=== PATIENT | female | born 1955 | race Caucasian/White ===

== ENCOUNTER 2018-11-24 10:44 | Day surgery (SDC) | payer OTHER, MEDICARE ==
[~2018-11-24 10:44] MED LIST: Betamethasone Acetate/Betamethasone Sod Phosphate 30 MG/5 ML MDV EPIDUR ONE; Iopamidol 200-M 10 ML vial ITHECAL ONE; Lidocaine 2% 5 ML SDV INJECT ONE; Ropivacaine 0.5% 5 MG/ML 30 ML SDV INJECT ONE
[2018-11-24] MEDS ORDERED: Lidocaine 2% 5 ML SDV ONE (11:45)
--- NOTE | 2018-11-24 19:16 | OR ---
SURGEON: Florence Munoz D.O. DATE OF PROCEDURE: 11/24/2018 PRIMARY SURGEON: Florence Munoz D.O. ASSISTANTS: OR staff present: 1. Dave Muniz. 2. Anna Johnson. 3. Smith Briggs RN. 4. Dave Lopez RT. PREOPERATIVE DIAGNOSES: 1. Lumbar spinal stenosis. 2. Lumbar degenerative disk disease. 3. Lumbar radiculopathy. POSTOPERATIVE DIAGNOSES: 1. Lumbar spinal stenosis. 2. Lumbar degenerative disk disease. 3. Lumbar radiculopathy. PROCEDURE PERFORMED: 1. Caudal epidural steroid injection. 2. Fluoroscopic guidance for needle placement. 3. Local with oral Valium for sedation. SCREENING QUESTIONS: The patient answered "no" to all of the following questions: 1. Are you allergic to latex? 2. Do you have a bleeding disorder? 3. Do you have any current local or systemic infections? 4. Are you taking any anti-inflammatories or blood thinners? 5. Do you have any joint replacements, heart valve replacements, or a pacemaker? DESCRIPTION OF PROCEDURE: The patient had the procedure thoroughly explained including all possible risks, benefits and alternatives. Consent was signed in my clinic indicating understanding and willingness to proceed. The patient presented to [facility] and was escorted to the dressing room to disrobe and change into a hospital gown. Preoperative vital signs were taken and stable. The patient reported that Valium was taken prior to the procedure. The patient was brought back to the procedure room and placed in the prone position on the procedure room table. A pillow was placed under the hips in order to flatten the lumbar lordosis. The back was prepped with ChloraPrep and sterilely draped. All personnel in the operating room were dressed in appropriate attire including surgical scrubs, head and shoe covers. This was to ensure sterility while in the treatment room. During the time fluoroscopy was in use, all personnel in the operating room wore lead mauro with thyroid collars. Sterile technique was used throughout the procedure. The patient was awake and conversant throughout the procedure. There was no evidence of infection at the site of needle insertion. Skeletal landmarks were identified under fluoroscopy for the caudal epidural. Skin was anesthetized with 2% lidocaine with a sterile 27-gauge 1.5 inch needle. Then a 20-gauge Tuohy epidural needle was placed in the epidural space with loss of resistance technique under fluoroscopic guidance. No heme, cerebrospinal fluid, or paresthesias were noted. Isovue-200 contrast dye was injected in 0.2 cubic centimeter increments and seen to outline the epidural space in both AP and lateral views. There was no intravascular flow pattern observed under live fluoroscopy. Then 12 milligrams of Celestone was slowly injected after negative aspiration. The patient tolerated the procedure well. Vital signs were stable during and after the procedure. The staff escorted the patient to the recovery area and the patient was released in stable condition after a brief stay in the recovery room monitored by the nurse. The patient was given both oral and written discharge and follow up instructions with recommendation to follow up given for 2-3 weeks. The patient voiced understanding including understanding of those signs and symptoms that would require emergency care. The patient knows how to contact the office if there are any additional problems or questions in the meantime. PREOPERATIVE PAIN: 5+/10. POSTOPERATIVE PAIN: 2+/10. FOLLOWUP: In the Pain Clinic in 3 weeks. VINCE / TESHA /[id number] MARY
== END 2018-11-24 13:00 | disposition home or self-care (01) ==
LOC: MW.SDS 10:44
PROVIDERS: ATTEND Anesthesiology
DX: M48.061 Spinal stenosis, lumbar region without neurogenic claudication (principal); M51.16 Intervertebral disc disorders with radiculopathy, lumbar region; M51.37 Other intervertebral disc degeneration, lumbosacral region; M43.10 Spondylolisthesis, site unspecified; M79.18 Myalgia, other site; M47.26 Other spondylosis with radiculopathy, lumbar region; J44.9 Chronic obstructive pulmonary disease, unspecified; F41.8 Other specified anxiety disorders; E11.40 Type 2 diabetes mellitus with diabetic neuropathy, unspecified; I10 Essential (primary) hypertension; F17.210 Nicotine dependence, cigarettes, uncomplicated; E78.00 Pure hypercholesterolemia, unspecified; Z79.82 Long term (current) use of aspirin; Z79.899 Other long term (current) drug therapy; Z79.84 Long term (current) use of oral hypoglycemic drugs
CPT/HCPCS: 62323; J2001

== ENCOUNTER 2019-07-28 16:18 | Observation (INO) | payer MEDICARE, OTHER ==
[2019-07-28] MEDS ORDERED: Ondansetron 4 MG/2 ML SDV IVPUSH ONE (16:30)
[2019-07-28] MEDS ORDERED: Sodium Chloride 0.9% 1,000 ML IV ONE (16:33)
--- NOTE | 2019-07-28 16:35 | EDM.PDOC ---
ED HPI GENERAL MEDICAL PROBLEM - General Chief Complaint: Abdominal Pain Stated Complaint: ABDOMINAL PAIN Time Seen by Provider: 07/28/19 16:29 Source of Information: Reports: Patient History Limitations: Reports: No Limitations - History of Present Illness INITIAL COMMENTS - FREE TEXT/NARRATIVE: This 63 year old female is admitted to the ED with a chief complaint of severe epigastric abdominal the is sharp through to the back since this morning. She denies drinking. She grades the pain a 10/10. She has nausea and vomiting several times today. She denies any chest pain, SOB or difficulty breathing. She denies any urinary symptoms. She denies any other complaints at this time. Onset: Today Quality: Reports: Sharp, Stabbing (through to the back) Severity: Moderate (to severe) Improves with: Reports: None Worsens with: Reports: None Abdominal Pain Score (Numeric/FACES): 10 - Related Data Allergies Allergy/AdvReac Type Severity Reaction Status Date / Time nickel Allergy Rash Verified 07/28/19 16:30 super glue Allergy Rash Uncoded 07/28/19 16:30 Home Meds: Home Meds Aspirin [Halfprin] 81 mg PO DAILY 07/28/19 [History] Carbidopa/Levodopa [Carbidopa-Levo ER 50-200] 1.5 tab PO BEDTIME 07/28/19 [ History] Gabapentin [Neurontin] 300 mg PO ASDIRECTED 07/28/19 [History] Lisinopril [Zestril] 5 mg PO DAILY 07/28/19 [History] Lovastatin 40 mg PO BEDTIME 07/28/19 [History] Sertraline HCl [Zoloft] 100 mg PO DAILY 07/28/19 [History] buPROPion HCl [Wellbutrin Xl] 150 mg PO DAILY 07/28/19 [History] metFORMIN HCl [Metformin HCl] 1,000 mg PO BIDMEALS 07/28/19 [History] ED ROS GENERAL - Review of Systems Review Of Systems: See Below Constitutional: Reports: Weight Loss (30 pounds over the past several months.) HEENT: Reports: No Symptoms Respiratory: Reports: No Symptoms Cardiovascular: Reports: No Symptoms Endocrine: Reports: No Symptoms GI/Abdominal: Reports: Abdominal Pain, Nausea, Vomiting. Denies: Black Stool, Bloody Stool, Diarrhea : Reports: No Symptoms Musculoskeletal: Reports: No Symptoms Skin: Reports: No Symptoms Neurological: Reports: No Symptoms ED EXAM, GI/ABD - Physical Exam Exam: See Below Exam Limited By: No Limitations General Appearance: Alert, Moderate Distress (complaining of abdominal pain that is sharp through to the back.) Throat/Mouth: Normal Inspection, Normal Lips, Normal Oropharynx Head: Atraumatic, Normocephalic Neck: Normal Inspection, Supple, Non-Tender, Full Range of Motion Respiratory/Chest: No Respiratory Distress, Lungs Clear, Normal Breath Sounds, Chest Non-Tender Cardiovascular: Normal Peripheral Pulses, Regular Rate, Rhythm, No Edema, No JVD , No Murmur GI/Abdominal Exam: Normal Bowel Sounds, Soft, No Distention, No Abnormal Bruit, No Mass, Guarding, Tender (tenderness in the upper abdomen extending to the epigastric area.). No: Rigid, Rebound (Female) Exam: Deferred Rectal (Female) Exam: Deferred Back Exam: Normal Inspection Extremities: Normal Inspection, Non-Tender, Normal Capillary Refill, Other ( muscle wasting noted). No: Leia's Sign Neurological: Alert, Oriented (times 3), CN II-XII Intact, Normal Reflexes Psychiatric: Normal Affect Skin Exam: Warm, Dry, Intact, Normal Color, No Rash Lymphatic: No Adenopathy Course - Vital Signs Text/Narrative:: I discussed this case with Dr. Saavedra at 8:00PM. The patient will be admitted to OBS/TELE with a diagnosis of intractable vomiting/dehydration/unexplained weigh loss. The patient agrees with the admission plan. Last Recorded V/S: Last Vital Signs Temp 95.0 F L 07/28/19 16:27 Pulse 74 07/28/19 18:29 Resp 18 07/28/19 18:29 BP 132/85 07/28/19 18:29 Pulse Ox 96 07/28/19 18:29 - Orders/Labs/Meds Orders: Active Orders 24 hr Category Date Time Status EKG Documentation Completion [RC] STAT Care 07/28/19 16:33 Active Sodium Chloride 0.9% [Normal Saline] 500 ml Med 07/28/19 19:00 Active IV .BOLUS Medication Orders Sodium Chloride (Normal Saline) 500 mls @ 500 mls/hr IV .BOLUS JAYMIE Last Admin: 07/28/19 19:09 Dose: 500 mls/hr Labs: Laboratory Tests 07/28/19 07/28/1907/27/20 Range/Units 16:51 16:51 16:51 WBC 16.90 H (4.0-11.0) K/uL RBC 5.05 (4.30-5.90) M/uL Hgb 14.8 (12.0-16.0) g/dL Hct 43.3 (36.0-46.0) % MCV 85.7 (80.0-98.0) fL MCH 29.3 (27.0-32.0) pg MCHC 34.2 (31.0-37.0) g/dL RDW Std Deviation 47.2 (28.0-62.0) fl RDW Coeff of Aj 15 (11.0-15.0) % Plt Count 300 (150-400) K/uL MPV 9.40 (7.40-12.00) fL Neut % (Auto) 87.2 H (48.0-80.0) % Lymph % (Auto) 7.5 L (16.0-40.0) % Starke % (Auto) 5.1 (0.0-15.0) % Eos % (Auto) 0.1 (0.0-7.0) % Baso % (Auto) 0.1 (0.0-1.5) % Neut # (Auto) 14.8 H (1.4-5.7) K/uL Lymph # (Auto) 1.3 (0.6-2.4) K/uL Starke # (Auto) 0.9 H (0.0-0.8) K/uL Eos # (Auto) 0.0 (0.0-0.7) K/uL Baso # (Auto) 0.0 (0.0-0.1) K/uL Nucleated RBC % 0.0 /100WBC Nucleated RBCs # 0 K/uL Lactate (0.20-2.00) mmol/L Sodium 139 (136-145) mmol/L Potassium 3.5 (3.5-5.1) mmol/L Chloride 100 (98-107) mmol/L Carbon Dioxide 24.7 (21.0-32.0) mmol/L BUN 17 (7.0-18.0) mg/dL Creatinine 0.9 (0.6-1.0) mg/dL Est Cr Clr Drug Dosing 47.03 mL/min Estimated GFR (MDRD) > 60.0 ml/min Glucose 249 H (74-106) mg/dL Calcium 9.9 (8.5-10.1) mg/dL Magnesium 1.2 L (1.8-2.4) mg/dL Total Bilirubin 0.8 (0.2-1.0) mg/dL AST 14 L (15-37) IU/L ALT 8 L (14-63) IU/L Alkaline Phosphatase 87 (46-116) U/L Total Protein 8.2 (6.4-8.2) g/dL Albumin 4.7 (3.4-5.0) g/dL Globulin 3.5 (2.6-4.0) g/dL Albumin/Globulin Ratio 1.3 (0.9-1.6) Lipase 128 (73-393) U/L Urine Color Urine Appearance Urine pH (5.0-8.0) Ur Specific [place] (1.001-1.035) Urine Protein (NEGATIVE) mg/dL Urine Glucose (UA) (NEGATIVE) mg/dL Urine Ketones (NEGATIVE) mg/dL Urine Occult Blood (NEGATIVE) Urine Nitrite (NEGATIVE) Urine Bilirubin (NEGATIVE) Urine Urobilinogen (<2.0) EU/dL Ur Leukocyte Esterase (NEGATIVE) Urine RBC (0-2/HPF) Urine WBC (0-5/HPF) Ur Epithelial Cells (NONE-FEW) Urine Bacteria (NEGATIVE) 07/28/19 07/28/19 Range/Units 18:25 19:03 WBC (4.0-11.0) K/uL RBC (4.30-5.90) M/uL Hgb (12.0-16.0) g/dL Hct (36.0-46.0) % MCV (80.0-98.0) fL MCH (27.0-32.0) pg MCHC (31.0-37.0) g/dL RDW Std Deviation (28.0-62.0) fl RDW Coeff of Aj (11.0-15.0) % Plt Count (150-400) K/uL MPV (7.40-12.00) fL Neut % (Auto) (48.0-80.0) % Lymph % (Auto) (16.0-40.0) % Starke % (Auto) (0.0-15.0) % Eos % (Auto) (0.0-7.0) % Baso % (Auto) (0.0-1.5) % Neut # (Auto) (1.4-5.7) K/uL Lymph # (Auto) (0.6-2.4) K/uL Starke # (Auto) (0.0-0.8) K/uL Eos # (Auto) (0.0-0.7) K/uL Baso # (Auto) (0.0-0.1) K/uL Nucleated RBC % /100WBC Nucleated RBCs # K/uL Lactate 1.1 (0.20-2.00) mmol/L Sodium (136-145) mmol/L Potassium (3.5-5.1) mmol/L Chloride (98-107) mmol/L Carbon Dioxide (21.0-32.0) mmol/L BUN (7.0-18.0) mg/dL Creatinine (0.6-1.0) mg/dL Est Cr Clr Drug Dosing mL/min Estimated GFR (MDRD) ml/min Glucose (74-106) mg/dL Calcium (8.5-10.1) mg/dL Magnesium (1.8-2.4) mg/dL Total Bilirubin (0.2-1.0) mg/dL AST (15-37) IU/L ALT (14-63) IU/L Alkaline Phosphatase (46-116) U/L Total Protein (6.4-8.2) g/dL Albumin (3.4-5.0) g/dL Globulin (2.6-4.0) g/dL Albumin/Globulin Ratio (0.9-1.6) Lipase (73-393) U/L Urine Color YELLOW Urine Appearance HAZY Urine pH 7.0 (5.0-8.0) Ur Specific [place] 1.025 (1.001-1.035) Urine Protein 30 H (NEGATIVE) mg/dL Urine Glucose (UA) 100 H (NEGATIVE) mg/dL Urine Ketones 40 H (NEGATIVE) mg/dL Urine Occult Blood TRACE-INTACT H (NEGATIVE) Urine Nitrite NEGATIVE (NEGATIVE) Urine Bilirubin NEGATIVE (NEGATIVE) Urine Urobilinogen 0.2 (<2.0) EU/dL Ur Leukocyte Esterase NEGATIVE (NEGATIVE) Urine RBC 0-4 (0-2/HPF) Urine WBC 0-3 (0-5/HPF) Ur Epithelial Cells OCCASIONAL (NONE-FEW) Urine Bacteria FEW (NEGATIVE) Meds: Medications Generic Name Dose Route Start Last Admin Trade Name Quentin PRN Reason Stop Dose Admin Sodium Chloride 500 mls @ 500 mls/hr 07/28/19 19:00 07/28/19 19:09 Normal Saline IV 500 mls/hr .BOLUS JAYMIE Administration Discontinued Medications Generic Name Dose Route Start Last Admin Trade Name Quentin PRN Reason Stop Dose Admin Sodium Chloride 1,000 mls @ 999 mls/hr 07/28/19 16:33 07/28/19 16:46 Normal Saline IV 07/28/19 17:33 999 mls/hr .Bolus ONE Administration Pantoprazole Sodium 40 mg/ 10 mls @ 300 mls/hr 07/28/19 18:50 07/28/19 19:11 Sodium Chloride IV 07/28/19 18:51 300 mls/hr NOW ONE Administration Iopamidol 62 ml 07/28/19 18:27 07/28/19 18:27 Isovue Multipack-370 (76%) IVPUSH 07/28/19 18:28 62 ml ONETIME ONE Administration Morphine Sulfate 4 mg 07/28/19 16:41 07/28/19 16:46 Morphine IVPUSH 07/28/19 16:42 4 mg ONETIME ONE Administration Ondansetron HCl 4 mg 07/28/19 16:30 07/28/19 16:46 Zofran IVPUSH 07/28/19 16:31 4 mg ONETIME ONE Administration Departure - Departure Time of Disposition: 20:16 Disposition: Refer to Observation Condition: Fair Clinical Impression: Intractable nausea and vomiting, Dehydration, moderate - Discharge Information *PRESCRIPTION DRUG MONITORING PROGRAM REVIEWED*: Yes *COPY OF PRESCRIPTION DRUG MONITORING REPORT IN PATIENT ELIO: Yes Referrals: Marguerite Cruz NP [Primary Care Provider] - Forms: ED Department Discharge Sepsis Event Note - Focused Exam Vital Signs: Vital Signs Temp Pulse Resp BP Pulse Ox 07/28/19 18:29 74 18 132/85 96 07/28/19 17:33 74 17 135/75 97 07/28/19 16:27 95.0 F L 95 22 H 169/125 H 98 Date Exam was Performed: 07/28/19 Time Exam was Performed: 20:10 - My Orders Last 24 Hours: My Active Orders 07/28/19 16:33 EKG Documentation Completion [RC] STAT 07/28/19 19:00 Sodium Chloride 0.9% [Normal Saline] 500 ml IV .BOLUS - Assessment/Plan Last 24 Hours: My Active Orders 07/28/19 16:33 EKG Documentation Completion [RC] STAT 07/28/19 19:00 Sodium Chloride 0.9% [Normal Saline] 500 ml IV .BOLUS
[2019-07-28] MEDS ORDERED: Morphine 4 MG/ML Syringe IVPUSH ONE (16:41)
[2019-07-28 17:23] LABS: BLOOD UREA NITROGEN,BUN 17 mg/dL (7.0-18.0); CARBON DIOXIDE,CO2 24.7 mmol/L (21.0-32.0); CHLORIDE,CL 100 mmol/L (98-107); GLUCOSE RANDOM 249 mg/dL (74-106); POTASSIUM,K 3.5 mmol/L (3.5-5.1); SODIUM,NA 139 mmol/L (136-145)
[2019-07-28] MEDS ORDERED: Iopamidol 755 MG/ML 200 ML Multipack Bottle IVPUSH ONE (18:27)
[2019-07-28] MEDS ORDERED: Pantoprazole 40 MG in Sodium Chloride 0.9% 10 ML IV ONE (18:50)
--- NOTE | 2019-07-28 18:54 | CT ---
CT abdomen and pelvis Technique: Multiple axial sections were obtained from above the dome of the diaphragm inferiorly through the pubic symphysis. Intravenous contrast was utilized. No oral contrast has been given. Comparison: No prior abdominal imaging is available. Findings: Visualized lung bases show nothing acute. Liver contains no focal parenchymal abnormality. Spleen appears within normal limits. Adrenal glands show no nodule. Pancreas shows no discrete abnormality. Gallbladder contains no calcified gallstones. Kidneys show symmetric contrast enhancement. Several minimal cortical lesions are noted within the left kidney believed to represent very minimal cysts. Several nonobstructing calculi are seen within the right kidney. Aorta shows atherosclerotic calcification without aneurysm. No retroperitoneal adenopathy or mesenteric abnormalities are seen. No pelvic mass or adenopathy is seen. No free fluid or inflammatory change is seen. Appendix not definitely visualized. Bone window settings were reviewed which shows degenerative change within the spine primarily at L5-S1 with disc space narrowing and mild spondylolisthesis due to degenerative apophyseal change. No acute osseous finding is seen. Impression: 1. Several small nonobstructing calculi within the right kidney. 2. Other findings as noted above. 3. Nothing acute is appreciated on CT study of the abdomen and pelvis. Diagnostic code #2 Study was dictated in MDT
[2019-07-28] MEDS ORDERED: Sodium Chloride 0.9% 500 ML IV SCH (19:00)
[2019-07-28] MEDS ORDERED: Albuterol/Ipratropium 3.0-0.5 MG/3 ML Neb Soln NEB PRN (20:57)
[2019-07-28] MEDS ORDERED: Ondansetron 4 MG/2 ML SDV IVPUSH PRN (20:57)
[2019-07-28] MEDS ORDERED: Morphine 10 MG/ML Syringe IVPUSH PRN (20:57)
[2019-07-28] MEDS ORDERED: Magnesium Sulfate/Water 4 GM in Premix Bag 1 BAG IV ONE (21:01)
[2019-07-28] MEDS ORDERED: Gabapentin 300 MG Cap PO SCH (21:15)
[2019-07-28 21:33] LABS: HEMOGLOBIN A1C 6.3 % (4.5-6.2)
[2019-07-28] MEDS ORDERED: Carbidopa/Levodopa 50-200 MG Tab.ER PO SCH (22:33)
[2019-07-28] MEDS ORDERED: Gabapentin 300 MG Cap PO ONE (22:34)
[2019-07-28] MEDS: Lactated Ringers 1,000 ML IV SCH (23:10)
--- NOTE | 2019-07-28 23:52 | PCM.HP.2 ---
H&P History of Present Illness - General Date of Service: 07/28/19 Admit Problem/Dx: Admission Diagnosis/Problem Admission Diagnosis/Problem Dehydration - History of Present Illness Initial Comments - Free Text/Narative: Patient is a 63 y/o F with PMH Of COPD, CABG,Depression, anxiety, hiatal hernia , HTN, HLD, lumbar radiculopathy who comes in for evaluation of severe epigastric pain since this morning. She grades the pain a 10/10. Pain is associated with nausea and vomiting several times today. She denies any chest pain, SOB or difficulty breathing. She denies any urinary symptoms. She denies any other complaints at this time. In the ER CT abdomen was obtained which showed seceral non obstructing stones in her right kidney. Patient is being admitted for further management. Onset of Symptoms: Reports: Gradual Duration of Symptoms: Reports: Day(s): Location: Reports: Abdomen Quality: Reports: Burning Improves with: Reports: None Worsens with: Reports: None Abdominal Pain Score (Numeric/FACES): 10 - Related Data Allergies/Adverse Reactions: Allergies Allergy/AdvReac Type Severity Reaction Status Date / Time nickel Allergy Rash Verified 07/28/19 16:30 super glue Allergy Rash Uncoded 07/28/19 16:30 Home Medications: Home Meds Aspirin [Halfprin] 81 mg PO DAILY 07/28/19 [History] Carbidopa/Levodopa [Carbidopa-Levo ER 50-200] 1.5 tab PO BEDTIME 07/28/19 [ History] Gabapentin [Neurontin] 300 mg PO ASDIRECTED 07/28/19 [History] Lisinopril [Zestril] 5 mg PO DAILY 07/28/19 [History] Lovastatin 40 mg PO BEDTIME 07/28/19 [History] Sertraline HCl [Zoloft] 100 mg PO DAILY 07/28/19 [History] buPROPion HCl [Wellbutrin Xl] 150 mg PO DAILY 07/28/19 [History] metFORMIN HCl [Metformin HCl] 1,000 mg PO BIDMEALS 07/28/19 [History] Past Medical History Cardiovascular History: Reports: Bypass Musculoskeletal History: Reports: Arthritis Psychiatric History: Reports: Anxiety, Depression Endocrine/Metabolic History: Reports: Diabetes, Type II - Past Surgical History GI Surgical History: Reports: Other (See Below) Other GI Surgeries/Procedures: Hernia Repair Musculoskeletal Surgical History: Reports: Knee Replacement Other Musculoskeletal Surgeries/Procedures:: Left Knee Replacement Social & Family History - Tobacco Use Smoking Status *Q: Current Every Day Smoker Years of Tobacco use: 20 Packs/Tins Daily: 1 - Caffeine Use Caffeine Use: Reports: Coffee - Recreational Drug Use Recreational Drug Use: Yes Recreational Drug Type: Reports: Marijuana/Hashish H&P Review of Systems - Review of Systems: Review Of Systems: See Below General: Denies: Fever, Chills, Malaise Pulmonary: Denies: Shortness of Breath, Wheezing, Pleuritic Chest Pain Cardiovascular: Denies: Chest Pain, Palpitations, Dyspnea on Exertion Gastrointestinal: Reports: Abdominal Pain, Decreased Appetite, Nausea, Vomiting. Denies: Anorexia, Black Stool, Bloody Stool, Constipation Genitourinary: Denies: Dysuria, Frequency, Burning Musculoskeletal: Reports: Back Pain, Leg Pain, Foot Pain. Denies: Neck Pain, Shoulder Pain, Arm Pain, Joint Pain Skin: Denies: Cyanosis, Jaundice, Mottled Psychiatric: Denies: Confusion, Depression, Mood Lability Exam - Exam Exam: See Below - Vital Signs Vital Signs: Last Vital Signs Temp 35.0 C L 07/28/19 16:27 Pulse 89 07/28/19 20:52 Resp 18 07/28/19 20:52 BP 123/78 07/28/19 20:52 Pulse Ox 96 07/28/19 20:52 Weight: 52.163 kg - Exam General: Alert, Oriented HEENT: Conjunctiva Clear Neck: Trachea Midline. No: Supple Lungs: Clear to Auscultation, Normal Respiratory Effort, Decreased Breath Sounds Cardiovascular: Regular Rate, Regular Rhythm, Normal S1, Normal S2 GI/Abdominal Exam: Normal Bowel Sounds, Soft, Non-Tender Back Exam: Decreased Range of Motion. No: CVA Tenderness (L), CVA Tenderness (R ) Skin: Warm, Dry - Patient Data Lab Results Last 24 hrs: Laboratory Results - last 24 hr 07/28/19 07/28/19 07/28/19 Range/Units 16:51 16:51 16:51 WBC 16.90 H (4.0-11.0) K/uL RBC 5.05 (4.30-5.90) M/uL Hgb 14.8 (12.0-16.0) g/dL Hct 43.3 (36.0-46.0) % MCV 85.7 (80.0-98.0) fL MCH 29.3 (27.0-32.0) pg MCHC 34.2 (31.0-37.0) g/dL RDW Std Deviation 47.2 (28.0-62.0) fl RDW Coeff of Aj 15 (11.0-15.0) % Plt Count 300 (150-400) K/uL MPV 9.40 (7.40-12.00) fL Neut % (Auto) 87.2 H (48.0-80.0) % Lymph % (Auto) 7.5 L (16.0-40.0) % [place] % (Auto) 5.1 (0.0-15.0) % Eos % (Auto) 0.1 (0.0-7.0) % Baso % (Auto) 0.1 (0.0-1.5) % Neut # (Auto) 14.8 H (1.4-5.7) K/uL Lymph # (Auto) 1.3 (0.6-2.4) K/uL [place] # (Auto) 0.9 H (0.0-0.8) K/uL Eos # (Auto) 0.0 (0.0-0.7) K/uL Baso # (Auto) 0.0 (0.0-0.1) K/uL Nucleated RBC % 0.0 /100WBC Nucleated RBCs # 0 K/uL Lactate (0.20-2.00) mmol/L Sodium 139 (136-145) mmol/L Potassium 3.5 (3.5-5.1) mmol/L Chloride 100 (98-107) mmol/L Carbon Dioxide 24.7 (21.0-32.0) mmol/L BUN 17 (7.0-18.0) mg/dL Creatinine 0.9 (0.6-1.0) mg/dL Est Cr Clr Drug Dosing 47.03 mL/min Estimated GFR (MDRD) > 60.0 ml/min Glucose 249 H (74-106) mg/dL Hemoglobin A1c (4.5-6.2) % Calcium 9.9 (8.5-10.1) mg/dL Magnesium 1.2 L (1.8-2.4) mg/dL Total Bilirubin 0.8 (0.2-1.0) mg/dL AST 14 L (15-37) IU/L ALT 8 L (14-63) IU/L Alkaline Phosphatase 87 (46-116) U/L Total Protein 8.2 (6.4-8.2) g/dL Albumin 4.7 (3.4-5.0) g/dL Globulin 3.5 (2.6-4.0) g/dL Albumin/Globulin Ratio 1.3 (0.9-1.6) Lipase 128 (73-393) U/L Urine Color Urine Appearance Urine pH (5.0-8.0) Ur Specific [place] (1.001-1.035) Urine Protein (NEGATIVE) mg/dL Urine Glucose (UA) (NEGATIVE) mg/dL Urine Ketones (NEGATIVE) mg/dL Urine Occult Blood (NEGATIVE) Urine Nitrite (NEGATIVE) Urine Bilirubin (NEGATIVE) Urine Urobilinogen (<2.0) EU/dL Ur Leukocyte Esterase (NEGATIVE) Urine RBC (0-2/HPF) Urine WBC (0-5/HPF) Ur Epithelial Cells (NONE-FEW) Urine Bacteria (NEGATIVE) 07/28/19 07/28/19 07/28/19 Range/Units 18:25 19:03 19:03 WBC (4.0-11.0) K/uL RBC (4.30-5.90) M/uL Hgb (12.0-16.0) g/dL Hct (36.0-46.0) % MCV (80.0-98.0) fL MCH (27.0-32.0) pg MCHC (31.0-37.0) g/dL RDW Std Deviation (28.0-62.0) fl RDW Coeff of Aj (11.0-15.0) % Plt Count (150-400) K/uL MPV (7.40-12.00) fL Neut % (Auto) (48.0-80.0) % Lymph % (Auto) (16.0-40.0) % [place] % (Auto) (0.0-15.0) % Eos % (Auto) (0.0-7.0) % Baso % (Auto) (0.0-1.5) % Neut # (Auto) (1.4-5.7) K/uL Lymph # (Auto) (0.6-2.4) K/uL [place] # (Auto) (0.0-0.8) K/uL Eos # (Auto) (0.0-0.7) K/uL Baso # (Auto) (0.0-0.1) K/uL Nucleated RBC % /100WBC Nucleated RBCs # K/uL Lactate 1.1 (0.20-2.00) mmol/L Sodium (136-145) mmol/L Potassium (3.5-5.1) mmol/L Chloride (98-107) mmol/L Carbon Dioxide (21.0-32.0) mmol/L BUN (7.0-18.0) mg/dL Creatinine (0.6-1.0) mg/dL Est Cr Clr Drug Dosing mL/min Estimated GFR (MDRD) ml/min Glucose (74-106) mg/dL Hemoglobin A1c 6.3 H (4.5-6.2) % Calcium (8.5-10.1) mg/dL Magnesium (1.8-2.4) mg/dL Total Bilirubin (0.2-1.0) mg/dL AST (15-37) IU/L ALT (14-63) IU/L Alkaline Phosphatase (46-116) U/L Total Protein (6.4-8.2) g/dL Albumin (3.4-5.0) g/dL Globulin (2.6-4.0) g/dL Albumin/Globulin Ratio (0.9-1.6) Lipase (73-393) U/L Urine Color YELLOW Urine Appearance HAZY Urine pH 7.0 (5.0-8.0) Ur Specific [place] 1.025 (1.001-1.035) Urine Protein 30 H (NEGATIVE) mg/dL Urine Glucose (UA) 100 H (NEGATIVE) mg/dL Urine Ketones 40 H (NEGATIVE) mg/dL Urine Occult Blood TRACE-INTACT H (NEGATIVE) Urine Nitrite NEGATIVE (NEGATIVE) Urine Bilirubin NEGATIVE (NEGATIVE) Urine Urobilinogen 0.2 (<2.0) EU/dL Ur Leukocyte Esterase NEGATIVE (NEGATIVE) Urine RBC 0-4 (0-2/HPF) Urine WBC 0-3 (0-5/HPF) Ur Epithelial Cells OCCASIONAL (NONE-FEW) Urine Bacteria FEW (NEGATIVE) Result Diagrams: 07/28/19 16:51 07/28/19 16:51 Sepsis Event Note - Evaluation Sepsis Screening Result: No Definite Risk - Focused Exam Vital Signs: Vital Signs Temp Pulse Resp BP Pulse Ox 07/28/19 20:52 89 18 123/78 96 07/28/19 18:29 74 18 132/85 96 07/28/19 17:33 74 17 135/75 97 07/28/19 16:27 35.0 C L 95 22 H 169/125 H 98 Date Exam was Performed: 07/29/19 Time Exam was Performed: 00:36 - Problem List (1) Intractable nausea and vomiting SNOMED Code(s): 427946280 ICD Code: R11.2 - NAUSEA WITH VOMITING, UNSPECIFIED Status: Acute Current Visit: Yes Problem List Initiated/Reviewed/Updated: Yes Orders Last 24hrs: Active Orders 24 hr Category Date Time Status Admission Status [Patient Status] [ADT] Stat ADT 07/28/19 20:17 Active Ambulate [RC] ASDIRECTED Care 07/28/19 20:57 Active Ambulate [RC] PER UNIT ROUTINE Care 07/28/19 20:59 Active Antiembolic Devices [RC] PER UNIT ROUTINE Care 07/28/19 20:59 Active EKG Documentation Completion [RC] STAT Care 07/28/19 16:33 Active Oxygen Therapy [RC] PRN Care 07/28/19 20:58 Active RT Aerosol Therapy [RC] ASDIRECTED Care 07/28/19 21:00 Active Urinary Catheter Assessment [RC] ASDIRECTED Care 07/28/19 20:57 Active VTE/DVT Education [RC] PER UNIT ROUTINE Care 07/28/19 20:58 Active Vital Signs [RC] Q4H Care 07/28/19 20:58 Active Clear Liquid Diet [DIET] Diet 07/28/19 Dinner Active Albuterol/Ipratropium [DuoNeb 3.0-0.5 MG/3 ML] Med 07/28/19 20:57 Active 3 ml NEB Q4HRRT PRN Aspirin [Halfprin] Med 07/29/19 09:00 Active 81 mg PO DAILY Carbidopa/Levodopa [Sinemet Cr 50-200 mg] Med 07/28/19 22:33 Active 1.5 tab PO BEDTIME Gabapentin [Neurontin] Med 07/28/19 21:15 Active 300 mg PO ASDIRECTED Insulin Aspart [NovoLOG] Med 07/29/19 07:30 Active See Protocol SUBCUT TIDAC Lactated Ringers [Ringers, Lactated] 1,000 ml Med 07/28/19 21:00 Active IV ASDIRECTED Lovastatin [Lovastatin] Med 07/29/19 21:00 Active 40 mg PO BEDTIME Morphine Med 07/28/19 20:57 Active 2 mg IVPUSH Q4H PRN Ondansetron [Zofran] Med 07/28/19 20:57 Active 4 mg IVPUSH Q4H PRN Sertraline [Zoloft] Med 07/29/19 09:00 Active 100 mg PO DAILY Sodium Chloride 0.9% [Normal Saline] 500 ml Med 07/28/19 19:00 Active IV .BOLUS buPROPion [Wellbutrin XL] Med 07/29/19 09:00 Active 150 mg PO DAILY lisinopriL [Prinivil] Med 07/29/19 09:00 Active 5 mg PO DAILY Sequential Compression Device [OM.PC] Per Unit Routine Oth 07/28/19 20:59 Ordered Resuscitation Status Routine Resus Stat 07/28/19 20:57 Ordered Medication Orders Albuterol/Ipratropium (Duoneb 3.0-0.5 Mg/3 Ml) 3 ml NEB Q4HRRT PRN PRN Reason: Shortness Of Breath/wheezing Aspirin (Halfprin) 81 mg PO DAILY JAYMIE Bupropion HCl (Wellbutrin Xl) 150 mg PO DAILY JAYMIE Carbidopa/Levodopa (Sinemet Cr 50-200 Mg) 1.5 tab PO BEDTIME JAYMIE Last Admin: 07/28/19 23:37 Dose: 1.5 tab Gabapentin (Neurontin) 300 mg PO ASDIRECTED JAYMIE Sodium Chloride (Normal Saline) 500 mls @ 500 mls/hr IV .BOLUS JAYMIE Last Admin: 07/28/19 19:09 Dose: 500 mls/hr Lactated Ringer's (Ringers, Lactated) 1,000 mls @ 125 mls/hr IV ASDIRECTED JAYMIE Last Admin: 07/28/19 23:10 Dose: 125 mls/hr Insulin Aspart (Novolog) 0 unit SUBCUT TIDAC JAYMIE; Protocol Lisinopril (Prinivil) 5 mg PO DAILY JAYMIE Morphine Sulfate (Morphine) 2 mg IVPUSH Q4H PRN PRN Reason: Pain (severe 7-10) Stop: 07/29/19 20:59 Non-Formulary Medication (Lovastatin [Lovastatin]) 40 mg PO BEDTIME JAYMIE Ondansetron HCl (Zofran) 4 mg IVPUSH Q4H PRN PRN Reason: Nausea/Vomiting Sertraline HCl (Zoloft) 100 mg PO DAILY JAYMIE Assessment/Plan Comment:: 63 y/o F admitted for epigastric pain,.N/V, Nephrolithiasis Will start fluids Will star clear diet advance as tolerated Morphine for pain, PPI daily UA noted Monitor and replete electrolytes SSI DuoNEbs Check troponin
[2019-07-29 07:12] LABS: BLOOD UREA NITROGEN,BUN 14 mg/dL (7.0-18.0); CARBON DIOXIDE,CO2 28.9 mmol/L (21.0-32.0); CHLORIDE,CL 104 mmol/L (98-107); GLUCOSE RANDOM 96 mg/dL (74-106); POTASSIUM,K 3.6 mmol/L (3.5-5.1); SODIUM,NA 140 mmol/L (136-145)
[2019-07-29] MEDS: Insulin Aspart 100 Units/ML 3 ML Pen SUBCUT SCH ×3 (08:12→17:32)
[2019-07-29] MEDS ORDERED: Sertraline 100 MG Tab PO SCH (09:00)
[2019-07-29] MEDS ORDERED: buPROPion 150 MG Tab.ER PO SCH (09:00)
[2019-07-29] MEDS ORDERED: Lisinopril 5 MG Tab PO SCH (09:00)
[2019-07-29] MEDS ORDERED: Aspirin 81 MG Tab.EC PO SCH (09:00)
[2019-07-29] MEDS ORDERED: Pantoprazole 40 MG in Sodium Chloride 0.9% 10 ML IV SCH (09:00)
[2019-07-29] MEDS ORDERED: Ketorolac 30 MG/ML SDV IVPUSH PRN (11:23)
[2019-07-29] MEDS ORDERED: Metoclopramide 10 MG/2 ML SDV IV PRN (11:31)
[2019-07-29] MEDS ORDERED: diphenhydrAMINE 50 MG/ML SDV IVPUSH ONE (11:32)
--- NOTE | 2019-07-29 12:48 | PCM.PN ---
- General Info Date of Service: 07/29/19 Subjective Update: Patient reports severe abdominal pain and nausea with vomiting started after receiving IV protonix this morning. Prior to this, patient reported eating clear liquid breakfast without any difficulty. No pain overnight. - Patient Data Vitals - Most Recent: Last Vital Signs Temp 97.4 F 07/29/19 08:00 Pulse 62 07/29/19 08:00 Resp 16 07/29/19 08:00 BP 124/82 07/29/19 09:10 Pulse Ox 98 07/29/19 08:00 Weight - Most Recent: 115 lb I&O - Last 24 Hours: Intake & Output 07/28/19 07/29/19 07/29/19 22:59 06:59 14:59 Intake Total 620 Balance 620 Lab Results Last 24 Hours: Laboratory Results - last 24 hr 07/28/19 07/28/19 07/28/19 Range/Units 16:51 16:51 16:51 WBC 16.90 H (4.0-11.0) K/uL RBC 5.05 (4.30-5.90) M/uL Hgb 14.8 (12.0-16.0) g/dL Hct 43.3 (36.0-46.0) % MCV 85.7 (80.0-98.0) fL MCH 29.3 (27.0-32.0) pg MCHC 34.2 (31.0-37.0) g/dL RDW Std Deviation 47.2 (28.0-62.0) fl RDW Coeff of Aj 15 (11.0-15.0) % Plt Count 300 (150-400) K/uL MPV 9.40 (7.40-12.00) fL Neut % (Auto) 87.2 H (48.0-80.0) % Lymph % (Auto) 7.5 L (16.0-40.0) % [place] % (Auto) 5.1 (0.0-15.0) % Eos % (Auto) 0.1 (0.0-7.0) % Baso % (Auto) 0.1 (0.0-1.5) % Neut # (Auto) 14.8 H (1.4-5.7) K/uL Lymph # (Auto) 1.3 (0.6-2.4) K/uL [place] # (Auto) 0.9 H (0.0-0.8) K/uL Eos # (Auto) 0.0 (0.0-0.7) K/uL Baso # (Auto) 0.0 (0.0-0.1) K/uL Nucleated RBC % 0.0 /100WBC Nucleated RBCs # 0 K/uL Lactate (0.20-2.00) mmol/L Sodium 139 (136-145) mmol/L Potassium 3.5 (3.5-5.1) mmol/L Chloride 100 (98-107) mmol/L Carbon Dioxide 24.7 (21.0-32.0) mmol/L BUN 17 (7.0-18.0) mg/dL Creatinine 0.9 (0.6-1.0) mg/dL Est Cr Clr Drug Dosing 47.03 mL/min Estimated GFR (MDRD) > 60.0 ml/min Glucose 249 H (74-106) mg/dL POC Glucose (60-110) mg/dL Hemoglobin A1c (4.5-6.2) % Calcium 9.9 (8.5-10.1) mg/dL Phosphorus (2.6-4.7) mg/dL Magnesium 1.2 L (1.8-2.4) mg/dL Total Bilirubin 0.8 (0.2-1.0) mg/dL AST 14 L (15-37) IU/L ALT 8 L (14-63) IU/L Alkaline Phosphatase 87 (46-116) U/L Troponin I (0.000-0.056) ng/mL Total Protein 8.2 (6.4-8.2) g/dL Albumin 4.7 (3.4-5.0) g/dL Globulin 3.5 (2.6-4.0) g/dL Albumin/Globulin Ratio 1.3 (0.9-1.6) Lipase 128 (73-393) U/L Urine Color Urine Appearance Urine pH (5.0-8.0) Ur Specific [place] (1.001-1.035) Urine Protein (NEGATIVE) mg/dL Urine Glucose (UA) (NEGATIVE) mg/dL Urine Ketones (NEGATIVE) mg/dL Urine Occult Blood (NEGATIVE) Urine Nitrite (NEGATIVE) Urine Bilirubin (NEGATIVE) Urine Urobilinogen (<2.0) EU/dL Ur Leukocyte Esterase (NEGATIVE) Urine RBC (0-2/HPF) Urine WBC (0-5/HPF) Ur Epithelial Cells (NONE-FEW) Urine Bacteria (NEGATIVE) 07/28/19 07/28/19 07/28/19 Range/Units 18:25 19:03 19:03 WBC (4.0-11.0) K/uL RBC (4.30-5.90) M/uL Hgb (12.0-16.0) g/dL Hct (36.0-46.0) % MCV (80.0-98.0) fL MCH (27.0-32.0) pg MCHC (31.0-37.0) g/dL RDW Std Deviation (28.0-62.0) fl RDW Coeff of Aj (11.0-15.0) % Plt Count (150-400) K/uL MPV (7.40-12.00) fL Neut % (Auto) (48.0-80.0) % Lymph % (Auto) (16.0-40.0) % [place] % (Auto) (0.0-15.0) % Eos % (Auto) (0.0-7.0) % Baso % (Auto) (0.0-1.5) % Neut # (Auto) (1.4-5.7) K/uL Lymph # (Auto) (0.6-2.4) K/uL [place] # (Auto) (0.0-0.8) K/uL Eos # (Auto) (0.0-0.7) K/uL Baso # (Auto) (0.0-0.1) K/uL Nucleated RBC % /100WBC Nucleated RBCs # K/uL Lactate 1.1 (0.20-2.00) mmol/L Sodium (136-145) mmol/L Potassium (3.5-5.1) mmol/L Chloride (98-107) mmol/L Carbon Dioxide (21.0-32.0) mmol/L BUN (7.0-18.0) mg/dL Creatinine (0.6-1.0) mg/dL Est Cr Clr Drug Dosing mL/min Estimated GFR (MDRD) ml/min Glucose (74-106) mg/dL POC Glucose (60-110) mg/dL Hemoglobin A1c 6.3 H (4.5-6.2) % Calcium (8.5-10.1) mg/dL Phosphorus (2.6-4.7) mg/dL Magnesium (1.8-2.4) mg/dL Total Bilirubin (0.2-1.0) mg/dL AST (15-37) IU/L ALT (14-63) IU/L Alkaline Phosphatase (46-116) U/L Troponin I (0.000-0.056) ng/mL Total Protein (6.4-8.2) g/dL Albumin (3.4-5.0) g/dL Globulin (2.6-4.0) g/dL Albumin/Globulin Ratio (0.9-1.6) Lipase (73-393) U/L Urine Color YELLOW Urine Appearance HAZY Urine pH 7.0 (5.0-8.0) Ur Specific [place] 1.025 (1.001-1.035) Urine Protein 30 H (NEGATIVE) mg/dL Urine Glucose (UA) 100 H (NEGATIVE) mg/dL Urine Ketones 40 H (NEGATIVE) mg/dL Urine Occult Blood TRACE-INTACT H (NEGATIVE) Urine Nitrite NEGATIVE (NEGATIVE) Urine Bilirubin NEGATIVE (NEGATIVE) Urine Urobilinogen 0.2 (<2.0) EU/dL Ur Leukocyte Esterase NEGATIVE (NEGATIVE) Urine RBC 0-4 (0-2/HPF) Urine WBC 0-3 (0-5/HPF) Ur Epithelial Cells OCCASIONAL (NONE-FEW) Urine Bacteria FEW (NEGATIVE) 07/29/19 07/29/19 07/29/19 Range/Units 00:50 06:30 06:30 WBC 9.48 (4.0-11.0) K/uL RBC 4.26 L (4.30-5.90) M/uL Hgb 12.2 (12.0-16.0) g/dL Hct 37.2 (36.0-46.0) % MCV 87.3 (80.0-98.0) fL MCH 28.6 (27.0-32.0) pg MCHC 32.8 (31.0-37.0) g/dL RDW Std Deviation 48.3 (28.0-62.0) fl RDW Coeff of Aj 15 (11.0-15.0) % Plt Count 251 (150-400) K/uL MPV 9.20 (7.40-12.00) fL Neut % (Auto) 63.8 (48.0-80.0) % Lymph % (Auto) 27.7 (16.0-40.0) % Cass % (Auto) 8.2 (0.0-15.0) % Eos % (Auto) 0.2 (0.0-7.0) % Baso % (Auto) 0.1 (0.0-1.5) % Neut # (Auto) 6.0 H (1.4-5.7) K/uL Lymph # (Auto) 2.6 H (0.6-2.4) K/uL [place] # (Auto) 0.8 (0.0-0.8) K/uL Eos # (Auto) 0.0 (0.0-0.7) K/uL Baso # (Auto) 0.0 (0.0-0.1) K/uL Nucleated RBC % 0.0 /100WBC Nucleated RBCs # 0 K/uL Lactate (0.20-2.00) mmol/L Sodium 140 (136-145) mmol/L Potassium 3.6 (3.5-5.1) mmol/L Chloride 104 (98-107) mmol/L Carbon Dioxide 28.9 (21.0-32.0) mmol/L BUN 14 (7.0-18.0) mg/dL Creatinine 0.7 (0.6-1.0) mg/dL Est Cr Clr Drug Dosing 60.46 mL/min Estimated GFR (MDRD) > 60.0 ml/min Glucose 96 (74-106) mg/dL POC Glucose (60-110) mg/dL Hemoglobin A1c (4.5-6.2) % Calcium 8.7 (8.5-10.1) mg/dL Phosphorus 3.6 (2.6-4.7) mg/dL Magnesium 3.1 H (1.8-2.4) mg/dL Total Bilirubin (0.2-1.0) mg/dL AST (15-37) IU/L ALT (14-63) IU/L Alkaline Phosphatase (46-116) U/L Troponin I < 0.050 (0.000-0.056) ng/mL Total Protein (6.4-8.2) g/dL Albumin (3.4-5.0) g/dL Globulin (2.6-4.0) g/dL Albumin/Globulin Ratio (0.9-1.6) Lipase (73-393) U/L Urine Color Urine Appearance Urine pH (5.0-8.0) Ur Specific [place] (1.001-1.035) Urine Protein (NEGATIVE) mg/dL Urine Glucose (UA) (NEGATIVE) mg/dL Urine Ketones (NEGATIVE) mg/dL Urine Occult Blood (NEGATIVE) Urine Nitrite (NEGATIVE) Urine Bilirubin (NEGATIVE) Urine Urobilinogen (<2.0) EU/dL Ur Leukocyte Esterase (NEGATIVE) Urine RBC (0-2/HPF) Urine WBC (0-5/HPF) Ur Epithelial Cells (NONE-FEW) Urine Bacteria (NEGATIVE) 07/29/19 07/29/19 Range/Units 07:14 11:49 WBC (4.0-11.0) K/uL RBC (4.30-5.90) M/uL Hgb (12.0-16.0) g/dL Hct (36.0-46.0) % MCV (80.0-98.0) fL MCH (27.0-32.0) pg MCHC (31.0-37.0) g/dL RDW Std Deviation (28.0-62.0) fl RDW Coeff of Aj (11.0-15.0) % Plt Count (150-400) K/uL MPV (7.40-12.00) fL Neut % (Auto) (48.0-80.0) % Lymph % (Auto) (16.0-40.0) % Cass % (Auto) (0.0-15.0) % Eos % (Auto) (0.0-7.0) % Baso % (Auto) (0.0-1.5) % Neut # (Auto) (1.4-5.7) K/uL Lymph # (Auto) (0.6-2.4) K/uL Cass # (Auto) (0.0-0.8) K/uL Eos # (Auto) (0.0-0.7) K/uL Baso # (Auto) (0.0-0.1) K/uL Nucleated RBC % /100WBC Nucleated RBCs # K/uL Lactate (0.20-2.00) mmol/L Sodium (136-145) mmol/L Potassium (3.5-5.1) mmol/L Chloride (98-107) mmol/L Carbon Dioxide (21.0-32.0) mmol/L BUN (7.0-18.0) mg/dL Creatinine (0.6-1.0) mg/dL Est Cr Clr Drug Dosing mL/min Estimated GFR (MDRD) ml/min Glucose (74-106) mg/dL POC Glucose 89 164 H (60-110) mg/dL Hemoglobin A1c (4.5-6.2) % Calcium (8.5-10.1) mg/dL Phosphorus (2.6-4.7) mg/dL Magnesium (1.8-2.4) mg/dL Total Bilirubin (0.2-1.0) mg/dL AST (15-37) IU/L ALT (14-63) IU/L Alkaline Phosphatase (46-116) U/L Troponin I (0.000-0.056) ng/mL Total Protein (6.4-8.2) g/dL Albumin (3.4-5.0) g/dL Globulin (2.6-4.0) g/dL Albumin/Globulin Ratio (0.9-1.6) Lipase (73-393) U/L Urine Color Urine Appearance Urine pH (5.0-8.0) Ur Specific [place] (1.001-1.035) Urine Protein (NEGATIVE) mg/dL Urine Glucose (UA) (NEGATIVE) mg/dL Urine Ketones (NEGATIVE) mg/dL Urine Occult Blood (NEGATIVE) Urine Nitrite (NEGATIVE) Urine Bilirubin (NEGATIVE) Urine Urobilinogen (<2.0) EU/dL Ur Leukocyte Esterase (NEGATIVE) Urine RBC (0-2/HPF) Urine WBC (0-5/HPF) Ur Epithelial Cells (NONE-FEW) Urine Bacteria (NEGATIVE) Med Orders - Current: Current Medications Albuterol/Ipratropium (Duoneb 3.0-0.5 Mg/3 Ml) 3 ml NEB Q4HRRT PRN PRN Reason: Shortness Of Breath/wheezing Aspirin (Halfprin) 81 mg PO DAILY [facility]MIE Last Admin: 07/29/19 09:10 Dose: 81 mg Bupropion HCl (Wellbutrin Xl) 150 mg PO DAILY [facility] Last Admin: 07/29/19 09:10 Dose: 150 mg Carbidopa/Levodopa (Sinemet Cr 50-200 Mg) 1.5 tab PO BEDTIME JAYMIE Last Admin: 07/28/19 23:37 Dose: 1.5 tab Gabapentin (Neurontin) 300 mg PO ASDIRECTED [facility] Sodium Chloride (Normal Saline) 500 mls @ 500 mls/hr IV .BOLUS [facility] Last Admin: 07/28/19 19:09 Dose: 500 mls/hr Lactated Ringer's (Ringers, Lactated) 1,000 mls @ 125 mls/hr IV ASDIRECTED [facility] Last Admin: 07/28/19 23:10 Dose: 125 mls/hr Insulin Aspart (Novolog) 0 unit SUBCUT TIDAC [facility]; Protocol Last Admin: 07/29/19 12:18 Dose: Not Given Ketorolac Tromethamine (Toradol) 30 mg IVPUSH Q6H PRN PRN Reason: Pain Lisinopril (Prinivil) 5 mg PO DAILY [facility] Last Admin: 07/29/19 09:10 Dose: 5 mg Metoclopramide HCl (Reglan) 5 mg IV QID PRN PRN Reason: Nausea Last Admin: 07/29/19 12:17 Dose: 5 mg Morphine Sulfate (Morphine) 2 mg IVPUSH Q4H PRN PRN Reason: Pain (severe 7-10) Stop: 07/29/19 20:59 Last Admin: 07/29/19 09:52 Dose: 2 mg Non-Formulary Medication (Lovastatin [Lovastatin]) 40 mg PO BEDTIME [facility] Ondansetron HCl (Zofran) 4 mg IVPUSH Q4H PRN PRN Reason: Nausea/Vomiting Last Admin: 07/29/19 09:43 Dose: 4 mg Sertraline HCl (Zoloft) 100 mg PO DAILY [facility] Last Admin: 07/29/19 09:10 Dose: 100 mg Discontinued Medications Carbidopa/Levodopa (Sinemet Cr 50-200 Mg) 1.5 tab PO BEDTIME [facility] Diphenhydramine HCl (Benadryl) 25 mg IVPUSH ONETIME ONE Stop: 07/29/19 11:33 Last Admin: 07/29/19 12:35 Dose: Not Given Gabapentin (Neurontin) 300 mg PO ONETIME ONE Stop: 07/28/19 22:35 Last Admin: 07/28/19 23:09 Dose: 300 mg Sodium Chloride (Normal Saline) 1,000 mls @ 999 mls/hr IV .Bolus ONE Stop: 07/28/19 17:33 Last Admin: 07/28/19 16:46 Dose: 999 mls/hr Pantoprazole Sodium 40 mg/ (Sodium Chloride) 10 mls @ 300 mls/hr IV NOW ONE Stop: 07/28/19 18:51 Last Admin: 07/28/19 19:11 Dose: 300 mls/hr Magnesium Sulfate 4 gm/ Premix 100 mls @ 50 mls/hr IV ONETIME ONE Stop: 07/28/19 23:00 Last Admin: 07/28/19 23:08 Dose: 50 mls/hr Pantoprazole Sodium 40 mg/ (Sodium Chloride) 10 mls @ 300 mls/hr IV DAILY JAYMIE Last Admin: 07/29/19 09:10 Dose: 300 mls/hr Iopamidol (Isovue Multipack-370 (76%)) 62 ml IVPUSH ONETIME ONE Stop: 07/28/19 18:28 Last Admin: 07/28/19 18:27 Dose: 62 ml Morphine Sulfate (Morphine) 4 mg IVPUSH ONETIME ONE Stop: 07/28/19 16:42 Last Admin: 07/28/19 16:46 Dose: 4 mg Ondansetron HCl (Zofran) 4 mg IVPUSH ONETIME ONE Stop: 07/28/19 16:31 Last Admin: 07/28/19 16:46 Dose: 4 mg - Exam General: Alert, Oriented, Cooperative, Mild Distress Lungs: Clear to Auscultation, Normal Respiratory Effort Cardiovascular: Regular Rate, Regular Rhythm GI/Abdominal Exam: Normal Bowel Sounds, Soft, Non-Tender, No Distention Extremities: Normal Inspection, No Pedal Edema Sepsis Event Note - Evaluation Sepsis Screening Result: No Definite Risk - Focused Exam Vital Signs: Vital Signs Temp Pulse Resp BP BP Pulse Ox 07/29/19 09:10 124/82 07/29/19 08:00 97.4 F 62 16 161/82 H 98 07/29/19 04:00 97.6 F 60 16 118/64 95 Date Exam was Performed: 07/29/19 Time Exam was Performed: 12:50 - Problem List Review Problem List Initiated/Reviewed/Updated: Yes - My Orders Last 24 Hours: My Active Orders 07/29/19 11:23 Ketorolac [Toradol] 30 mg IVPUSH Q6H PRN 07/29/19 11:31 Metoclopramide [Reglan] 5 mg IV QID PRN 07/29/19 Dinner NPO Now [Nothing per Oral Now Diet] [DIET] - Plan Plan:: Assessment and Plan: 1. Epigastric pain, nausea and vomiting likely secondary to gastritis: - Will make patient NPO this morning. Continue IV LR 125 cc/hr. CT abd/pelvis showed no acute findings but did show several non-obstructing stones in right kidney. Will start IV reglan 5 mg qid prn. Recommend EGD as outpatient. Will continue to monitor abdominal pain. - Discontinue IV PPI as patient reported abdominal pain shortly after being administered this medication. 2. Diabetes mellitus type 2: - SSI, accucheks TIDAC. 3. Past medical history of COPD, [place] s/p CABG, HTN, hyperlipidemia, depression and anxiety: - Resume home medications. 4. DVT prophylaxis: SCD's.
[2019-07-29] MEDS: Lactated Ringers 1,000 ML IV SCH (13:22)
--- NOTE | 2019-07-29 18:58 | PCM.DCSUM1 ---
Discharge Summary - Hospital Course Free Text/Narrative:: 63-year-old female admitted for epigastric pain, nausea and vomiting. She has a PMH of COPD, MS s/p CABG, HTN, hyperlipidemia, depression and anxiety. CT abd/ pelvis showed no acute findings but did show several non-obstructing stones in her right kidney. CBC and CMP were unremarkable. UA was only notable for occult blood. Patient was made NPO, started on IV fluids and started on IV reglan 5 mg QID prn. Patient's abdominal pain improved on day of discharge. She was able to tolerate clear liquids on day of discharge and reported no nausea or vomiting. Advised to follow-up with PCP Marguerite Bravo. Patient would benefit from EGD as an outpatient. - Discharge Data Discharge Date: 07/29/19 Discharge Disposition: Home, Self-Care 01 Condition: Stable - Referral to Home Health Primary Care Physician: Marguerite Cruz [employer] - Patient Instructions Diet: Clear Liquid Diet Diet, Other: Advance diet slowly as tolerated Activity: As Tolerated Notify Provider of: Fever, Increased Pain, Swelling and Redness, Drainage, Nausea and/or Vomiting - Discharge Plan *PRESCRIPTION DRUG MONITORING PROGRAM REVIEWED*: Not Applicable *COPY OF PRESCRIPTION DRUG MONITORING REPORT IN PATIENT ELIO: Not Applicable Prescriptions/Med Rec: Metoclopramide HCl [Reglan] 5 mg PO QID PRN 14 Days #56 tablet PRN Reason: Abdominal Pain Home Medications: Home Meds Aspirin [Halfprin] 81 mg PO DAILY 07/28/19 [History] Carbidopa/Levodopa [Carbidopa-Levo ER 50-200] 1.5 tab PO BEDTIME 07/28/19 [ History] Gabapentin [Neurontin] 300 mg PO ASDIRECTED 07/28/19 [History] Lisinopril [Zestril] 5 mg PO DAILY 07/28/19 [History] Lovastatin 40 mg PO BEDTIME 07/28/19 [History] Sertraline HCl [Zoloft] 100 mg PO DAILY 07/28/19 [History] buPROPion HCl [Wellbutrin Xl] 150 mg PO DAILY 07/28/19 [History] metFORMIN HCl [Metformin HCl] 1,000 mg PO BIDMEALS 07/28/19 [History] Metoclopramide HCl [Reglan] 5 mg PO QID PRN 14 Days #56 tablet 07/29/19 [Rx] Oxygen Therapy Mode: Room Air Forms: ED Department Discharge Referrals: Marguerite Cruz NP [Primary Care Provider] - - Discharge Summary/Plan Comment DC Time >30 min.: No - Patient Data Vitals - Most Recent: Last Vital Signs Temp 98.8 F 07/29/19 16:46 Pulse 60 07/29/19 16:46 Resp 14 07/29/19 16:46 BP 155/80 H 07/29/19 16:46 Pulse Ox 93 L 07/29/19 16:46 Weight - Most Recent: 115 lb I&O - Last 24 hours: Intake & Output 07/29/19 07/29/19 07/29/19 06:59 14:59 22:59 Intake Total 620 2033 Output Total 1200 Balance 620 833 Lab Results - Last 24 hrs: Laboratory Results - last 24 hr 07/28/19 07/28/19 07/29/19 Range/Units 19:03 19:03 00:50 WBC (4.0-11.0) K/uL RBC (4.30-5.90) M/uL Hgb (12.0-16.0) g/dL Hct (36.0-46.0) % MCV (80.0-98.0) fL MCH (27.0-32.0) pg MCHC (31.0-37.0) g/dL RDW Std Deviation (28.0-62.0) fl RDW Coeff of Aj (11.0-15.0) % Plt Count (150-400) K/uL MPV (7.40-12.00) fL Neut % (Auto) (48.0-80.0) % Lymph % (Auto) (16.0-40.0) % Sheridan % (Auto) (0.0-15.0) % Eos % (Auto) (0.0-7.0) % Baso % (Auto) (0.0-1.5) % Neut # (Auto) (1.4-5.7) K/uL Lymph # (Auto) (0.6-2.4) K/uL Sheridan # (Auto) (0.0-0.8) K/uL Eos # (Auto) (0.0-0.7) K/uL Baso # (Auto) (0.0-0.1) K/uL Nucleated RBC % /100WBC Nucleated RBCs # K/uL Lactate 1.1 (0.20-2.00) mmol/L Sodium (136-145) mmol/L Potassium (3.5-5.1) mmol/L Chloride (98-107) mmol/L Carbon Dioxide (21.0-32.0) mmol/L BUN (7.0-18.0) mg/dL Creatinine (0.6-1.0) mg/dL Est Cr Clr Drug Dosing mL/min Estimated GFR (MDRD) ml/min Glucose (74-106) mg/dL POC Glucose (60-110) mg/dL Hemoglobin A1c 6.3 H (4.5-6.2) % Calcium (8.5-10.1) mg/dL Phosphorus (2.6-4.7) mg/dL Magnesium (1.8-2.4) mg/dL Troponin I < 0.050 (0.000-0.056) ng/mL 07/29/19 07/29/19 07/29/19 Range/Units 06:30 06:30 07:14 WBC 9.48 (4.0-11.0) K/uL RBC 4.26 L (4.30-5.90) M/uL Hgb 12.2 (12.0-16.0) g/dL Hct 37.2 (36.0-46.0) % MCV 87.3 (80.0-98.0) fL MCH 28.6 (27.0-32.0) pg MCHC 32.8 (31.0-37.0) g/dL RDW Std Deviation 48.3 (28.0-62.0) fl RDW Coeff of Aj 15 (11.0-15.0) % Plt Count 251 (150-400) K/uL MPV 9.20 (7.40-12.00) fL Neut % (Auto) 63.8 (48.0-80.0) % Lymph % (Auto) 27.7 (16.0-40.0) % Sheridan % (Auto) 8.2 (0.0-15.0) % Eos % (Auto) 0.2 (0.0-7.0) % Baso % (Auto) 0.1 (0.0-1.5) % Neut # (Auto) 6.0 H (1.4-5.7) K/uL Lymph # (Auto) 2.6 H (0.6-2.4) K/uL Sheridan # (Auto) 0.8 (0.0-0.8) K/uL Eos # (Auto) 0.0 (0.0-0.7) K/uL Baso # (Auto) 0.0 (0.0-0.1) K/uL Nucleated RBC % 0.0 /100WBC Nucleated RBCs # 0 K/uL Lactate (0.20-2.00) mmol/L Sodium 140 (136-145) mmol/L Potassium 3.6 (3.5-5.1) mmol/L Chloride 104 (98-107) mmol/L Carbon Dioxide 28.9 (21.0-32.0) mmol/L BUN 14 (7.0-18.0) mg/dL Creatinine 0.7 (0.6-1.0) mg/dL Est Cr Clr Drug Dosing 60.46 mL/min Estimated GFR (MDRD) > 60.0 ml/min Glucose 96 (74-106) mg/dL POC Glucose 89 (60-110) mg/dL Hemoglobin A1c (4.5-6.2) % Calcium 8.7 (8.5-10.1) mg/dL Phosphorus 3.6 (2.6-4.7) mg/dL Magnesium 3.1 H (1.8-2.4) mg/dL Troponin I (0.000-0.056) ng/mL 07/29/19 07/29/19 07/29/19 Range/Units 11:49 14:27 17:26 WBC (4.0-11.0) K/uL RBC (4.30-5.90) M/uL Hgb (12.0-16.0) g/dL Hct (36.0-46.0) % MCV (80.0-98.0) fL MCH (27.0-32.0) pg MCHC (31.0-37.0) g/dL RDW Std Deviation (28.0-62.0) fl RDW Coeff of Aj (11.0-15.0) % Plt Count (150-400) K/uL MPV (7.40-12.00) fL Neut % (Auto) (48.0-80.0) % Lymph % (Auto) (16.0-40.0) % Sheridan % (Auto) (0.0-15.0) % Eos % (Auto) (0.0-7.0) % Baso % (Auto) (0.0-1.5) % Neut # (Auto) (1.4-5.7) K/uL Lymph # (Auto) (0.6-2.4) K/uL Sheridan # (Auto) (0.0-0.8) K/uL Eos # (Auto) (0.0-0.7) K/uL Baso # (Auto) (0.0-0.1) K/uL Nucleated RBC % /100WBC Nucleated RBCs # K/uL Lactate (0.20-2.00) mmol/L Sodium (136-145) mmol/L Potassium (3.5-5.1) mmol/L Chloride (98-107) mmol/L Carbon Dioxide (21.0-32.0) mmol/L BUN (7.0-18.0) mg/dL Creatinine (0.6-1.0) mg/dL Est Cr Clr Drug Dosing mL/min Estimated GFR (MDRD) ml/min Glucose (74-106) mg/dL POC Glucose 164 H 107 (60-110) mg/dL Hemoglobin A1c (4.5-6.2) % Calcium (8.5-10.1) mg/dL Phosphorus (2.6-4.7) mg/dL Magnesium (1.8-2.4) mg/dL Troponin I < 0.050 (0.000-0.056) ng/mL Med Orders - Current: Current Medications Albuterol/Ipratropium (Duoneb 3.0-0.5 Mg/3 Ml) 3 ml NEB Q4HRRT PRN PRN Reason: Shortness Of Breath/wheezing Aspirin (Halfprin) 81 mg PO DAILY [facility] Last Admin: 07/29/19 09:10 Dose: 81 mg Bupropion HCl (Wellbutrin Xl) 150 mg PO DAILY [facility] Last Admin: 07/29/19 09:10 Dose: 150 mg Carbidopa/Levodopa (Sinemet Cr 50-200 Mg) 1.5 tab PO BEDTIME [facility] Last Admin: 07/28/19 23:37 Dose: 1.5 tab Gabapentin (Neurontin) 300 mg PO ASDIRECTED [facility] Lactated Ringer's (Ringers, Lactated) 1,000 mls @ 125 mls/hr IV ASDIRECTED [facility] Last Admin: 07/29/19 13:22 Dose: 125 mls/hr Insulin Aspart (Novolog) 0 unit SUBCUT TIDAC [facility]; Protocol Last Admin: 07/29/19 17:32 Dose: Not Given Ketorolac Tromethamine (Toradol) 30 mg IVPUSH Q6H PRN PRN Reason: Pain Lisinopril (Prinivil) 5 mg PO DAILY [facility] Last Admin: 07/29/19 09:10 Dose: 5 mg Metoclopramide HCl (Reglan) 5 mg IV QID PRN PRN Reason: Nausea Last Admin: 07/29/19 12:17 Dose: 5 mg Morphine Sulfate (Morphine) 2 mg IVPUSH Q4H PRN PRN Reason: Pain (severe 7-10) Stop: 07/29/19 20:59 Last Admin: 07/29/19 09:52 Dose: 2 mg Non-Formulary Medication (Lovastatin [Lovastatin]) 40 mg PO BEDTIME [facility] Ondansetron HCl (Zofran) 4 mg IVPUSH Q4H PRN PRN Reason: Nausea/Vomiting Last Admin: 07/29/19 09:43 Dose: 4 mg Sertraline HCl (Zoloft) 100 mg PO DAILY [facility] Last Admin: 07/29/19 09:10 Dose: 100 mg Discontinued Medications Carbidopa/Levodopa (Sinemet Cr 50-200 Mg) 1.5 tab PO BEDTIME [facility] Diphenhydramine HCl (Benadryl) 25 mg IVPUSH ONETIME ONE Stop: 07/29/19 11:33 Last Admin: 07/29/19 12:35 Dose: Not Given Gabapentin (Neurontin) 300 mg PO ONETIME ONE Stop: 07/28/19 22:35 Last Admin: 07/28/19 23:09 Dose: 300 mg Sodium Chloride (Normal Saline) 1,000 mls @ 999 mls/hr IV .Bolus ONE Stop: 07/28/19 17:33 Last Admin: 07/28/19 16:46 Dose: 999 mls/hr Sodium Chloride (Normal Saline) 500 mls @ 500 mls/hr IV .BOLUS JAYMIE Last Admin: 07/28/19 19:09 Dose: 500 mls/hr Pantoprazole Sodium 40 mg/ (Sodium Chloride) 10 mls @ 300 mls/hr IV NOW ONE Stop: 07/28/19 18:51 Last Admin: 07/28/19 19:11 Dose: 300 mls/hr Magnesium Sulfate 4 gm/ Premix 100 mls @ 50 mls/hr IV ONETIME ONE Stop: 07/28/19 23:00 Last Admin: 07/28/19 23:08 Dose: 50 mls/hr Pantoprazole Sodium 40 mg/ (Sodium Chloride) 10 mls @ 300 mls/hr IV DAILY [facility] Last Admin: 07/29/19 09:10 Dose: 300 mls/hr Iopamidol (Isovue Multipack-370 (76%)) 62 ml IVPUSH ONETIME ONE Stop: 07/28/19 18:28 Last Admin: 07/28/19 18:27 Dose: 62 ml Morphine Sulfate (Morphine) 4 mg IVPUSH ONETIME ONE Stop: 07/28/19 16:42 Last Admin: 07/28/19 16:46 Dose: 4 mg Ondansetron HCl (Zofran) 4 mg IVPUSH ONETIME ONE Stop: 07/28/19 16:31 Last Admin: 07/28/19 16:46 Dose: 4 mg
[2019-07-29] MEDS ORDERED: Carbidopa/Levodopa 50-200 MG Tab.ER PO SCH (21:00)
[2019-07-29] MEDS ORDERED: Non-Formulary Medication 1 Each (Lovastatin [Lovastatin] 40 MG) PO SCH (21:00)
== END 2019-07-29 19:41 | disposition home or self-care (01) ==
LOC: MW.ED 16:18 → MW.MS 20:04
PROVIDERS: ADMIT Student in an Organized Health Care Education/Training Program; ATTEND Student in an Organized Health Care Education/Training Program
DX: R10.13 Epigastric pain (principal); E86.0 Dehydration; R11.2 Nausea with vomiting, unspecified; J44.9 Chronic obstructive pulmonary disease, unspecified; I10 Essential (primary) hypertension; E78.5 Hyperlipidemia, unspecified; E11.9 Type 2 diabetes mellitus without complications; F17.210 Nicotine dependence, cigarettes, uncomplicated; F32.9 Major depressive disorder, single episode, unspecified; F41.9 Anxiety disorder, unspecified; I25.2 Old myocardial infarction; N20.0 Calculus of kidney; Z95.1 Presence of aortocoronary bypass graft; Z79.84 Long term (current) use of oral hypoglycemic drugs; Z91.048 Other nonmedicinal substance allergy status; Z79.82 Long term (current) use of aspirin; Z79.899 Other long term (current) drug therapy; Z91.09 Other allergy status, other than to drugs and biological substances
CPT/HCPCS: 36415; 74177; 80048; 80053; 81001; 82962; 83036; 83605; 83690; 83735; 84100; 84484; 85025; 93005; 96361; 96374; 96375; 99285; A9270; C9113; J2270; J2405; J2765; J3475; J7030; J7040; J7050; J7120; Q9967; 96365; 96376; 99284; G0378

== ENCOUNTER 2020-07-01 08:40 | Emergency (ER) | payer MEDICARE, OTHER ==
[2020-07-01] MEDS ORDERED: Ketorolac 30 MG/ML SDV IVPUSH ONE (09:01)
--- NOTE | 2020-07-01 09:18 | EDM.PDOC ---
ED HPI GENERAL MEDICAL PROBLEM - General Chief Complaint: Abdominal Pain Stated Complaint: ABD PAIN Time Seen by Provider: 07/01/20 09:13 Source of Information: Reports: Patient - History of Present Illness INITIAL COMMENTS - FREE TEXT/NARRATIVE: Patient is a 64-year-old female who presents today for abdominal pain. Patient states the pain is in epigastric area is been there for 3 days. Patient has s imilar pain last year and no cause of shoulder pain except some nonobstructing stones in the right kidney. Patient states that she has had nausea vomiting but is able to tolerate some p.o. Patient does take prescriptive marijuana has been taking it and has helped the pain at times. Patient denies any fevers chills or shortness of breath. Abdominal Pain Score (Numeric/FACES): 10 - Related Data Allergies Allergy/AdvReac Type Severity Reaction Status Date / Time nickel Allergy Rash Verified 07/01/20 08:56 super glue Allergy Rash Uncoded 07/01/20 08:56 Home Meds: Home Meds Aspirin [Halfprin] 81 mg PO DAILY 07/28/19 [History] Carbidopa/Levodopa [Carbidopa-Levo ER 50-200] 1.5 tab PO BEDTIME 07/28/19 [History] Gabapentin [Neurontin] 300 mg PO ASDIRECTED 07/28/19 [History] Lovastatin 40 mg PO BEDTIME 07/28/19 [History] Sertraline HCl [Zoloft] 100 mg PO DAILY 07/28/19 [History] buPROPion HCL [Wellbutrin Xl] 150 mg PO DAILY 07/28/19 [History] lisinopriL [Zestril] 10 mg PO DAILY 07/28/19 [History] metFORMIN HCl [Metformin HCl] 1,000 mg PO BIDMEALS 07/28/19 [History] Metoclopramide HCl [Reglan] 5 mg PO QID PRN 14 Days #56 tablet 07/29/19 [Rx] Past Medical History Cardiovascular History: Reports: Bypass Musculoskeletal History: Reports: Arthritis Psychiatric History: Reports: Anxiety, Depression Endocrine/Metabolic History: Reports: Diabetes, Type II - Infectious Disease History Infectious Disease History: Reports: None - Past Surgical History GI Surgical History: Reports: Other (See Below) Other GI Surgeries/Procedures: Hernia Repair Musculoskeletal Surgical History: Reports: Knee Replacement Other Musculoskeletal Surgeries/Procedures:: Left Knee Replacement Social & Family History - Family History Family Medical History: No Pertinent Family History - Caffeine Use Caffeine Use: Reports: Coffee - Recreational Drug Use Recreational Drug Use: No ED ROS GENERAL - Review of Systems Review Of Systems: See Below Constitutional: Reports: No Symptoms HEENT: Reports: No Symptoms Respiratory: Reports: No Symptoms Cardiovascular: Reports: No Symptoms Endocrine: Reports: No Symptoms GI/Abdominal: Reports: Abdominal Pain : Reports: No Symptoms Musculoskeletal: Reports: No Symptoms Skin: Reports: No Symptoms Neurological: Reports: No Symptoms Psychiatric: Reports: No Symptoms Hematologic/Lymphatic: Reports: No Symptoms Immunologic: Reports: No Symptoms ED EXAM, GI/ABD - Physical Exam Exam: See Below Exam Limited By: No Limitations General Appearance: Alert, Mild Distress Respiratory/Chest: No Respiratory Distress, Lungs Clear, Normal Breath Sounds Cardiovascular: Normal Peripheral Pulses, Regular Rate, Rhythm GI/Abdominal Exam: Normal Bowel Sounds, Soft, Tender Extremities: Normal Inspection Neurological: Alert, Oriented, Normal Cognition, Normal Gait Course - Vital Signs Last Recorded V/S: Last Vital Signs Temp 95.9 F L 07/01/20 08:56 Pulse 86 07/01/20 10:53 Resp 18 07/01/20 10:53 BP 183/93 H 07/01/20 10:53 Pulse Ox 98 07/01/20 10:53 - Orders/Labs/Meds Labs: Laboratory Tests 07/01/20 07/01/20 07/01/20 Range/Units 08:53 08:53 08:55 WBC 12.46 H (4.0-11.0) K/uL RBC 5.15 (4.30-5.90) M/uL Hgb 16.6 H (12.0-16.0) g/dL Hct 47.2 H (36.0-46.0) % MCV 91.7 (80.0-98.0) fL MCH 32.2 H (27.0-32.0) pg MCHC 35.2 (31.0-37.0) g/dL RDW Std Deviation 45.7 (28.0-62.0) fl RDW Coeff of Aj 14 (11.0-15.0) % Plt Count 306 (150-400) K/uL MPV 9.60 (7.40-12.00) fL Neut % (Auto) 79.1 (48.0-80.0) % Lymph % (Auto) 14.4 L (16.0-40.0) % Garrett % (Auto) 5.5 (0.0-15.0) % Eos % (Auto) 0.8 (0.0-7.0) % Baso % (Auto) 0.2 (0.0-1.5) % Neut # (Auto) 9.9 H (1.4-5.7) K/uL Lymph # (Auto) 1.8 (0.6-2.4) K/uL Garrett # (Auto) 0.7 (0.0-0.8) K/uL Eos # (Auto) 0.1 (0.0-0.7) K/uL Baso # (Auto) 0.0 (0.0-0.1) K/uL Nucleated RBC % 0.0 /100WBC Nucleated RBCs # 0 K/uL Sodium (136-145) mmol/L Potassium (3.5-5.1) mmol/L Chloride (98-107) mmol/L Carbon Dioxide (21.0-32.0) mmol/L BUN (7.0-18.0) mg/dL Creatinine (0.6-1.0) mg/dL Est Cr Clr Drug Dosing mL/min Estimated GFR (MDRD) ml/min Glucose (74-106) mg/dL Calcium (8.5-10.1) mg/dL Phosphorus (2.6-4.7) mg/dL Magnesium (1.8-2.4) mg/dL Total Bilirubin (0.2-1.0) mg/dL AST (15-37) IU/L ALT (14-63) IU/L Alkaline Phosphatase (46-116) U/L Creatine Kinase (26-308) U/L Troponin I (0.000-0.056) ng/mL Total Protein (6.4-8.2) g/dL Albumin (3.4-5.0) g/dL Globulin (2.6-4.0) g/dL Albumin/Globulin Ratio (0.9-1.6) Lipase (73-393) U/L Urine Color YELLOW Urine Appearance CLEAR Urine pH 6.0 (5.0-8.0) Ur Specific Embudo >= 1.030 (1.001-1.035) Urine Protein 100 H (NEGATIVE) mg/dL Urine Glucose (UA) 100 H (NEGATIVE) mg/dL Urine Ketones >=80 (NEGATIVE) mg/dL Urine Occult Blood SMALL H (NEGATIVE) Urine Nitrite NEGATIVE (NEGATIVE) Urine Bilirubin SMALL H (NEGATIVE) Urine Ictotest NEGATIVE Urine Urobilinogen 0.2 (<2.0) EU/dL Ur Leukocyte Esterase NEGATIVE (NEGATIVE) Urine RBC 5-10 (0-2/HPF) Urine WBC 0-2 (0-5/HPF) Ur Epithelial Cells MODERATE (NONE-FEW) Urine Bacteria FEW (NEGATIVE) Urine Yeast OCCASIONAL Urine Opiates Screen NEGATIVE (NEGATIVE) Ur Oxycodone Screen NEGATIVE (NEGATIVE) Urine Methadone Screen NEGATIVE (NEGATIVE) Ur Barbiturates Screen NEGATIVE (NEGATIVE) Ur Phencyclidine Scrn NEGATIVE (NEGATIVE) Ur Amphetamine Screen NEGATIVE (NEGATIVE) U Methamphetamines Scrn NEGATIVE (NEGATIVE) U Benzodiazepines Scrn NEGATIVE (NEGATIVE) U Cocaine Metab Screen NEGATIVE (NEGATIVE) U Marijuana (THC) Screen POSITIVE (NEGATIVE) Ethyl Alcohol mg/dL 07/01/20 Range/Units 08:55 WBC (4.0-11.0) K/uL RBC (4.30-5.90) M/uL Hgb (12.0-16.0) g/dL Hct (36.0-46.0) % MCV (80.0-98.0) fL MCH (27.0-32.0) pg MCHC (31.0-37.0) g/dL RDW Std Deviation (28.0-62.0) fl RDW Coeff of Aj (11.0-15.0) % Plt Count (150-400) K/uL MPV (7.40-12.00) fL Neut % (Auto) (48.0-80.0) % Lymph % (Auto) (16.0-40.0) % Garrett % (Auto) (0.0-15.0) % Eos % (Auto) (0.0-7.0) % Baso % (Auto) (0.0-1.5) % Neut # (Auto) (1.4-5.7) K/uL Lymph # (Auto) (0.6-2.4) K/uL Garrett # (Auto) (0.0-0.8) K/uL Eos # (Auto) (0.0-0.7) K/uL Baso # (Auto) (0.0-0.1) K/uL Nucleated RBC % /100WBC Nucleated RBCs # K/uL Sodium 136 (136-145) mmol/L Potassium 4.2 (3.5-5.1) mmol/L Chloride 98 (98-107) mmol/L Carbon Dioxide 24.3 (21.0-32.0) mmol/L BUN 15 (7.0-18.0) mg/dL Creatinine 1.0 (0.6-1.0) mg/dL Est Cr Clr Drug Dosing 39.75 mL/min Estimated GFR (MDRD) 55.5 ml/min Glucose 224 H (74-106) mg/dL Calcium 9.8 (8.5-10.1) mg/dL Phosphorus 2.2 L (2.6-4.7) mg/dL Magnesium 1.6 L (1.8-2.4) mg/dL Total Bilirubin 0.6 (0.2-1.0) mg/dL AST 17 (15-37) IU/L ALT 10 L (14-63) IU/L Alkaline Phosphatase 105 (46-116) U/L Creatine Kinase 152 (26-308) U/L Troponin I < 0.050 (0.000-0.056) ng/mL Total Protein 8.7 H (6.4-8.2) g/dL Albumin 4.3 (3.4-5.0) g/dL Globulin 4.4 H (2.6-4.0) g/dL Albumin/Globulin Ratio 1.0 (0.9-1.6) Lipase 169 (73-393) U/L Urine Color Urine Appearance Urine pH (5.0-8.0) Ur Specific Embudo (1.001-1.035) Urine Protein (NEGATIVE) mg/dL Urine Glucose (UA) (NEGATIVE) mg/dL Urine Ketones (NEGATIVE) mg/dL Urine Occult Blood (NEGATIVE) Urine Nitrite (NEGATIVE) Urine Bilirubin (NEGATIVE) Urine Ictotest Urine Urobilinogen (<2.0) EU/dL Ur Leukocyte Esterase (NEGATIVE) Urine RBC (0-2/HPF) Urine WBC (0-5/HPF) Ur Epithelial Cells (NONE-FEW) Urine Bacteria (NEGATIVE) Urine Yeast Urine Opiates Screen (NEGATIVE) Ur Oxycodone Screen (NEGATIVE) Urine Methadone Screen (NEGATIVE) Ur Barbiturates Screen (NEGATIVE) Ur Phencyclidine Scrn (NEGATIVE) Ur Amphetamine Screen (NEGATIVE) U Methamphetamines Scrn (NEGATIVE) U Benzodiazepines Scrn (NEGATIVE) U Cocaine Metab Screen (NEGATIVE) U Marijuana (THC) Screen (NEGATIVE) Ethyl Alcohol < 3.0 mg/dL Meds: Medications Discontinued Medications Generic Name Dose Route Start Last Admin Trade Name Freq PRN Reason Stop Dose Admin Al Hydroxide/Mg Hydroxide 15 0 ml 07/01/20 11:23 ml/ Lidocaine HCl 5 ml PO 07/01/20 11:24 ONETIME ONE Diphenhydramine HCl 25 mg 07/01/20 09:28 07/01/20 09:37 Benadryl IVPUSH 07/01/20 09:29 Not Given ONETIME ONE Sodium Chloride 1,000 mls @ 1,000 mls/hr 07/01/20 10:14 07/01/20 10:27 Normal Saline IV 07/01/20 11:13 1,000 mls/hr .Bolus ONE Administration Iopamidol 75 ml 07/01/20 10:22 07/01/20 10:24 Isovue Multipack-370 (76%) IVPUSH 07/01/20 10:23 75 ml ONETIME STA Administration Ketorolac Tromethamine 30 mg 07/01/20 09:01 07/01/20 09:07 Toradol IVPUSH 07/01/20 09:02 30 mg ONETIME ONE Administration Morphine Sulfate 4 mg 07/01/20 10:16 07/01/20 10:27 Morphine IVPUSH 07/01/20 10:17 4 mg ONETIME ONE Administration - Re-Assessments/Exams Free Text/Narrative Re-Assessment/Exam: 07/01/20 11:37 CT returns pt has a possible peptic ulcer. Patient pain is been controlled and patient tolerating p.o. Patient will be discharged to follow-up with GI as outpatient. Departure - Departure Time of Disposition: 11:38 Disposition: Home, Self-Care 01 Condition: Good Clinical Impression: PUD (peptic ulcer disease) - Discharge Information *PRESCRIPTION DRUG MONITORING PROGRAM REVIEWED*: Not Applicable *COPY OF PRESCRIPTION DRUG MONITORING REPORT IN PATIENT ELIO: Not Applicable Instructions: Peptic Ulcer, [id number] Referrals: Marguerite Cruz NP [Nurse Practitioner] - Forms: ED Department Discharge Additional Instructions: The following information is given to patients seen in the emergency department who are being discharged to home. This information is to outline your options for follow-up care. We provide all patients seen in our emergency department with a follow-up referral. The need for follow-up, as well as the timing and circumstances, are variable depending upon the specifics of your emergency department visit. If you don't have a primary care physician on staff, we will provide you with a referral. We always advise you to contact your personal physician following an emergency department visit to inform them of the circumstance of the visit and for follow-up with them and/or the need for any referrals to a consulting specialist. The emergency department will also refer you to a specialist when appropriate. This referral assures that you have the opportunity for follow-up care with a specialist. All of these measure are taken in an effort to provide you with optimal care, which includes your follow-up. Under all circumstances we always encourage you to contact your private physician who remains a resource for coordinating your care. When calling for follow-up care, please make the office aware that this follow-up is from your recent emergency room visit. If for any reason you are refused follow-up, please contact the [facility] Emergency Department at and asked to speak to the emergency department charge nurse. Please follow up with your primary care physician. If you do not have a primary care physician, see below: [facility] [address] [place] [id number] [facility] [address] [place] [address] [facility] - General Surgery Professional Building [address], [address] [place] [address] Please follow-up with the solar technician as outpatient. Please try to take Maalox or Pepcid for your pain. You have any other concerning symptoms please return to the ED. Sepsis Event Note (ED) - Evaluation Sepsis Screening Result: Possible Sepsis Risk - Focused Exam Vital Signs: Vital Signs Temp Pulse Resp BP Pulse Ox 07/01/20 10:53 86 18 183/93 H 98 07/01/20 10:31 84 18 196/99 H 99 07/01/20 09:53 88 21 H 217/130 H 99 07/01/20 09:22 84 20 204/127 H 99 07/01/20 08:56 95.9 F L 91 22 H 195/132 H 97 - Assessment/Plan Plan: Patient is a 64-year-old female who presented today for abdominal pain. Patient has some tenderness diffusely in her abdomen. Patient has similar pains a year ago. Unclear cause of the pain unclear if is related to marijuana. Will obtain labs provide pain control and did CT scan of the abdomen pelvis.
[2020-07-01] MEDS ORDERED: diphenhydrAMINE 50 MG/ML SDV IVPUSH ONE (09:28)
[2020-07-01 09:31] LABS: BLOOD UREA NITROGEN,BUN 15 mg/dL (7.0-18.0); CARBON DIOXIDE,CO2 24.3 mmol/L (21.0-32.0); CHLORIDE,CL 98 mmol/L (98-107); GLUCOSE RANDOM 224 mg/dL (74-106); LIPASE 169 U/L (73-393); POTASSIUM,K 4.2 mmol/L (3.5-5.1); SODIUM,NA 136 mmol/L (136-145)
[2020-07-01] MEDS ORDERED: Sodium Chloride 0.9% 1,000 ML IV ONE (10:14)
[2020-07-01] MEDS ORDERED: Morphine 4 MG/ML Syringe IVPUSH ONE (10:16)
[2020-07-01] MEDS ORDERED: Iopamidol 755 MG/ML 500 ML Multipack Bottle IVPUSH STA (10:22)
--- NOTE | 2020-07-01 10:51 | CT ---
Indication: Epigastric abdominal pain, nausea and vomiting Technique: Volumetric multidetector CT images of the abdomen and pelvis were obtained after the administration of intravenous contrast. 75 cc Isovue 370 low osmolar intravenous contrast Comparison: CT abdomen and pelvis July 28, 2019 Findings: There is minimal dependent basilar atelectasis. The liver demonstrates mild hepatomegaly and hepatic steatosis. The portal vein is patent. The gallbladder is unremarkable without evidence of radiopaque calculus. There is no significant common biliary ductal dilatation or abrupt cut off. The spleen is normal in enhancement and size. There is questionable mild thickening versus nondistention of the gastric antrum which can be seen in the setting of peptic ulcer disease. Otherwise, the stomach is grossly unremarkable. There are coarse calcifications seen within the tail and mid body of the pancreas likely representing sequela of pancreatitis. Mild prominence of the main pancreatic duct is noted. There is a somewhat bulky appearing left adrenal gland, otherwise is the adrenal glands are unremarkable. The kidneys demonstrate preserved corticomedullary differentiation without evidence of obstructive uropathy. There is moderate stool seen throughout the colon with colonic diverticulosis without evidence of diverticulitis. The appendix is unremarkable. There is no significant mesenteric, retroperitoneal, or pelvic sidewall lymph nodes. The aorta is nonaneurysmal. There is no significant atherosclerotic disease appreciated. There is prior hysterectomy. Otherwise, the pelvic viscera are grossly within normal limits. There is no free fluid or free air. There is demonstration of a small fat containing umbilical hernia. The lumbar vertebral body heights are grossly maintained with mild multi-level degenerative disc disease. There is a large calcified disc extrusion appreciated at the T11-12 level incidentally appreciated, increased from previous Impression: Questionable mild thickening versus nondistention of the gastric antrum which can be seen in the setting of peptic ulcer disease. Coarse calcifications seen within the pancreas likely representing sequela of prior pancreatitis. Otherwise the pancreas is preserved in attenuation. Incidental note made of progression of severe degenerative disc disease at the T11-12 level with a large calcified disc extrusion. Stable somewhat bulky appearing left adrenal gland. Colonic diverticulosis without evidence of diverticulitis. Please note that all CT scans at this facility use dose modulation, iterative reconstruction, and/or weight-based dosing when appropriate to reduce radiation dose to as low as reasonably achievable. Dictated by Manny Tinoco MD @ Jul 01 2020 10:30AM Signed by Dr. Manny Tinoco @ Jul 01 2020 10:50AM
[2020-07-01] MEDS ORDERED: Alum Hydrox/Mag Hydrox/Simeth 15 ML, Lidocaine 2% 5 ML PO ONE ×2 (11:23)
== END 2020-07-01 12:00 | disposition home or self-care (01) ==
LOC: MW.ED 08:40
DX: K27.9 Peptic ulcer, site unspecified, unspecified as acute or chronic, without hemorrhage or perforation (principal); M19.90 Unspecified osteoarthritis, unspecified site; E11.9 Type 2 diabetes mellitus without complications; Z91.048 Other nonmedicinal substance allergy status; Z79.82 Long term (current) use of aspirin; Z79.84 Long term (current) use of oral hypoglycemic drugs; Z79.899 Other long term (current) drug therapy
CPT/HCPCS: 36415; 74177; 80053; 80179; 80305; 81001; 82550; 83690; 83735; 84100; 84484; 85025; 96374; 99284; A9270; J1885; J2270; J7030; Q9967; 99283

== ENCOUNTER 2021-04-04 17:58 | Emergency (ER) | payer MEDICARE, OTHER ==
[2021-04-04] MEDS ORDERED: Sodium Chloride 0.9% 1,000 ML IV ONE (18:24)
[2021-04-04] MEDS ORDERED: Pantoprazole 40 MG/10 ML Syringe IVPUSH ONE (18:24)
[2021-04-04] MEDS ORDERED: Ondansetron 4 MG/2 ML SDV IVPUSH ONE (18:24)
[2021-04-04] MEDS ORDERED: Morphine 4 MG/ML VIAL IVPUSH ONE (18:24)
[2021-04-04] MEDS ORDERED: Alum Hydro/Mag Hydro/Simeth XS 15 ML, Lidocaine 2% 5 ML PO ONE ×2 (18:25)
--- NOTE | 2021-04-04 18:27 | EDM.PDOC ---
<Chito Acevedo - Last Filed: 04/04/21 18:27> ED HPI GENERAL MEDICAL PROBLEM - General Chief Complaint: Abdominal Pain Stated Complaint: VOMITING Time Seen by Provider: 04/04/21 18:18 Source of Information: Reports: Patient History Limitations: Reports: No Limitations - History of Present Illness INITIAL COMMENTS - FREE TEXT/NARRATIVE: 65-year-old female past medical history hiatal hernia status post repair, gastric ulcer, hypertension, diabetes, depression presents for nausea and vomiting x3 days associated with midepigastric abdominal pain. Patient notes numerous episodes of nonbloody emesis. She is having midepigastric abdominal pain that does radiate into her back. She notes this is similar to when she was diagnosed with a gastric ulcer roughly 6 months ago. She states that she took several medications for that. Since that she has had problems with her stomach ever since her hiatal hernia surgery repair. She denies fevers. She notes chr onic unchanged cough. She denies chest pain or shortness of breath. She denies dysuria or hematuria. abdomen Pain Score (Numeric/FACES): 9 - Related Data Allergies Allergy/AdvReac Type Severity Reaction Status Date / Time nickel Allergy Rash Verified 04/04/21 18:26 super glue Allergy Rash Uncoded 04/04/21 18:26 Home Meds: Home Meds Aspirin [Halfprin] 81 mg PO DAILY 07/28/19 [History] Carbidopa/Levodopa [Carbidopa-Levo ER 50-200] 1.5 tab PO BEDTIME 07/28/19 [History] Gabapentin [Neurontin] 300 mg PO ASDIRECTED 07/28/19 [History] Lovastatin 40 mg PO BEDTIME 07/28/19 [History] Sertraline HCl [Zoloft] 100 mg PO DAILY 07/28/19 [History] buPROPion HCL [Wellbutrin Xl] 150 mg PO DAILY 07/28/19 [History] lisinopriL [Zestril] 10 mg PO DAILY 07/28/19 [History] metFORMIN HCl [Metformin HCl] 1,000 mg PO BIDMEALS 07/28/19 [History] Metoclopramide HCl [Reglan] 5 mg PO QID PRN 14 Days #56 tablet 07/29/19 [Rx] Omeprazole Magnesium [Prilosec Otc] 20 mg PO DAILY #30 tablet. 04/04/21 [Rx] Past Medical History Cardiovascular History: Reports: Bypass Musculoskeletal History: Reports: Arthritis Psychiatric History: Reports: Anxiety, Depression Endocrine/Metabolic History: Reports: Diabetes, Type II - Infectious Disease History Infectious Disease History: Reports: None - Past Surgical History GI Surgical History: Reports: Other (See Below) Other GI Surgeries/Procedures: Hernia Repair Musculoskeletal Surgical History: Reports: Knee Replacement Other Musculoskeletal Surgeries/Procedures:: Left Knee Replacement Social & Family History - Family History Family Medical History: No Pertinent Family History - Caffeine Use Caffeine Use: Reports: Coffee ED ROS GENERAL - Review of Systems Review Of Systems: Comprehensive ROS is negative, except as noted in HPI. ED EXAM, GENERAL - Physical Exam Exam: See Below Exam Limited By: No Limitations General Appearance: Alert, WD/WN, No Apparent Distress, Other (Uncomfortable appearing, lying on her left side holding her abdomen) Ears: Hearing Grossly Normal Throat/Mouth: Normal Voice, No Airway Compromise Head: Atraumatic, Normocephalic Respiratory/Chest: No Respiratory Distress, Lungs Clear, Normal Breath Sounds, No Accessory Muscle Use Cardiovascular: Normal Peripheral Pulses, Regular Rate, Rhythm GI/Abdominal: Soft, Other (Midepigastric tenderness to palpation without guarding) Back Exam: No: CVA Tenderness (L), CVA Tenderness (R) Extremities: Normal Inspection Neurological: Alert, Normal Cognition Psychiatric: Normal Affect, Normal Mood Skin Exam: Warm, Dry, Intact, Normal Color Course - Re-Assessments/Exams Free Text/Narrative Re-Assessment/Exam: 04/04/21 18:28 We will get labs. Will get CT imaging of the abdomen and pelvis. Will treat symptomatically with IV fluid bolus, Zofran, Protonix, GI cocktail, morphine. Departure - Departure Disposition: Home, Self-Care 01 Clinical Impression: Abdominal pain, Gastritis - Discharge Information Prescriptions: Omeprazole Magnesium [Prilosec Otc] 20 mg PO DAILY #30 tablet. Referrals: PCP,None [Primary Care Provider] - Forms: ED Department Discharge Additional Instructions: For the acute problem restart Prilosec. Prescription sent to [place] pharmacy. They are open until 10 PM tonight. For the chronic problem weight loss have your doctor reevaluate need for additional specialty consultation or referral. [facility] - Primary Care [address] [place] [id number] [id number] The following information is given to patients seen in the emergency department who are being discharged to home. This information is to outline your options for follow-up care. We provide all patients seen in our emergency department with a follow-up referral. The need for follow-up, as well as the timing and circumstances, are variable depending upon the specifics of your emergency department visit. If you don't have a primary care physician on staff, we will provide you with a referral. We always advise you to contact your personal physician following an emergency department visit to inform them of the circumstance of the visit and for follow-up with them and/or the need for any referrals to a consulting specialist. The emergency department will also refer you to a specialist when appropriate. This referral assures that you have the opportunity for follow-up care with a specialist. All of these measure are taken in an effort to provide you with optimal care, which includes your follow-up. Under all circumstances we always encourage you to contact your private physician who remains a resource for coordinating your care. When calling for follow-up care, please make the office aware that this follow-up is from your recent emergency room visit. If for any reason you are refused follow-up, please contact the [facility] Emergency Department at and asked to speak to the emergency department charge nurse. Sepsis Event Note (ED) - Evaluation Sepsis Screening Result: No Definite Risk <Quincy Bedoya - Last Filed: 04/04/21 20:49> Course - Vital Signs Last Recorded V/S: Last Vital Signs Temp 36.5 C 04/04/21 18:20 Pulse 94 04/04/21 19:59 Resp 18 04/04/21 19:59 BP 117/76 04/04/21 19:59 Pulse Ox 99 04/04/21 19:59 - Orders/Labs/Meds Orders: Active Orders 24 hr Category Date Time Status Accu Check [Blood Glucose Check, Bedside] [RC] ONETIME Care 04/04/21 18:27 Active REFLEX LACTIC ACID YES OR NO [CHEM] Routine Lab 04/04/21 19:40 Received Saline Lock Insert [OM.PC] Stat Oth 04/04/21 18:24 Ordered Labs: Laboratory Tests 04/04/21 04/04/21 04/04/21 Range/Units 18:25 18:25 18:25 WBC 13.28 H (4.0-11.0) K/uL RBC 4.92 (4.30-5.90) M/uL Hgb 16.0 (12.0-16.0) g/dL Hct 44.7 (36.0-46.0) % MCV 90.9 (80.0-98.0) fL MCH 32.5 H (27.0-32.0) pg MCHC 35.8 (31.0-37.0) g/dL RDW Std Deviation 44.5 (28.0-62.0) fl RDW Coeff of Aj 13 (11.0-15.0) % Plt Count 262 (150-400) K/uL MPV 9.30 (7.40-12.00) fL Neut % (Auto) 89.8 H (48.0-80.0) % Lymph % (Auto) 5.8 L (16.0-40.0) % [place] % (Auto) 4.2 (0.0-15.0) % Eos % (Auto) 0.1 (0.0-7.0) % Baso % (Auto) 0.1 (0.0-1.5) % Neut # (Auto) 11.9 H (1.4-5.7) K/uL Lymph # (Auto) 0.8 (0.6-2.4) K/uL [place] # (Auto) 0.6 (0.0-0.8) K/uL Eos # (Auto) 0.0 (0.0-0.7) K/uL Baso # (Auto) 0.0 (0.0-0.1) K/uL Nucleated RBC % 0.0 /100WBC Nucleated RBCs # 0 K/uL VBG pH 7.46 H (7.31-7.41) VBG pCO2 40 L (41-51) mmHG VBG pO2 < 30 mmHG VBG HCO3 28 (23-28) mEq/L VBG Total CO2 25 (24-29) mmol/L VBG Base Excess 4.2 H (-2.0-3.0) Sodium 138 (136-145) mmol/L Potassium 3.4 L (3.5-5.1) mmol/L Chloride 98 (98-107) mmol/L Carbon Dioxide 28.4 (21.0-32.0) mmol/L BUN 14 (7.0-18.0) mg/dL Creatinine 0.9 (0.6-1.0) mg/dL Est Cr Clr Drug Dosing 40.83 mL/min Estimated GFR (MDRD) > 60.0 ml/min Glucose 237 H (74-106) mg/dL POC Glucose (70-99) mg/dL Lactic Acid (0.4-2.0) mmol/L Calcium 9.6 (8.5-10.1) mg/dL Magnesium 1.7 L (1.8-2.4) mg/dL Total Bilirubin 0.8 (0.2-1.0) mg/dL AST 24 (15-37) IU/L ALT 13 L (14-63) IU/L Alkaline Phosphatase 91 (46-116) U/L Total Protein 9.2 H (6.4-8.2) g/dL Albumin 4.8 (3.4-5.0) g/dL Globulin 4.4 H (2.6-4.0) g/dL Albumin/Globulin Ratio 1.1 (0.9-1.6) Lipase 88 (73-393) U/L Urine Color Urine Appearance Urine pH (5.0-8.0) Ur Specific [place] (1.001-1.035) Urine Protein (NEGATIVE) mg/dL Urine Glucose (UA) (NEGATIVE) mg/dL Urine Ketones (NEGATIVE) mg/dL Urine Occult Blood (NEGATIVE) Urine Nitrite (NEGATIVE) Urine Bilirubin (NEGATIVE) Urine Urobilinogen (<2.0) EU/dL Ur Leukocyte Esterase (NEGATIVE) Urine RBC (0-2/HPF) Urine WBC (0-5/HPF) Ur Epithelial Cells (NONE-FEW) Urine Bacteria (NEGATIVE) Ketones (NEG) 04/04/21 04/04/21 04/04/21 Range/Units 18:25 18:52 19:07 WBC (4.0-11.0) K/uL RBC (4.30-5.90) M/uL Hgb (12.0-16.0) g/dL Hct (36.0-46.0) % MCV (80.0-98.0) fL MCH (27.0-32.0) pg MCHC (31.0-37.0) g/dL RDW Std Deviation (28.0-62.0) fl RDW Coeff of Aj (11.0-15.0) % Plt Count (150-400) K/uL MPV (7.40-12.00) fL Neut % (Auto) (48.0-80.0) % Lymph % (Auto) (16.0-40.0) % [place] % (Auto) (0.0-15.0) % Eos % (Auto) (0.0-7.0) % Baso % (Auto) (0.0-1.5) % Neut # (Auto) (1.4-5.7) K/uL Lymph # (Auto) (0.6-2.4) K/uL [place] # (Auto) (0.0-0.8) K/uL Eos # (Auto) (0.0-0.7) K/uL Baso # (Auto) (0.0-0.1) K/uL Nucleated RBC % /100WBC Nucleated RBCs # K/uL VBG pH (7.31-7.41) VBG pCO2 (41-51) mmHG VBG pO2 mmHG VBG HCO3 (23-28) mEq/L VBG Total CO2 (24-29) mmol/L VBG Base Excess (-2.0-3.0) Sodium (136-145) mmol/L Potassium (3.5-5.1) mmol/L Chloride (98-107) mmol/L Carbon Dioxide (21.0-32.0) mmol/L BUN (7.0-18.0) mg/dL Creatinine (0.6-1.0) mg/dL Est Cr Clr Drug Dosing mL/min Estimated GFR (MDRD) ml/min Glucose (74-106) mg/dL POC Glucose 202 H (70-99) mg/dL Lactic Acid 2.8 H* (0.4-2.0) mmol/L Calcium (8.5-10.1) mg/dL Magnesium (1.8-2.4) mg/dL Total Bilirubin (0.2-1.0) mg/dL AST (15-37) IU/L ALT (14-63) IU/L Alkaline Phosphatase (46-116) U/L Total Protein (6.4-8.2) g/dL Albumin (3.4-5.0) g/dL Globulin (2.6-4.0) g/dL Albumin/Globulin Ratio (0.9-1.6) Lipase (73-393) U/L Urine Color Urine Appearance Urine pH (5.0-8.0) Ur Specific [place] (1.001-1.035) Urine Protein (NEGATIVE) mg/dL Urine Glucose (UA) (NEGATIVE) mg/dL Urine Ketones (NEGATIVE) mg/dL Urine Occult Blood (NEGATIVE) Urine Nitrite (NEGATIVE) Urine Bilirubin (NEGATIVE) Urine Urobilinogen (<2.0) EU/dL Ur Leukocyte Esterase (NEGATIVE) Urine RBC (0-2/HPF) Urine WBC (0-5/HPF) Ur Epithelial Cells (NONE-FEW) Urine Bacteria (NEGATIVE) Ketones NEGATIVE (NEG) 04/04/21 04/04/21 Range/Units 19:39 20:19 WBC (4.0-11.0) K/uL RBC (4.30-5.90) M/uL Hgb (12.0-16.0) g/dL Hct (36.0-46.0) % MCV (80.0-98.0) fL MCH (27.0-32.0) pg MCHC (31.0-37.0) g/dL RDW Std Deviation (28.0-62.0) fl RDW Coeff of Aj (11.0-15.0) % Plt Count (150-400) K/uL MPV (7.40-12.00) fL Neut % (Auto) (48.0-80.0) % Lymph % (Auto) (16.0-40.0) % [place] % (Auto) (0.0-15.0) % Eos % (Auto) (0.0-7.0) % Baso % (Auto) (0.0-1.5) % Neut # (Auto) (1.4-5.7) K/uL Lymph # (Auto) (0.6-2.4) K/uL [place] # (Auto) (0.0-0.8) K/uL Eos # (Auto) (0.0-0.7) K/uL Baso # (Auto) (0.0-0.1) K/uL Nucleated RBC % /100WBC Nucleated RBCs # K/uL VBG pH (7.31-7.41) VBG pCO2 (41-51) mmHG VBG pO2 mmHG VBG HCO3 (23-28) mEq/L VBG Total CO2 (24-29) mmol/L VBG Base Excess (-2.0-3.0) Sodium (136-145) mmol/L Potassium (3.5-5.1) mmol/L Chloride (98-107) mmol/L Carbon Dioxide (21.0-32.0) mmol/L BUN (7.0-18.0) mg/dL Creatinine (0.6-1.0) mg/dL Est Cr Clr Drug Dosing mL/min Estimated GFR (MDRD) ml/min Glucose (74-106) mg/dL POC Glucose (70-99) mg/dL Lactic Acid 2.7 H* (0.4-2.0) mmol/L Calcium (8.5-10.1) mg/dL Magnesium (1.8-2.4) mg/dL Total Bilirubin (0.2-1.0) mg/dL AST (15-37) IU/L ALT (14-63) IU/L Alkaline Phosphatase (46-116) U/L Total Protein (6.4-8.2) g/dL Albumin (3.4-5.0) g/dL Globulin (2.6-4.0) g/dL Albumin/Globulin Ratio (0.9-1.6) Lipase (73-393) U/L Urine Color YELLOW Urine Appearance HAZY Urine pH 7.5 (5.0-8.0) Ur Specific [place] 1.020 (1.001-1.035) Urine Protein 100 H (NEGATIVE) mg/dL Urine Glucose (UA) 100 H (NEGATIVE) mg/dL Urine Ketones TRACE H (NEGATIVE) mg/dL Urine Occult Blood SMALL H (NEGATIVE) Urine Nitrite NEGATIVE (NEGATIVE) Urine Bilirubin NEGATIVE (NEGATIVE) Urine Urobilinogen 0.2 (<2.0) EU/dL Ur Leukocyte Esterase NEGATIVE (NEGATIVE) Urine RBC 1-3 (0-2/HPF) Urine WBC 0-2 (0-5/HPF) Ur Epithelial Cells FEW (NONE-FEW) Urine Bacteria FEW (NEGATIVE) Ketones (NEG) Meds: Medications Discontinued Medications Generic Name Dose Route Start Last Admin Trade Name Quentin PRN Reason Stop Dose Admin Alum Jefferson/Mag Jefferson/Simeth XS 0 ml 04/04/21 18:25 04/04/21 18:36 15 ml/ Lidocaine HCl 5 ml PO 04/04/21 18:26 1 each ONETIME ONE Administration Sodium Chloride 1,000 mls @ 999 mls/hr 04/04/21 18:24 04/04/21 18:36 Normal Saline IV 04/04/21 19:24 999 mls/hr .Bolus ONE Administration Iopamidol 100 ml 04/04/21 19:11 04/04/21 19:21 Iopamidol 755 Mg/Ml 500 Ml Multipack Bottle IVPUSH 04/04/21 19:12 100 ml ONETIME ONE Administration Morphine Sulfate 4 mg 04/04/21 18:24 04/04/21 18:37 Morphine 4 Mg/Ml Vial IVPUSH 04/04/21 18:25 4 mg ONETIME ONE Administration Ondansetron HCl 4 mg 04/04/21 18:24 04/04/21 18:36 Ondansetron 4 Mg/2 Ml Sdv IVPUSH 04/04/21 18:25 4 mg ONETIME ONE Administration Pantoprazole Sodium 40 mg 04/04/21 18:24 04/04/21 18:37 Pantoprazole 40 Mg/10 Ml Syringe IVPUSH 04/04/21 18:25 40 mg NOW ONE Administration Departure - Departure Time of Disposition: 20:49 Condition: Good Sepsis Event Note (ED) - Focused Exam Vital Signs: Vital Signs Temp Pulse Resp BP Pulse Ox 04/04/21 19:59 94 18 117/76 99 04/04/21 18:20 36.5 C 83 20 207/125 H 100
[2021-04-04 18:54] LABS: BLOOD UREA NITROGEN,BUN 14 mg/dL (7.0-18.0); CARBON DIOXIDE,CO2 28.4 mmol/L (21.0-32.0); CHLORIDE,CL 98 mmol/L (98-107); GLUCOSE RANDOM 237 mg/dL (74-106); LIPASE 88 U/L (73-393); POTASSIUM,K 3.4 mmol/L (3.5-5.1); SODIUM,NA 138 mmol/L (136-145)
[2021-04-04] MEDS ORDERED: Iopamidol 755 MG/ML 500 ML Multipack Bottle IVPUSH ONE (19:11)
--- NOTE | 2021-04-04 19:59 | CT ---
INDICATION: Abdominal pain TECHNIQUE: CT abdomen and pelvis acquired with 100 cc Isovue 370 IV contrast. COMPARISON: March 07, 2021 FINDINGS: Lower chest: Unremarkable. Liver: Hepatic steatosis. Spleen: Unremarkable. Pancreas: Pancreatic calcifications. Gallbladder and bile ducts: Unremarkable. Adrenal glands: Thickened left adrenal gland, stable. Kidneys: Unremarkable. GI tract: Diverticulum of the gastric fundus. Appendix is not seen. Vascular structures: Vascular calcification. Lymph nodes: Unremarkable. Miscellaneous: Unremarkable. No free air or significant free fluid. Pelvic Organs: Status post hysterectomy. Bones: Internal fixation hardware at T11-T12. IMPRESSION: No acute intra-abdominal process identified. Chronic pancreatitis. Hepatic steatosis. Stable thickening of the left adrenal gland. Diverticulum of the gastric fundus. Status post hysterectomy. Please note that all CT scans at this facility use dose modulation, iterative reconstruction, and/or weight-based dosing when appropriate to reduce radiation dose to as low as reasonably achievable. Dictated by Yandy Bess MD @ 04/04/2021 7:58:21 PM (Electronically Signed)
== END 2021-04-04 21:11 | disposition home or self-care (01) ==
LOC: MW.ED 17:58
DX: K29.70 Gastritis, unspecified, without bleeding (principal); E11.9 Type 2 diabetes mellitus without complications; Z91.048 Other nonmedicinal substance allergy status; Z95.1 Presence of aortocoronary bypass graft; Z79.82 Long term (current) use of aspirin; Z79.899 Other long term (current) drug therapy
CPT/HCPCS: 36415; 74177; 80053; 81001; 82009; 82803; 82947; 83605; 83690; 83735; 85025; 96374; 96375; 99284; A9270; C9113; J2270; J2405; J7030; Q9967

== ENCOUNTER 2022-01-11 13:14 | Observation (INO) | payer MEDICARE, OTHER ==
[2022-01-11] MEDS ORDERED: Sodium Chloride 0.9% 10 ML Syringe FLUSH PRN (13:22)
[2022-01-11] MEDS ORDERED: Sodium Chloride 0.9% 2.5 ML Syringe FLUSH PRN (13:22)
[2022-01-11] MEDS ORDERED: Ondansetron 4 MG/2 ML SDV IVPUSH ONE (13:36)
[2022-01-11] MEDS ORDERED: Sodium Chloride 0.9% 1,000 ML IV ONE ×2 (13:36→15:02)
[2022-01-11] MEDS ORDERED: Morphine 2 MG/ML SYRINGE IVPUSH ONE (13:55)
[2022-01-11 14:12] LABS: CARBON DIOXIDE,CO2 22.3 mmol/L (21.0-32.0); POTASSIUM,K 3.5 mmol/L (3.5-5.1)
[2022-01-11] MEDS ORDERED: Iopamidol 755 MG/ML 500 ML Multipack Bottle IVPUSH STA (14:58)
[2022-01-11] MEDS ORDERED: Piperacillin/Tazobactam 3.375 GM in Sodium Chloride 0.9% 50 ML IV ONE (15:02)
[2022-01-11] MEDS ORDERED: Metoprolol Tartrate 5 MG/5 ML SDV IVPUSH STA (15:03)
[2022-01-11] MEDS ORDERED: Ondansetron 4 MG/2 ML SDV IVPUSH PRN ×2 (17:32→17:40)
[2022-01-11] MEDS ORDERED: Morphine 2 MG/ML SYRINGE IVPUSH PRN (17:32)
[2022-01-11] MEDS ORDERED: Glucagon,Human Recombinant 1 MG Vial IM PRN ×2 (17:35→17:53)
[2022-01-11] MEDS ORDERED: 50% Dextrose in Water 50 ML Syringe IVPUSH PRN ×2 (17:35→17:53)
[2022-01-11] MEDS ORDERED: Lactated Ringers 1,000 ML IV SCH (17:45)
[2022-01-11] MEDS: Lactated Ringers 1,000 ML IV SCH (17:46)
[2022-01-11] MEDS ORDERED: Insulin Regular, Human 100 Units/ML 10 ML Vial SUBCUT SCH (18:00)
[2022-01-11] MEDS: Insulin Aspart 100 Units/ML 3 ML Pen SUBCUT SCH ×2 (18:13→23:51)
[2022-01-11] MEDS: Pantoprazole 40 MG in Sodium Chloride 0.9% 10 ML IVPUSH SCH (21:02)
[2022-01-11] MEDS: Piperacillin/Tazobactam 3.375 GM in Sodium Chloride 0.9% 50 ML IV SCH (23:10)
[2022-01-12] MEDS: Carbidopa/Levodopa 50-200 MG Tab.ER PO SCH ×2 (01:18→21:03)
[2022-01-12] MEDS: Gabapentin 300 MG Cap PO SCH ×2 (01:18→21:03)
[2022-01-12] MEDS: Lactated Ringers 1,000 ML IV SCH (01:22)
[2022-01-12] MEDS ORDERED: Gabapentin 300 MG Cap PO SCH ×2 (06:00→21:00)
[2022-01-12 06:05] LABS: CARBON DIOXIDE,CO2 29.1 mmol/L (21.0-32.0); POTASSIUM,K 2.6 mmol/L (3.5-5.1)
[2022-01-12] MEDS: Piperacillin/Tazobactam 3.375 GM in Sodium Chloride 0.9% 50 ML IV SCH ×3 (06:39→23:39)
[2022-01-12] MEDS ORDERED: NS with KCl 40mEq 1,000 ML IV SCH ×2 (07:15)
[2022-01-12] MEDS ORDERED: Magnesium Sulfate/Water 2 GM in Premix Bag 1 BAG IV ONE (07:29)
[2022-01-12] MEDS: Insulin Aspart 100 Units/ML 3 ML Pen SUBCUT SCH ×3 (07:39→17:20)
[2022-01-12] MEDS: Pantoprazole 40 MG in Sodium Chloride 0.9% 10 ML IVPUSH SCH ×2 (07:51→21:03)
[2022-01-12] MEDS: Sertraline 100 MG Tab PO SCH (08:04)
[2022-01-12] MEDS ORDERED: buPROPion 150 MG Tab.ER PO SCH (09:00)
[2022-01-12] MEDS ORDERED: Carbidopa/Levodopa 50-200 MG Tab.ER PO SCH (09:00)
[2022-01-12] MEDS ORDERED: Cyclobenzaprine 5 MG Tab PO SCH (09:00)
[2022-01-12] MEDS: Sucralfate Suspension 1 GM/10 ML Cup PO SCH ×3 (11:43→21:03)
[2022-01-12] MEDS: Morphine 2 MG/ML SYRINGE IVPUSH PRN ×2 (16:56→21:02)
[2022-01-12 17:38] LABS: POTASSIUM,K 3.1 mmol/L (3.5-5.1)
[2022-01-12] MEDS ORDERED: Lovastatin [Lovastatin] 40 MG Tablet PO SCH (21:00)
[2022-01-13] MEDS: Insulin Aspart 100 Units/ML 3 ML Pen SUBCUT SCH ×3 (01:14→12:30)
[2022-01-13] MEDS: Lactated Ringers 1,000 ML IV SCH (03:04)
[2022-01-13 06:20] LABS: CARBON DIOXIDE,CO2 30.7 mmol/L (21.0-32.0); POTASSIUM,K 3.3 mmol/L (3.5-5.1)
[2022-01-13] MEDS: Sucralfate Suspension 1 GM/10 ML Cup PO SCH ×2 (06:35→11:41)
[2022-01-13] MEDS: Piperacillin/Tazobactam 3.375 GM in Sodium Chloride 0.9% 50 ML IV SCH (06:35)
[2022-01-13] MEDS ORDERED: NS + KCl 20mEq/L 1,000 ML IV SCH (07:30)
[2022-01-13] MEDS ORDERED: Magnesium Sulfate/Water 2 GM in Premix Bag 1 BAG IV ONE (07:30)
[2022-01-13] MEDS: Pantoprazole 40 MG in Sodium Chloride 0.9% 10 ML IVPUSH SCH (07:48)
[2022-01-13] MEDS: Sertraline 100 MG Tab PO SCH (08:30)
[2022-01-13] MEDS ORDERED: Potassium Chloride 20 MEQ Tab.ER PO ONE (09:58)
== END 2022-01-13 12:30 | disposition home or self-care (01) ==
LOC: MW.ED 13:14 → MW.MS 16:45
PROVIDERS: ADMIT Student in an Organized Health Care Education/Training Program; ATTEND Student in an Organized Health Care Education/Training Program
DX: K29.70 Gastritis, unspecified, without bleeding (principal); K25.9 Gastric ulcer, unspecified as acute or chronic, without hemorrhage or perforation; E11.9 Type 2 diabetes mellitus without complications; I10 Essential (primary) hypertension; F32.A Depression, unspecified; E78.5 Hyperlipidemia, unspecified; F17.210 Nicotine dependence, cigarettes, uncomplicated; F41.9 Anxiety disorder, unspecified; G25.81 Restless legs syndrome; Z98.890 Other specified postprocedural states; Z20.822 Contact with and (suspected) exposure to COVID-19; Z91.09 Other allergy status, other than to drugs and biological substances; Z79.899 Other long term (current) drug therapy
CPT/HCPCS: 36415; 71045; 74177; 80048; 80053; 81001; 82009; 82947; 83605; 83690; 83735; 84132; 84484; 85025; 87040; 93005; A9270; C9113; J1815; J2270; J2405; J2543; J3475; J3480; J3490; J7030; J7120; Q9967; U0002

== ENCOUNTER 2022-02-26 08:41 | Day surgery (SDC) | payer MEDICARE, OTHER ==
[~2022-02-26 08:41] MED LIST changes: -Betamethasone Acetate/Betamethasone Sod Phosphate 30 MG/5 ML MDV EPIDUR ONE; -Iopamidol 200-M 10 ML vial ITHECAL ONE; -Lidocaine 2% 5 ML SDV INJECT ONE; +Propofol 200 MG/20 ML SDV ONE; -Ropivacaine 0.5% 5 MG/ML 30 ML SDV INJECT ONE; +fentaNYL 100 MCG/2 ML SDV ONE
[2022-02-26] MEDS ORDERED: Lactated Ringers 1,000 ML IV SCH (08:45)
[2022-02-26] MEDS ORDERED: ePHEDrine 50 MG/ML SDV ONE ×2 (11:22→11:36)
[2022-02-26] MEDS ORDERED: Phenylephrine HCl In 0.9% NaCl 1 MG/10 ML Vial ONE (11:36)
[2022-02-26] MEDS ORDERED: Glycopyrrolate 0.2 MG/ML SDV ONE (11:36)
== END 2022-02-26 12:15 | disposition home or self-care (01) ==
LOC: MW.SDS 08:41
PROVIDERS: ATTEND Surgery
DX: K62.1 Rectal polyp (principal); K31.89 Other diseases of stomach and duodenum; K64.2 Third degree hemorrhoids; F41.9 Anxiety disorder, unspecified; I25.10 Atherosclerotic heart disease of native coronary artery without angina pectoris; F32.A Depression, unspecified; K21.9 Gastro-esophageal reflux disease without esophagitis; E78.5 Hyperlipidemia, unspecified; I10 Essential (primary) hypertension; E11.42 Type 2 diabetes mellitus with diabetic polyneuropathy; F17.210 Nicotine dependence, cigarettes, uncomplicated; M19.90 Unspecified osteoarthritis, unspecified site; Z91.048 Other nonmedicinal substance allergy status; Z90.710 Acquired absence of both cervix and uterus; Z98.890 Other specified postprocedural states; Z79.899 Other long term (current) drug therapy
CPT/HCPCS: J2704; J3010; J3490; J7120

== ENCOUNTER 2022-07-24 21:19 | Emergency (ER) | payer MEDICARE, OTHER ==
[2022-07-24] MEDS ORDERED: Diazepam 5 MG Tab PO ONE (21:39)
[2022-07-24] MEDS ORDERED: Methocarbamol 750 MG TAB PO STA ×2 (23:03→23:18)
== END 2022-07-24 23:26 | disposition home or self-care (01) ==
LOC: MW.ED 21:19
DX: S76.012A Strain of muscle, fascia and tendon of left hip, initial encounter (principal); M62.838 Other muscle spasm; I10 Essential (primary) hypertension; E11.9 Type 2 diabetes mellitus without complications; Z72.0 Tobacco use; Z91.048 Other nonmedicinal substance allergy status; Z79.899 Other long term (current) drug therapy; Z98.890 Other specified postprocedural states; W22.8XXA Striking against or struck by other objects, initial encounter
CPT/HCPCS: 73502; 99283; A9270

== ENCOUNTER 2022-08-11 05:55 | Emergency (ER) | payer MEDICARE, OTHER ==
[2022-08-11] MEDS ORDERED: HYDROmorphone 1 MG/ML Syringe IM ONE (06:05)
[2022-08-11] MEDS ORDERED: Ketorolac 30 MG/ML SDV IM ONE (06:06)
[2022-08-11] MEDS ORDERED: Dexamethasone 10 MG/ML SDV IM STA (06:06)
== END 2022-08-11 07:00 | disposition home or self-care (01) ==
LOC: MW.ED 05:55
DX: M54.42 Lumbago with sciatica, left side (principal); I10 Essential (primary) hypertension; E11.9 Type 2 diabetes mellitus without complications; Z91.048 Other nonmedicinal substance allergy status; Z95.1 Presence of aortocoronary bypass graft; Z86.16 Personal history of COVID-19
CPT/HCPCS: 96372; 99283; J1100; J1170; J1885

== ENCOUNTER 2022-08-19 04:31 | Emergency (ER) | payer MEDICARE, OTHER ==
[2022-08-19] MEDS ORDERED: Ketorolac 30 MG/ML SDV IVPUSH ONE (04:40)
[2022-08-19] MEDS ORDERED: HYDROmorphone 1 MG/ML Syringe IVPUSH ONE ×2 (04:40→06:52)
[2022-08-19 05:28] LABS: CARBON DIOXIDE,CO2 27.3 mmol/L (21.0-32.0); POTASSIUM,K 3.8 mmol/L (3.5-5.1)
== END 2022-08-21 08:15 | disposition home or self-care (01) ==
LOC: MW.ED 04:31
DX: M25.552 Pain in left hip (principal); I10 Essential (primary) hypertension; E11.9 Type 2 diabetes mellitus without complications; Z86.16 Personal history of COVID-19; Z91.048 Other nonmedicinal substance allergy status
CPT/HCPCS: 36415; 73700; 80053; 81001; 85025; 96374; 96375; 96376; 99284; J1170; J1885

== ENCOUNTER 2022-09-14 14:42 | Emergency (ER) | payer MEDICARE, OTHER ==
[2022-09-14] MEDS ORDERED: Sodium Chloride 0.9% 2.5 ML Syringe FLUSH PRN (14:50)
[2022-09-14] MEDS ORDERED: Sodium Chloride 0.9% 10 ML Syringe FLUSH PRN (14:50)
[2022-09-14] MEDS ORDERED: Ondansetron 4 MG/2 ML SDV IVPUSH ONE (14:51)
[2022-09-14 14:55] LABS: BASOPHILS PERCENT AUTO 0.1 % (0.0-1.5); EOSINOPHILS ABSOLUTE AUTO 0.2 K/uL (0.0-0.7); EOSINOPHILS PERCENT AUTO 1.2 % (0.0-7.0); HEMATOCRIT 39.2 % (36.0-46.0); HEMOGLOBIN 13.9 g/dL (12.0-16.0); LYMPHOCYTES ABSOLUTE AUTO 1.9 K/uL (0.6-2.4); LYMPHOCYTES PERCENT AUTO 12.2 % (16.0-40.0); MEAN CORPUSCULAR HEMOGLOBIN 31.7 pg (27.0-32.0); MEAN CORPUSCULAR HGB CONC 35.5 g/dL (31.0-37.0); MEAN CORPUSCULAR VOLUME 89.5 fL (80.0-98.0); MONOCYTES ABSOLUTE AUTO 1.2 K/uL (0.0-0.8); MONOCYTES PERCENT AUTO 7.4 % (0.0-15.0); NEUTROPHILS ABSOLUTE AUTO 12.5 K/uL (1.4-5.7); NEUTROPHILS PERCENT AUTO 79.1 % (48.0-80.0); NRBC ABSOLUTE 0 K/uL; PLATELET COUNT,PLT 278 K/uL (150-400); RED BLOOD CELL COUNT 4.38 M/uL (4.30-5.90); WHITE BLOOD CELL COUNT,WBC 15.76 K/uL (4.0-11.0)
[2022-09-14 15:23] LABS: A/G RATIO 1.1 (0.9-1.6); ALANINE AMINOTRANSFERASE,ALT 15 IU/L (14-63); ALBUMIN 4.2 g/dL (3.4-5.0); ALKALINE PHOSPHATASE 99 U/L (46-116); ASPARTATE AMNIOTRANSFERASE,AST 20 IU/L (15-37); BILIRUBIN TOTAL 0.4 mg/dL (0.2-1.0); BLOOD UREA NITROGEN,BUN 12 mg/dL (7.0-18.0); CALCIUM 9.5 mg/dL (8.5-10.1); CARBON DIOXIDE,CO2 25.6 mmol/L (21.0-32.0); CHLORIDE,CL 99 mmol/L (98-107); CREATININE 0.7 mg/dL (0.6-1.0); ESTIMATED GFR 94 mL/min (>60); GLUCOSE RANDOM 213 mg/dL (74-106); LIPASE 149 U/L (73-393); MAGNESIUM 1.8 mg/dL (1.8-2.4); POTASSIUM,K 3.5 mmol/L (3.5-5.1); PROTEIN TOTAL,TP 7.9 g/dL (6.4-8.2); SODIUM,NA 139 mmol/L (136-145)
[2022-09-14 16:00] LABS: CORONAVIRUS COVID-19 NAA NEGATIVE (NEGATIVE); INFLUENZA A NAA NEGATIVE (NEGATIVE); INFLUENZA B NAA NEGATIVE (NEGATIVE)
[2022-09-14] MEDS: Morphine 2 MG/ML SYRINGE IVPUSH ONE ×2 (16:05→17:21)
== END 2022-09-14 17:43 | disposition home or self-care (01) ==
LOC: MW.ED 14:42
DX: M62.838 Other muscle spasm (principal); I10 Essential (primary) hypertension; E11.9 Type 2 diabetes mellitus without complications; Z86.16 Personal history of COVID-19; Z91.048 Other nonmedicinal substance allergy status; Z95.1 Presence of aortocoronary bypass graft; Z20.822 Contact with and (suspected) exposure to COVID-19
CPT/HCPCS: 0240U; 36415; 71045; 80053; 83690; 83735; 84484; 85025; 93005; 96372; 96374; 96375; 99284; J2405; J3360; J3490; J2270

== ENCOUNTER 2022-09-15 14:28 | Emergency (ER) | payer MEDICARE, OTHER ==
[2022-09-15] MEDS ORDERED: Sodium Chloride 0.9% 10 ML Syringe FLUSH PRN (14:38)
[2022-09-15] MEDS ORDERED: Sodium Chloride 0.9% 2.5 ML Syringe FLUSH PRN (14:38)
[2022-09-15] MEDS ORDERED: Lactated Ringers 1,000 ML IV ONE (14:38)
[2022-09-15 16:20] LABS: BASOPHILS PERCENT AUTO 0.3 % (0.0-1.5); HEMATOCRIT 44.1 % (36.0-46.0); HEMOGLOBIN 15.7 g/dL (12.0-16.0); LYMPHOCYTES ABSOLUTE AUTO 1.3 K/uL (0.6-2.4); LYMPHOCYTES PERCENT AUTO 8.1 % (16.0-40.0); MEAN CORPUSCULAR HEMOGLOBIN 32.1 pg (27.0-32.0); MEAN CORPUSCULAR HGB CONC 35.6 g/dL (31.0-37.0); MEAN CORPUSCULAR VOLUME 90.2 fL (80.0-98.0); MONOCYTES ABSOLUTE AUTO 1.6 K/uL (0.0-0.8); MONOCYTES PERCENT AUTO 10.1 % (0.0-15.0); NEUTROPHILS PERCENT AUTO 81.5 % (48.0-80.0); PLATELET COUNT,PLT 345 K/uL (150-400); RED BLOOD CELL COUNT 4.89 M/uL (4.30-5.90); WHITE BLOOD CELL COUNT,WBC 15.97 K/uL (4.0-11.0)
[2022-09-15 16:28] LABS: LACTIC ACID 4.7 mmol/L (0.4-2.0)
[2022-09-15 16:38] LABS: BILIRUBIN TOTAL 0.6 mg/dL (0.2-1.0); CARBON DIOXIDE,CO2 22.5 mmol/L (21.0-32.0); CREATININE 1.5 mg/dL (0.6-1.0); EST CRCL DRUG DOSING (CG) 26.36 mL/min; MAGNESIUM 1.9 mg/dL (1.8-2.4); POTASSIUM,K 3.9 mmol/L (3.5-5.1); PROTEIN TOTAL,TP 8.1 g/dL (6.4-8.2)
[2022-09-15] MEDS ORDERED: Cefepime 2 GM in Sodium Chloride 0.9% 50 ML IV ONE (16:39)
[2022-09-15 17:19] LABS: COLOR,URINE YELLOW; GLUCOSE,URINE 100 mg/dL (NEGATIVE); KETONES,URINE TRACE mg/dL (NEGATIVE); LEUKOCYTE ESTERASE,URINE NEGATIVE (NEGATIVE); NITRITE,URINE NEGATIVE (NEGATIVE); OCCULT BLOOD,URINE LARGE (NEGATIVE); PH,URINE 6.5 (5.0-8.0); PROTEIN,URINE >=300 mg/dL (NEGATIVE)
[2022-09-15 17:42] LABS: APPEARANCE,URINE CLOUDY; BILIRUBIN,URINE MODERATE (NEGATIVE)
[2022-09-15 17:44] LABS: BACTERIA,URINE 3+ (NEGATIVE); COARSE GRANULAR CASTS,URINE 0-1 (NEGATIVE); EPITHELIAL CELLS,URINE FEW (NONE-FEW); MUCUS,URINE HEAVY (NONE-MOD)
[2022-09-15] MEDS ORDERED: Lactated Ringers 1,000 ML IV SCH (17:45)
[2022-09-15 17:46] LABS: HYALINE CASTS,URINE 0-2 (0-2/LPF)
== END 2022-09-15 21:40 ==
LOC: MW.ED 14:28
DX: A41.9 Sepsis, unspecified organism (principal); R65.20 Severe sepsis without septic shock; R77.8 Other specified abnormalities of plasma proteins; I10 Essential (primary) hypertension; E11.9 Type 2 diabetes mellitus without complications; Z91.048 Other nonmedicinal substance allergy status; Z86.16 Personal history of COVID-19
CPT/HCPCS: 36415; 71045; 80053; 81001; 83605; 83735; 84484; 85025; 87040; 93005; 96361; 96365; 96367; 99285; J0692; J3370; J3490; J7050; J7120; 93010; 99291

== ENCOUNTER 2022-09-21 18:28 | Emergency (ER) | payer MEDICARE, OTHER ==
[2022-09-21] MEDS ORDERED: Lactated Ringers 1,000 ML IV SCH (18:45)
[2022-09-21 18:57] LABS: BASOPHILS PERCENT AUTO 0.1 % (0.0-1.5); EOSINOPHILS ABSOLUTE AUTO 0.3 K/uL (0.0-0.7); HEMATOCRIT 32.8 % (36.0-46.0); HEMOGLOBIN 11.5 g/dL (12.0-16.0); LYMPHOCYTES ABSOLUTE AUTO 2.4 K/uL (0.6-2.4); LYMPHOCYTES PERCENT AUTO 24.9 % (16.0-40.0); MEAN CORPUSCULAR HEMOGLOBIN 31.7 pg (27.0-32.0); MEAN CORPUSCULAR HGB CONC 35.1 g/dL (31.0-37.0); MEAN CORPUSCULAR VOLUME 90.4 fL (80.0-98.0); MONOCYTES ABSOLUTE AUTO 0.8 K/uL (0.0-0.8); MONOCYTES PERCENT AUTO 7.9 % (0.0-15.0); NEUTROPHILS ABSOLUTE AUTO 6.1 K/uL (1.4-5.7); NEUTROPHILS PERCENT AUTO 64.1 % (48.0-80.0); NRBC ABSOLUTE 0 K/uL; PLATELET COUNT,PLT 276 K/uL (150-400); RED BLOOD CELL COUNT 3.63 M/uL (4.30-5.90); WHITE BLOOD CELL COUNT,WBC 9.48 K/uL (4.0-11.0)
[2022-09-21] MEDS ORDERED: Acetaminophen/HYDROcodone 325-5 MG Tab PO ONE (19:09)
[2022-09-21 19:12] LABS: INR < 0.93 (0.86-1.11)
[2022-09-21 19:30] LABS: ALBUMIN 3.4 g/dL (3.4-5.0); BILIRUBIN TOTAL 0.3 mg/dL (0.2-1.0); CALCIUM 8.8 mg/dL (8.5-10.1); CARBON DIOXIDE,CO2 28.7 mmol/L (21.0-32.0); CREATININE 0.9 mg/dL (0.6-1.0); EST CRCL DRUG DOSING (CG) 41.82 mL/min; MAGNESIUM 1.7 mg/dL (1.8-2.4); POTASSIUM,K 4.3 mmol/L (3.5-5.1); PROTEIN TOTAL,TP 6.7 g/dL (6.4-8.2)
[2022-09-21 19:35] LABS: LACTIC ACID 0.8 mmol/L (0.4-2.0)
[2022-09-21 19:50] LABS: BILIRUBIN,URINE NEGATIVE (NEGATIVE); COLOR,URINE YELLOW; GLUCOSE,URINE NEGATIVE (NEGATIVE); KETONES,URINE NEGATIVE (NEGATIVE); LEUKOCYTE ESTERASE,URINE MODERATE (NEGATIVE); NITRITE,URINE NEGATIVE (NEGATIVE); OCCULT BLOOD,URINE NEGATIVE (NEGATIVE); PROTEIN,URINE NEGATIVE (NEGATIVE); UROBILINOGEN,URINE 0.2 EU/dL (<2.0)
[2022-09-21 20:07] LABS: APPEARANCE,URINE HAZY
[2022-09-21 20:08] LABS: BACTERIA,URINE FEW (NEGATIVE); EPITHELIAL CELLS,URINE MODERATE (NONE-FEW); RBC,URINE 0-1 (0-2/HPF)
[2022-09-21] MEDS ORDERED: cefTRIAXone 1 GM in Sodium Chloride 0.9% 50 ML IV ONE (20:11)
== END 2022-09-21 20:59 | disposition home or self-care (01) ==
LOC: MW.ED 18:28
DX: R53.1 Weakness (principal); E11.9 Type 2 diabetes mellitus without complications; Z91.09 Other allergy status, other than to drugs and biological substances; Z87.891 Personal history of nicotine dependence
CPT/HCPCS: 36415; 80053; 81001; 83605; 83690; 83735; 84484; 85025; 85610; 86850; 86900; 86901; 87040; 87086; 93005; 96360; 99285; A9270; J0696; J3490; J7120; 93010; 99283

== ENCOUNTER 2022-11-21 14:42 | Emergency (ER) | payer MEDICARE, OTHER ==
[2022-11-21] MEDS ORDERED: Sodium Chloride 0.9% 1,000 ML IV STA (15:05)
[2022-11-21] MEDS ORDERED: Cyclobenzaprine 10 MG Tab PO STA (15:06)
[2022-11-21 15:37] LABS: APPEARANCE,URINE CLEAR; BILIRUBIN,URINE NEGATIVE (NEGATIVE); COLOR,URINE YELLOW; GLUCOSE,URINE NEGATIVE (NEGATIVE); KETONES,URINE >=80 mg/dL (NEGATIVE); LEUKOCYTE ESTERASE,URINE NEGATIVE (NEGATIVE); NITRITE,URINE NEGATIVE (NEGATIVE); OCCULT BLOOD,URINE TRACE-INTACT (NEGATIVE); PH,URINE 6.5 (5.0-8.0); PROTEIN,URINE 30 mg/dL (NEGATIVE); UROBILINOGEN,URINE 0.2 EU/dL (<2.0)
[2022-11-21 15:45] LABS: BACTERIA,URINE FEW (NEGATIVE); EPITHELIAL CELLS,URINE MODERATE (NONE-FEW); WBC,URINE 0-2 (0-5/HPF)
[2022-11-21 15:49] LABS: BASOPHILS PERCENT AUTO 0.3 % (0.0-1.5); EOSINOPHILS PERCENT AUTO 0.1 % (0.0-7.0); HEMATOCRIT 41.2 % (36.0-46.0); HEMOGLOBIN 14.3 g/dL (12.0-16.0); LYMPHOCYTES ABSOLUTE AUTO 0.8 K/uL (0.6-2.4); LYMPHOCYTES PERCENT AUTO 6.1 % (16.0-40.0); MEAN CORPUSCULAR HEMOGLOBIN 30.9 pg (27.0-32.0); MEAN CORPUSCULAR HGB CONC 34.7 g/dL (31.0-37.0); MONOCYTES ABSOLUTE AUTO 0.4 K/uL (0.0-0.8); MONOCYTES PERCENT AUTO 3.1 % (0.0-15.0); NEUTROPHILS ABSOLUTE AUTO 11.6 K/uL (1.4-5.7); NEUTROPHILS PERCENT AUTO 90.4 % (48.0-80.0); NRBC ABSOLUTE 0 K/uL; PLATELET COUNT,PLT 367 K/uL (150-400); RED BLOOD CELL COUNT 4.63 M/uL (4.30-5.90)
[2022-11-21 16:05] LABS: MAGNESIUM 1.5 mg/dL (1.8-2.4)
[2022-11-21 16:08] LABS: ALBUMIN 4.3 g/dL (3.4-5.0); BILIRUBIN TOTAL 0.7 mg/dL (0.2-1.0); CALCIUM 9.4 mg/dL (8.5-10.1); CARBON DIOXIDE,CO2 24.6 mmol/L (21.0-32.0); CREATININE 0.8 mg/dL (0.6-1.0); EST CRCL DRUG DOSING (CG) 43.72 mL/min; POTASSIUM,K 3.4 mmol/L (3.5-5.1); PROTEIN TOTAL,TP 8.4 g/dL (6.4-8.2)
[2022-11-21 16:09] LABS: A/G RATIO 1.1 (0.9-1.6)
[2022-11-21] MEDS ORDERED: Potassium Chloride 20 MEQ Tab.ER PO STA (17:23)
== END 2022-11-21 17:48 | disposition home or self-care (01) ==
LOC: MW.ED 14:42
DX: R10.9 Unspecified abdominal pain (principal); E11.9 Type 2 diabetes mellitus without complications; I10 Essential (primary) hypertension; F17.210 Nicotine dependence, cigarettes, uncomplicated; Z86.16 Personal history of COVID-19; Z91.048 Other nonmedicinal substance allergy status; Z79.899 Other long term (current) drug therapy
CPT/HCPCS: 36415; 80053; 81001; 83690; 83735; 85025; 96360; 99284; A9270; J7030; 99283

== ENCOUNTER 2022-11-23 12:40 | Observation (INO) | payer MEDICARE, OTHER ==
[2022-11-23] MEDS ORDERED: Sodium Chloride 0.9% 500 ML IV ONE (13:34)
[2022-11-23] MEDS ORDERED: Sodium Chloride 0.9% 2.5 ML Syringe FLUSH PRN (13:34)
[2022-11-23] MEDS ORDERED: Sodium Chloride 0.9% 10 ML Syringe FLUSH PRN (13:34)
[2022-11-23 14:16] LABS: BASOPHILS PERCENT AUTO 0.3 % (0.0-1.5); EOSINOPHILS ABSOLUTE AUTO 0.1 K/uL (0.0-0.7); EOSINOPHILS PERCENT AUTO 1.1 % (0.0-7.0); HEMATOCRIT 40.6 % (36.0-46.0); HEMOGLOBIN 13.6 g/dL (12.0-16.0); LYMPHOCYTES ABSOLUTE AUTO 2.1 K/uL (0.6-2.4); LYMPHOCYTES PERCENT AUTO 27.7 % (16.0-40.0); MEAN CORPUSCULAR HEMOGLOBIN 30.5 pg (27.0-32.0); MEAN CORPUSCULAR HGB CONC 33.5 g/dL (31.0-37.0); MONOCYTES ABSOLUTE AUTO 0.6 K/uL (0.0-0.8); MONOCYTES PERCENT AUTO 7.6 % (0.0-15.0); NEUTROPHILS ABSOLUTE AUTO 4.7 K/uL (1.4-5.7); NEUTROPHILS PERCENT AUTO 63.3 % (48.0-80.0); NRBC ABSOLUTE 0 K/uL; PLATELET COUNT,PLT 315 K/uL (150-400); RED BLOOD CELL COUNT 4.46 M/uL (4.30-5.90); WHITE BLOOD CELL COUNT,WBC 7.41 K/uL (4.0-11.0)
[2022-11-23 14:38] LABS: LACTIC ACID 3.4 mmol/L (0.4-2.0)
[2022-11-23] MEDS ORDERED: Cefepime 2 GM in Sodium Chloride 0.9% 50 ML IV ONE (14:40)
[2022-11-23] MEDS ORDERED: Sodium Chloride 0.9% 1,000 ML IV ONE ×2 (14:40→15:25)
[2022-11-23 14:44] LABS: ALBUMIN 3.6 g/dL (3.4-5.0); BILIRUBIN TOTAL 0.4 mg/dL (0.2-1.0); CALCIUM 9.1 mg/dL (8.5-10.1); CARBON DIOXIDE,CO2 24.8 mmol/L (21.0-32.0); CREATININE 1.1 mg/dL (0.6-1.0); EST CRCL DRUG DOSING (CG) 31.8 mL/min; POTASSIUM,K 3.7 mmol/L (3.5-5.1); PROTEIN TOTAL,TP 7.3 g/dL (6.4-8.2); TSH ULTRASENSITIVE 0.48 uIU/mL (0.36-3.74)
[2022-11-23 15:13] LABS: APPEARANCE,URINE CLEAR; BILIRUBIN,URINE NEGATIVE (NEGATIVE); COLOR,URINE RED; GLUCOSE,URINE NEGATIVE (NEGATIVE); KETONES,URINE TRACE mg/dL (NEGATIVE); LEUKOCYTE ESTERASE,URINE NEGATIVE (NEGATIVE); NITRITE,URINE NEGATIVE (NEGATIVE); OCCULT BLOOD,URINE NEGATIVE (NEGATIVE); PROTEIN,URINE NEGATIVE (NEGATIVE); UROBILINOGEN,URINE 0.2 EU/dL (<2.0)
[2022-11-23] MEDS ORDERED: methylPREDNISolone Sodium Succinate 125 MG/2 ML SDV IVPUSH ONE (15:36)
[2022-11-23 15:52] LABS: INR 1.02 (0.86-1.11); PTT,PARTIAL THROMBOPLSTIN TIME 27.7 SEC (23.9-30.7)
[2022-11-23] MEDS ORDERED: Iopamidol 755 MG/ML 500 ML Multipack Bottle IVPUSH ONE (15:55)
[2022-11-23] MEDS ORDERED: Naloxone 0.4 MG/ML SDV IVPUSH PRN (16:18)
[2022-11-23] MEDS ORDERED: fentaNYL 50 MCG/ML SDV IVPUSH ONE (16:18)
[2022-11-23] MEDS ORDERED: metroNIDAZOLE/Normal Saline 500 MG in Premix Bag 1 BAG IV ONE (16:20)
[2022-11-23] MEDS ORDERED: Norepinephrine Bit/D5W Premix 250 ML IV SCH (16:30)
[2022-11-23] MEDS ORDERED: Acetaminophen 325 MG Tab PO PRN (19:45)
[2022-11-23] MEDS ORDERED: Albuterol/Ipratropium 3.0-0.5 MG/3 ML Neb Soln NEB PRN (19:45)
[2022-11-23] MEDS ORDERED: Ondansetron 4 MG/2 ML SDV IVPUSH PRN (19:45)
[2022-11-23] MEDS ORDERED: Glucagon,Human Recombinant 1 MG Vial IM PRN (19:53)
[2022-11-23] MEDS ORDERED: 50% Dextrose in Water 50 ML Syringe IVPUSH PRN (19:53)
[2022-11-23] MEDS ORDERED: cefTRIAXone 1 GM in Sodium Chloride 0.9% 50 ML IV SCH (20:00)
[2022-11-23] MEDS ORDERED: Pantoprazole 40 MG in Sodium Chloride 0.9% 10 ML IVPUSH SCH (20:00)
[2022-11-23] MEDS ORDERED: Cyclobenzaprine 5 MG Tab PO SCH (20:00)
[2022-11-23] MEDS ORDERED: Azithromycin 500 MG in Sodium Chloride 0.9% 250 ML IV SCH (21:00)
[2022-11-23] MEDS ORDERED: Carbidopa/Levodopa 50-200 MG Tab.ER PO SCH (21:00)
[2022-11-23] MEDS: Insulin Aspart 100 Units/ML 3 ML Pen SUBCUT SCH (21:47)
[2022-11-23] MEDS: Gabapentin 300 MG Cap PO SCH (22:03)
[2022-11-23] MEDS: Sodium Chloride 0.9% 1,000 ML IV SCH (22:04)
[2022-11-23] MEDS: hydrALAZINE 20 MG/ML SDV IVPUSH PRN (23:53)
[2022-11-24] MEDS: Acetaminophen/oxyCODONE 325-5 MG Tab PO PRN ×2 (00:36→18:41)
[2022-11-24] MEDS: hydrALAZINE 20 MG/ML SDV IVPUSH PRN (02:19)
[2022-11-24] MEDS ORDERED: Bismuth Subsalicylate 262 MG/15 ML Susp 236 ML Bottle PO ONE (03:44)
[2022-11-24] MEDS ORDERED: Alum Hydro/Mag Hydro/Simeth XS 15 ML, Metoclopramide 5 MG, Lidocaine 2% 5 ML PO ONE ×3 (03:46)
[2022-11-24 06:19] LABS: HEMATOCRIT 40.4 % (36.0-46.0); HEMOGLOBIN 14.2 g/dL (12.0-16.0); MEAN CORPUSCULAR HEMOGLOBIN 30.7 pg (27.0-32.0); MEAN CORPUSCULAR HGB CONC 35.1 g/dL (31.0-37.0); MEAN CORPUSCULAR VOLUME 87.4 fL (80.0-98.0); MEAN PLATELET VOLUME 9.8 fL (7.40-12.00); RED BLOOD CELL COUNT 4.62 M/uL (4.30-5.90); WHITE BLOOD CELL COUNT,WBC 9.03 K/uL (4.0-11.0)
[2022-11-24 07:34] LABS: A/G RATIO 1.1 (0.9-1.6); ALBUMIN 4.2 g/dL (3.4-5.0); BILIRUBIN TOTAL 0.4 mg/dL (0.2-1.0); CALCIUM 8.5 mg/dL (8.5-10.1); CARBON DIOXIDE,CO2 17.7 mmol/L (21.0-32.0); CREATININE 0.6 mg/dL (0.6-1.0); EST CRCL DRUG DOSING (CG) 55.88 mL/min; MAGNESIUM 1.4 mg/dL (1.8-2.4); POTASSIUM,K 3.1 mmol/L (3.5-5.1)
[2022-11-24] MEDS: Sodium Chloride 0.9% 1,000 ML IV SCH (07:37)
[2022-11-24] MEDS ORDERED: Magnesium Sulfate/Water 4 GM in Premix Bag 1 BAG IV ONE (08:07)
[2022-11-24] MEDS: Insulin Aspart 100 Units/ML 3 ML Pen SUBCUT SCH ×3 (08:43→16:58)
[2022-11-24] MEDS: Potassium Chloride 20 MEQ Tab.ER PO SCH ×2 (08:48→11:58)
[2022-11-24] MEDS: Gabapentin 300 MG Cap PO SCH (08:48)
[2022-11-24] MEDS ORDERED: Sertraline 100 MG Tab PO SCH (09:00)
[2022-11-24] MEDS ORDERED: Carbidopa/Levodopa 50-200 MG Tab.ER PO SCH ×2 (12:00→21:00)
[2022-11-24] MEDS: Potassium Chloride 20 MEQ in Premix Bag 1 BAG IV SCH ×2 (14:29→16:54)
[2022-11-24] MEDS ORDERED: Amoxicillin/Clavulanate K 875-125 MG Tab PO ONE (19:21)
[2022-11-24] MEDS ORDERED: atorvaSTATin 10 MG Tab PO SCH (21:00)
== END 2022-11-24 20:00 | disposition home or self-care (01) ==
LOC: MW.ED 12:40 → MW.MS 19:24
PROVIDERS: ADMIT Family Medicine; ATTEND Family Medicine
DX: I95.9 Hypotension, unspecified (principal); J18.9 Pneumonia, unspecified organism; E87.20 Acidosis, unspecified; E86.0 Dehydration; N28.9 Disorder of kidney and ureter, unspecified; R91.1 Solitary pulmonary nodule; I10 Essential (primary) hypertension; G89.29 Other chronic pain; I25.10 Atherosclerotic heart disease of native coronary artery without angina pectoris; I21.4 Non-ST elevation (NSTEMI) myocardial infarction; F41.9 Anxiety disorder, unspecified; F32.A Depression, unspecified; E11.9 Type 2 diabetes mellitus without complications; G25.81 Restless legs syndrome; Z20.822 Contact with and (suspected) exposure to COVID-19; Z88.8 Allergy status to other drugs, medicaments and biological substances; Z79.899 Other long term (current) drug therapy; Z79.52 Long term (current) use of systemic steroids; Z79.891 Long term (current) use of opiate analgesic
CPT/HCPCS: 36415; 71260; 74177; 80053; 81003; 82947; 83605; 83690; 83735; 83880; 84132; 84443; 84484; 85025; 85027; 85379; 85610; 85730; 87040; 93005; 96361; 96365; 96367; 96368; 96375; 97161; 99285; A9270; C9113; J0360; J0456; J0692; J0696; J1815; J2405; J2930; J3010; J3475; J3480; J3490; J7030; J7040; J7050; Q9967; U0002; 93010; 96366; 99291; G0378; J7620-GY

== ENCOUNTER 2023-06-14 09:07 | Emergency (ER) | payer MEDICARE, OTHER ==
[2023-06-14] MEDS: Ibuprofen 600 MG Tab PO ONE (09:39)
[2023-06-14] MEDS: Acetaminophen/HYDROcodone 325-5 MG Tab PO ONE (09:40)
[2023-06-14] MEDS: Sodium Chloride 0.9% 10 ML Syringe FLUSH PRN (09:40)
[2023-06-14] MEDS: Sodium Chloride 0.9% 2.5 ML Syringe FLUSH PRN (09:40)
[2023-06-14 09:45] LABS: BASOPHILS ABSOLUTE AUTO 0.04 K/uL (0.00-0.20); BASOPHILS PERCENT AUTO 0.4 % (0.0-1.0); EOSINOPHILS ABSOLUTE AUTO 0.02 K/uL (0.00-0.45); EOSINOPHILS PERCENT AUTO 0.2 % (0.0-6.0); HEMATOCRIT 37.5 % (37.0-47.0); HEMOGLOBIN 13.8 g/dL (12.0-16.0); IMMATURE GRAN ABSOLUTE AUTO 0.03 K/uL (0.00-0.05); IMMATURE GRAN PERCENT AUTO 0.3 % (0.0-0.4); LYMPHOCYTES ABSOLUTE AUTO 1.18 K/uL (1.00-4.80); LYMPHOCYTES PERCENT AUTO 10.4 % (24.0-44.0); MEAN CORPUSCULAR HEMOGLOBIN 33.4 pg (28.0-32.0); MEAN CORPUSCULAR HGB CONC 36.8 g/dL (32.0-36.0); MEAN CORPUSCULAR VOLUME 90.8 fL (83.0-99.0); MEAN PLATELET VOLUME 9.6 fL (9.4-12.3); MONOCYTES ABSOLUTE AUTO 1.03 K/uL (0.00-0.80); MONOCYTES PERCENT AUTO 9.1 % (0.0-8.0); NEUTROPHILS ABSOLUTE AUTO 9.07 K/uL (1.80-7.70); NEUTROPHILS PERCENT AUTO 79.6 % (41.0-71.0); PLATELET COUNT,PLT 249 K/uL (150-400); RED BLOOD CELL COUNT 4.13 M/uL (4.10-5.30); WHITE BLOOD CELL COUNT,WBC 11.37 K/uL (3.9-11.3)
[2023-06-14 10:19] LABS: A/G RATIO 0.8 (0.9-1.6); ALBUMIN 3.4 g/dL (3.4-5.0); BILIRUBIN TOTAL 0.9 mg/dL (0.2-1.0); CALCIUM 9.3 mg/dL (8.5-10.1); CARBON DIOXIDE,CO2 28.5 mmol/L (21.0-32.0); CREATININE 0.6 mg/dL (0.6-1.0); EST CRCL DRUG DOSING (CG) 66.78 mL/min; POTASSIUM,K 2.8 mmol/L (3.5-5.1); PROTEIN TOTAL,TP 7.9 g/dL (6.4-8.2)
[2023-06-14] MEDS: Potassium Chloride 20 MEQ Tab.ER PO STA (11:09)
[2023-06-14] MEDS: Acetaminophen/HYDROcodone 325-10 MG Tab PO ONE (11:09)
[2023-06-14 11:47] LABS: APPEARANCE,URINE SLT CLOUDY; BILIRUBIN,URINE NEGATIVE (NEGATIVE); COLOR,URINE YELLOW; GLUCOSE,URINE NEGATIVE (NEGATIVE); KETONES,URINE 15 mg/dL (NEGATIVE); LEUKOCYTE ESTERASE,URINE NEGATIVE (NEGATIVE); NITRITE,URINE NEGATIVE (NEGATIVE); OCCULT BLOOD,URINE SMALL (NEGATIVE); PROTEIN,URINE NEGATIVE (NEGATIVE)
[2023-06-14 11:59] LABS: BACTERIA,URINE 3+ (NEGATIVE); EPITHELIAL CELLS,URINE RARE (NONE-FEW); WBC,URINE 0-1 (0-5/HPF)
[2023-06-14 12:00] LABS: MUCUS,URINE LIGHT (NONE-MOD)
== END 2023-06-14 12:37 | disposition home or self-care (01) ==
LOC: MW.ED 09:07
DX: M54.50 Low back pain, unspecified (principal); I10 Essential (primary) hypertension; E11.9 Type 2 diabetes mellitus without complications; Z91.048 Other nonmedicinal substance allergy status; Z79.899 Other long term (current) drug therapy
CPT/HCPCS: 80053; 81001; 82550; 83690; 85025; 99284; A9270; J3490; 99283

== ENCOUNTER 2023-06-20 02:56 | Emergency (ER) | payer MEDICARE, OTHER ==
[2023-06-20] MEDS: Methocarbamol 750 MG Tab PO STA ×2 (03:35→04:53)
[2023-06-20] MEDS: Ibuprofen 400 MG Tab PO ONE (03:35)
[2023-06-20 03:44] LABS: BASOPHILS ABSOLUTE AUTO 0.04 K/uL (0.00-0.20); BASOPHILS PERCENT AUTO 0.6 % (0.0-1.0); EOSINOPHILS ABSOLUTE AUTO 0.21 K/uL (0.00-0.45); EOSINOPHILS PERCENT AUTO 3.3 % (0.0-6.0); HEMATOCRIT 36.4 % (37.0-47.0); HEMOGLOBIN 12.8 g/dL (12.0-16.0); IMMATURE GRAN ABSOLUTE AUTO 0.03 K/uL (0.00-0.05); IMMATURE GRAN PERCENT AUTO 0.5 % (0.0-0.4); LYMPHOCYTES ABSOLUTE AUTO 1.36 K/uL (1.00-4.80); LYMPHOCYTES PERCENT AUTO 21.5 % (24.0-44.0); MEAN CORPUSCULAR HEMOGLOBIN 32.9 pg (28.0-32.0); MEAN CORPUSCULAR HGB CONC 35.2 g/dL (32.0-36.0); MEAN CORPUSCULAR VOLUME 93.6 fL (83.0-99.0); MEAN PLATELET VOLUME 8.9 fL (9.4-12.3); MONOCYTES ABSOLUTE AUTO 0.57 K/uL (0.00-0.80); NEUTROPHILS ABSOLUTE AUTO 4.11 K/uL (1.80-7.70); NEUTROPHILS PERCENT AUTO 65.1 % (41.0-71.0); PLATELET COUNT,PLT 328 K/uL (150-400); RED BLOOD CELL COUNT 3.89 M/uL (4.10-5.30); WHITE BLOOD CELL COUNT,WBC 6.32 K/uL (3.9-11.3)
[2023-06-20] MEDS: Acetaminophen/HYDROcodone 325-5 MG Tab PO ONE (04:06)
[2023-06-20 04:09] LABS: A/G RATIO 0.8 (0.9-1.6); ALBUMIN 3.5 g/dL (3.4-5.0); BILIRUBIN TOTAL 0.3 mg/dL (0.2-1.0); CALCIUM 9.4 mg/dL (8.5-10.1); CARBON DIOXIDE,CO2 31.4 mmol/L (21.0-32.0); CREATININE 0.7 mg/dL (0.6-1.0); EST CRCL DRUG DOSING (CG) 57.03 mL/min; MAGNESIUM 1.6 mg/dL (1.8-2.4); POTASSIUM,K 3.4 mmol/L (3.5-5.1); PROTEIN TOTAL,TP 7.7 g/dL (6.4-8.2)
[2023-06-20] MEDS: Dexamethasone 10 MG/ML SDV IM STA (04:53)
[2023-06-20] MEDS: Lidocaine 4% 1 each Patch TOP PRN (06:10)
[2023-06-20] MEDS: Acetaminophen/oxyCODONE 325-5 MG Tab PO ONE (06:33)
[2023-06-20] MEDS: Hydrochlorothiazide 12.5 MG Cap PO STA (07:33)
[2023-06-20] MEDS: Lisinopril 5 MG Tab PO ONE (07:34)
== END 2023-06-20 07:56 | disposition home or self-care (01) ==
LOC: MW.ED 02:56
DX: M62.830 Muscle spasm of back (principal); I10 Essential (primary) hypertension; E11.9 Type 2 diabetes mellitus without complications; Z90.710 Acquired absence of both cervix and uterus; Z79.899 Other long term (current) drug therapy; Z91.048 Other nonmedicinal substance allergy status
CPT/HCPCS: 36415; 72100; 72170; 80053; 83735; 85025; 96372; 99284; A9270; J1100; 99283

== ENCOUNTER 2023-08-26 19:09 | Emergency (ER) | payer MEDICARE, OTHER ==
[2023-08-26] MEDS ORDERED: Naloxone 0.4 MG/ML SDV IVPUSH PRN (19:15)
[2023-08-26] MEDS: Ondansetron 4 MG/2 ML SDV IVPUSH ONE (19:22)
[2023-08-26] MEDS: Morphine 4 MG/ML Syringe IVPUSH ONE (19:22)
[2023-08-26] MEDS: Sodium Chloride 0.9% 2.5 ML Syringe FLUSH PRN (19:22)
[2023-08-26] MEDS: Sodium Chloride 0.9% 10 ML Syringe FLUSH PRN (19:22)
[2023-08-26] MEDS: Sodium Chloride 0.9% 500 ML IV ONE (19:23)
[2023-08-26 19:24] LABS: BASE EXCESS VENOUS 4.4 (-2.0-3.0); BICARBONATE,VENOUS 27 mEQ/mL (22-28); PCO2 VENOUS 34 mmHG (41-51); PH,VENOUS 7.51 (7.31-7.41)
[2023-08-26 19:25] LABS: BASOPHILS ABSOLUTE AUTO 0.03 K/uL (0.00-0.20); BASOPHILS PERCENT AUTO 0.2 % (0.0-1.0); EOSINOPHILS ABSOLUTE AUTO 0.01 K/uL (0.00-0.45); EOSINOPHILS PERCENT AUTO 0.1 % (0.0-6.0); HEMATOCRIT 43.5 % (37.0-47.0); HEMOGLOBIN 15.1 g/dL (12.0-16.0); IMMATURE GRAN ABSOLUTE AUTO 0.05 K/uL (0.00-0.05); IMMATURE GRAN PERCENT AUTO 0.3 % (0.0-0.4); LYMPHOCYTES ABSOLUTE AUTO 0.94 K/uL (1.00-4.80); LYMPHOCYTES PERCENT AUTO 6.5 % (24.0-44.0); MEAN CORPUSCULAR HEMOGLOBIN 31.9 pg (28.0-32.0); MEAN CORPUSCULAR HGB CONC 34.7 g/dL (32.0-36.0); MEAN CORPUSCULAR VOLUME 91.8 fL (83.0-99.0); MEAN PLATELET VOLUME 8.7 fL (9.4-12.3); MONOCYTES ABSOLUTE AUTO 0.79 K/uL (0.00-0.80); MONOCYTES PERCENT AUTO 5.5 % (0.0-8.0); NEUTROPHILS ABSOLUTE AUTO 12.56 K/uL (1.80-7.70); NEUTROPHILS PERCENT AUTO 87.4 % (41.0-71.0); PLATELET COUNT,PLT 442 K/uL (150-400); RED BLOOD CELL COUNT 4.74 M/uL (4.10-5.30); WHITE BLOOD CELL COUNT,WBC 14.38 K/uL (3.9-11.3)
[2023-08-26 19:26] LABS: PO2 VENOUS < 30 mmHG (80-100)
[2023-08-26 19:47] LABS: HEMOGLOBIN A1C 6.9 %
[2023-08-26 20:03] LABS: A/G RATIO 0.7 (0.9-1.6); ALBUMIN 3.8 g/dL (3.4-5.0); BILIRUBIN TOTAL 0.5 mg/dL (0.2-1.0); CALCIUM 10.3 mg/dL (8.5-10.1); CARBON DIOXIDE,CO2 24.2 mmol/L (21.0-32.0); EST CRCL DRUG DOSING (CG) 35.61 mL/min; POTASSIUM,K 4.1 mmol/L (3.5-5.1); PROTEIN TOTAL,TP 9.5 g/dL (6.4-8.2)
[2023-08-26] MEDS: Iopamidol 755 MG/ML 500 ML Multipack Bottle IVPUSH ONE (20:33)
[2023-08-26] MEDS: Aspirin 81 MG Tab.Chew PO ONE (20:39)
[2023-08-26] MEDS: Pantoprazole 40 MG in Sodium Chloride 0.9% 10 ML IVPUSH ONE (22:46)
[2023-08-26] MEDS: Heparin Sodium 5,000 Units/ML Vial IVPUSH ONE (22:46)
[2023-08-26] MEDS: Heparin Sodium/0.45% NaCl 500 ML IV SCH (22:49)
== END 2023-08-27 00:10 ==
LOC: MW.ED 19:09
DX: I21.4 Non-ST elevation (NSTEMI) myocardial infarction (principal); I10 Essential (primary) hypertension; E11.9 Type 2 diabetes mellitus without complications; Z79.899 Other long term (current) drug therapy; Z91.048 Other nonmedicinal substance allergy status; Z75.8 Other problems related to medical facilities and other health care
CPT/HCPCS: 36415; 74177; 80053; 82803; 83036; 83690; 84484; 85025; 85730; 93005; 96365; 96375; 99285; A9270; C9113; J1644; J2270; J2405; J3490; J7040; Q9967; 93010; 99291

== ENCOUNTER 2023-11-03 16:47 | Emergency (ER) | payer MEDICARE, OTHER ==
[2023-11-03] MEDS: Sodium Chloride 0.9% 2.5 ML Syringe FLUSH PRN (18:02)
[2023-11-03] MEDS: LORazepam 2 MG/ML SDV IVPUSH ONE (18:02)
[2023-11-03] MEDS: Sodium Chloride 0.9% 10 ML Syringe FLUSH PRN (18:02)
[2023-11-03] MEDS: Sodium Chloride 0.9% 500 ML IV SCH (18:03)
[2023-11-03 18:32] LABS: A/G RATIO 0.9 (0.9-1.6); ALBUMIN 3.8 g/dL (3.4-5.0); BILIRUBIN TOTAL 0.3 mg/dL (0.2-1.0); CALCIUM 8.9 mg/dL (8.5-10.1); CARBON DIOXIDE,CO2 27.5 mmol/L (21.0-32.0); CREATININE 0.6 mg/dL (0.6-1.0); EST CRCL DRUG DOSING (CG) 64.35 mL/min; MAGNESIUM 1.7 mg/dL (1.8-2.4); PHOSPHORUS 3.8 mg/dL (2.6-4.7); POTASSIUM,K 3.4 mmol/L (3.5-5.1)
[2023-11-03] MEDS: Potassium Chloride 20 MEQ Tab.ER PO ONE (18:58)
[2023-11-03] MEDS: Aluminum Hydroxide/Magnesium Hydroxide/Simethicone XS Susp 30 ML Cup PO ONE (18:58)
== END 2023-11-03 19:28 | disposition home or self-care (01) ==
LOC: MW.ED 16:47
DX: M62.838 Other muscle spasm (principal); I10 Essential (primary) hypertension; E11.9 Type 2 diabetes mellitus without complications; Z79.899 Other long term (current) drug therapy; Z91.048 Other nonmedicinal substance allergy status
CPT/HCPCS: 36415; 80053; 83735; 84100; 96374; 96376; 99283; A9270; J3360; J3490; J7040; 99284

== ENCOUNTER 2023-11-05 10:43 | Inpatient (IN) | payer MEDICARE, OTHER ==
[2023-11-05] MEDS: Sodium Chloride 0.9% 500 ML IV SCH (11:19)
[2023-11-05 11:32] LABS: BASOPHILS ABSOLUTE AUTO 0.03 K/uL (0.00-0.20); BASOPHILS PERCENT AUTO 0.2 % (0.0-1.0); EOSINOPHILS ABSOLUTE AUTO 0.02 K/uL (0.00-0.45); EOSINOPHILS PERCENT AUTO 0.1 % (0.0-6.0); HEMATOCRIT 43.5 % (37.0-47.0); IMMATURE GRAN ABSOLUTE AUTO 0.07 K/uL (0.00-0.05); IMMATURE GRAN PERCENT AUTO 0.4 % (0.0-0.4); LYMPHOCYTES ABSOLUTE AUTO 1.82 K/uL (1.00-4.80); LYMPHOCYTES PERCENT AUTO 11.4 % (24.0-44.0); MEAN CORPUSCULAR HGB CONC 34.5 g/dL (32.0-36.0); MEAN CORPUSCULAR VOLUME 89.9 fL (83.0-99.0); MEAN PLATELET VOLUME 9.3 fL (9.4-12.3); MONOCYTES ABSOLUTE AUTO 1.25 K/uL (0.00-0.80); MONOCYTES PERCENT AUTO 7.8 % (0.0-8.0); NEUTROPHILS ABSOLUTE AUTO 12.77 K/uL (1.80-7.70); NEUTROPHILS PERCENT AUTO 80.1 % (41.0-71.0); PLATELET COUNT,PLT 356 K/uL (150-400); RED BLOOD CELL COUNT 4.84 M/uL (4.10-5.30); WHITE BLOOD CELL COUNT,WBC 15.96 K/uL (3.9-11.3)
[2023-11-05 12:00] LABS: A/G RATIO 0.9 (0.9-1.6); ALBUMIN 4.1 g/dL (3.4-5.0); BILIRUBIN TOTAL 0.6 mg/dL (0.2-1.0); CARBON DIOXIDE,CO2 27.2 mmol/L (21.0-32.0); CREATININE 2.5 mg/dL (0.6-1.0); EST CRCL DRUG DOSING (CG) 13.72 mL/min; POTASSIUM,K 4.1 mmol/L (3.5-5.1); PROTEIN TOTAL,TP 8.8 g/dL (6.4-8.2)
[2023-11-05 12:07] LABS: LACTIC ACID 3.5 mmol/L (0.4-2.0)
[2023-11-05] MEDS: Ondansetron 4 MG/2 ML SDV IVPUSH ONE (12:15)
[2023-11-05] MEDS: LORazepam 2 MG/ML SDV IVPUSH ONE ×2 (12:35→15:14)
[2023-11-05] MEDS: Sodium Chloride 0.9% 1,000 ML IV ONE (12:36)
[2023-11-05] MEDS: cefTRIAXone 1 GM in Sodium Chloride 0.9% 50 ML IV ONE (13:58)
[2023-11-05 14:02] LABS: APPEARANCE,URINE CLOUDY; COLOR,URINE YELLOW; GLUCOSE,URINE NEGATIVE (NEGATIVE); KETONES,URINE TRACE mg/dL (NEGATIVE); LEUKOCYTE ESTERASE,URINE MODERATE (NEGATIVE); NITRITE,URINE POSITIVE (NEGATIVE); OCCULT BLOOD,URINE MODERATE (NEGATIVE); PH,URINE 5.5 (5.0-8.0); PROTEIN,URINE 100 mg/dL (NEGATIVE); UROBILINOGEN,URINE 0.2 EU/dL (<2.0)
[2023-11-05 14:12] LABS: BILIRUBIN,URINE SMALL (NEGATIVE)
[2023-11-05 14:13] LABS: BACTERIA,URINE 2+ (NEGATIVE); EPITHELIAL CELLS,URINE FEW (NONE-FEW); MUCUS,URINE LIGHT (NONE-MOD); WBC,URINE 50-60 (0-5/HPF)
[2023-11-05 15:18] LABS: BASE EXCESS VENOUS -0.9 (-2.0-3.0); PH,VENOUS 7.35 (7.31-7.41)
[2023-11-05] MEDS: Sodium Chloride 0.9% 1,000 ML IV SCH (23:54)
[2023-11-06 00:03] LABS: BASOPHILS ABSOLUTE AUTO 0.02 K/uL (0.00-0.20); BASOPHILS PERCENT AUTO 0.2 % (0.0-1.0); EOSINOPHILS ABSOLUTE AUTO 0.03 K/uL (0.00-0.45); EOSINOPHILS PERCENT AUTO 0.3 % (0.0-6.0); HEMOGLOBIN 14.2 g/dL (12.0-16.0); IMMATURE GRAN ABSOLUTE AUTO 0.03 K/uL (0.00-0.05); IMMATURE GRAN PERCENT AUTO 0.3 % (0.0-0.4); LYMPHOCYTES ABSOLUTE AUTO 1.98 K/uL (1.00-4.80); LYMPHOCYTES PERCENT AUTO 18.7 % (24.0-44.0); MEAN CORPUSCULAR HEMOGLOBIN 30.4 pg (28.0-32.0); MEAN CORPUSCULAR HGB CONC 33.8 g/dL (32.0-36.0); MEAN CORPUSCULAR VOLUME 89.9 fL (83.0-99.0); MONOCYTES ABSOLUTE AUTO 1.13 K/uL (0.00-0.80); MONOCYTES PERCENT AUTO 10.7 % (0.0-8.0); NEUTROPHILS PERCENT AUTO 69.8 % (41.0-71.0); PLATELET COUNT,PLT 287 K/uL (150-400); RED BLOOD CELL COUNT 4.67 M/uL (4.10-5.30); WHITE BLOOD CELL COUNT,WBC 10.59 K/uL (3.9-11.3)
[2023-11-06 00:40] LABS: CALCIUM 9.3 mg/dL (8.5-10.1); CARBON DIOXIDE,CO2 26.2 mmol/L (21.0-32.0); EST CRCL DRUG DOSING (CG) 33.47 mL/min; POTASSIUM,K 3.3 mmol/L (3.5-5.1)
[2023-11-06] MEDS: Heparin Sodium 5,000 Units/ML Vial SUBCUT SCH (05:23)
[2023-11-06 05:50] LABS: BASOPHILS ABSOLUTE AUTO 0.01 K/uL (0.00-0.20); BASOPHILS PERCENT AUTO 0.1 % (0.0-1.0); EOSINOPHILS ABSOLUTE AUTO 0.03 K/uL (0.00-0.45); EOSINOPHILS PERCENT AUTO 0.3 % (0.0-6.0); HEMATOCRIT 38.1 % (37.0-47.0); HEMOGLOBIN 12.8 g/dL (12.0-16.0); IMMATURE GRAN ABSOLUTE AUTO 0.03 K/uL (0.00-0.05); IMMATURE GRAN PERCENT AUTO 0.3 % (0.0-0.4); LYMPHOCYTES ABSOLUTE AUTO 1.55 K/uL (1.00-4.80); LYMPHOCYTES PERCENT AUTO 17.4 % (24.0-44.0); MEAN CORPUSCULAR HEMOGLOBIN 30.6 pg (28.0-32.0); MEAN CORPUSCULAR HGB CONC 33.6 g/dL (32.0-36.0); MEAN CORPUSCULAR VOLUME 91.1 fL (83.0-99.0); MEAN PLATELET VOLUME 8.9 fL (9.4-12.3); MONOCYTES ABSOLUTE AUTO 0.73 K/uL (0.00-0.80); MONOCYTES PERCENT AUTO 8.2 % (0.0-8.0); NEUTROPHILS ABSOLUTE AUTO 6.56 K/uL (1.80-7.70); NEUTROPHILS PERCENT AUTO 73.7 % (41.0-71.0); PLATELET COUNT,PLT 277 K/uL (150-400); RED BLOOD CELL COUNT 4.18 M/uL (4.10-5.30); WHITE BLOOD CELL COUNT,WBC 8.91 K/uL (3.9-11.3)
[2023-11-06 06:07] LABS: CALCIUM 8.7 mg/dL (8.5-10.1); CARBON DIOXIDE,CO2 27.7 mmol/L (21.0-32.0); CREATININE 0.7 mg/dL (0.6-1.0); EST CRCL DRUG DOSING (CG) 47.81 mL/min; POTASSIUM,K 3.1 mmol/L (3.5-5.1)
[2023-11-06] MEDS: Baclofen 10 MG Tab PO ONE ×2 (06:16→09:05)
[2023-11-06] MEDS: Carbidopa/Levodopa 50-200 MG Tab.ER PO SCH ×2 (08:01→21:03)
[2023-11-06] MEDS: Acetaminophen 325 MG Tab PO PRN (09:03)
[2023-11-06] MEDS: Gabapentin 100 MG Cap PO SCH (09:04)
[2023-11-06 11:27] LABS: BASOPHILS ABSOLUTE AUTO 0.01 K/uL (0.00-0.20); BASOPHILS PERCENT AUTO 0.1 % (0.0-1.0); EOSINOPHILS ABSOLUTE AUTO 0.05 K/uL (0.00-0.45); EOSINOPHILS PERCENT AUTO 0.5 % (0.0-6.0); HEMATOCRIT 35.3 % (37.0-47.0); IMMATURE GRAN ABSOLUTE AUTO 0.02 K/uL (0.00-0.05); IMMATURE GRAN PERCENT AUTO 0.2 % (0.0-0.4); LYMPHOCYTES ABSOLUTE AUTO 2.14 K/uL (1.00-4.80); LYMPHOCYTES PERCENT AUTO 23.1 % (24.0-44.0); MEAN CORPUSCULAR HEMOGLOBIN 30.5 pg (28.0-32.0); MEAN CORPUSCULAR VOLUME 89.6 fL (83.0-99.0); MEAN PLATELET VOLUME 9.1 fL (9.4-12.3); MONOCYTES ABSOLUTE AUTO 0.76 K/uL (0.00-0.80); MONOCYTES PERCENT AUTO 8.2 % (0.0-8.0); NEUTROPHILS PERCENT AUTO 67.9 % (41.0-71.0); PLATELET COUNT,PLT 274 K/uL (150-400); RED BLOOD CELL COUNT 3.94 M/uL (4.10-5.30); WHITE BLOOD CELL COUNT,WBC 9.28 K/uL (3.9-11.3)
[2023-11-06 11:42] LABS: CALCIUM 8.7 mg/dL (8.5-10.1); CARBON DIOXIDE,CO2 26.3 mmol/L (21.0-32.0); CREATININE 0.7 mg/dL (0.6-1.0); EST CRCL DRUG DOSING (CG) 47.81 mL/min; POTASSIUM,K 3.1 mmol/L (3.5-5.1)
[2023-11-06] MEDS: Baclofen 10 MG Tab PO SCH (11:48)
[2023-11-06] MEDS: Potassium Chloride 20 MEQ Tab.ER PO ONE (11:49)
[2023-11-06] MEDS: cefTRIAXone 1 GM in Sodium Chloride 0.9% 50 ML IV SCH (13:32)
[2023-11-06] MEDS: Gabapentin 300 MG Cap PO SCH (21:04)
[2023-11-07 06:51] LABS: MAGNESIUM 1.4 mg/dL (1.8-2.4); PHOSPHORUS 2.4 mg/dL (2.6-4.7)
[2023-11-07] MEDS: Propranolol 60 MG Cap.ER PO SCH (10:27)
[2023-11-07] MEDS: Magnesium Sulfate/Water 2 GM in Premix Bag 1 BAG IV ONE (12:07)
[2023-11-07] MEDS: Phosphorus #1 250 MG Tab PO SCH (12:09)
[2023-11-07] MEDS: Magnesium Oxide 400 MG Tab PO ONE (14:39)
[2023-11-07] MEDS ORDERED: Lisinopril 10 MG Tab PO SCH (18:00)
== END 2023-11-07 15:50 | disposition home or self-care (01) | DRG 872 ==
LOC: MW.ED 10:43 → MW.MS 16:34
PROVIDERS: ADMIT Internal Medicine; ATTEND Internal Medicine
DX: A41.9 Sepsis, unspecified organism (principal); N17.9 Acute kidney failure, unspecified; N30.00 Acute cystitis without hematuria; G93.40 Encephalopathy, unspecified; R65.20 Severe sepsis without septic shock; I10 Essential (primary) hypertension; G25.81 Restless legs syndrome; E78.00 Pure hypercholesterolemia, unspecified; E11.9 Type 2 diabetes mellitus without complications; M19.90 Unspecified osteoarthritis, unspecified site; F32.A Depression, unspecified; F41.9 Anxiety disorder, unspecified; F17.210 Nicotine dependence, cigarettes, uncomplicated; Z95.1 Presence of aortocoronary bypass graft; Z88.8 Allergy status to other drugs, medicaments and biological substances; Z79.899 Other long term (current) drug therapy; Z90.710 Acquired absence of both cervix and uterus; Z96.659 Presence of unspecified artificial knee joint; Z98.890 Other specified postprocedural states
CPT/HCPCS: 36415; 70450; 70450-26; 71045; 71045-26; 74176; 74176-26; 80048; 80053; 81001; 82140; 82803; 83605; 83690; 83735; 84100; 84484; 85025; 87040; 87086; 87088; 87186; 96361; 96365; 96375; 99285; 99285-25; A9270-GY; J0696; J1644; J2060; J2405; J3475; J3490; J7030; J7040

== ENCOUNTER 2024-06-13 02:14 | Emergency (ER) | payer MEDICARE, OTHER ==
[2024-06-13] MEDS ORDERED: Sodium Chloride 0.9% 10 ML Syringe FLUSH PRN (02:28)
[2024-06-13] MEDS ORDERED: Sodium Chloride 0.9% 2.5 ML Syringe FLUSH PRN (02:28)
[2024-06-13] MEDS: Ketorolac 30 MG/ML SDV IVPUSH ONE (02:34)
[2024-06-13] MEDS: LORazepam 2 MG/ML SDV IVPUSH ONE (02:35)
[2024-06-13 02:43] LABS: BASOPHILS ABSOLUTE AUTO 0.06 K/uL (0.00-0.20); BASOPHILS PERCENT AUTO 0.4 % (0.0-1.0); EOSINOPHILS ABSOLUTE AUTO 0.28 K/uL (0.00-0.45); EOSINOPHILS PERCENT AUTO 1.9 % (0.0-6.0); HEMATOCRIT 40.1 % (37.0-47.0); HEMOGLOBIN 14.3 g/dL (12.0-16.0); IMMATURE GRAN ABSOLUTE AUTO 0.05 K/uL (0.00-0.05); IMMATURE GRAN PERCENT AUTO 0.3 % (0.0-0.4); LYMPHOCYTES ABSOLUTE AUTO 2.09 K/uL (1.00-4.80); LYMPHOCYTES PERCENT AUTO 13.9 % (24.0-44.0); MEAN CORPUSCULAR HEMOGLOBIN 32.4 pg (28.0-32.0); MEAN CORPUSCULAR HGB CONC 35.7 g/dL (32.0-36.0); MEAN CORPUSCULAR VOLUME 90.9 fL (83.0-99.0); MEAN PLATELET VOLUME 8.8 fL (9.4-12.3); MONOCYTES ABSOLUTE AUTO 0.96 K/uL (0.00-0.80); MONOCYTES PERCENT AUTO 6.4 % (0.0-8.0); NEUTROPHILS ABSOLUTE AUTO 11.64 K/uL (1.80-7.70); NEUTROPHILS PERCENT AUTO 77.1 % (41.0-71.0); PLATELET COUNT,PLT 234 K/uL (150-400); RED BLOOD CELL COUNT 4.41 M/uL (4.10-5.30); WHITE BLOOD CELL COUNT,WBC 15.08 K/uL (3.9-11.3)
[2024-06-13] MEDS: Carbidopa/Levodopa 25-100 MG Tab.ER PO ONE (02:45)
[2024-06-13 03:13] LABS: A/G RATIO 1.3 (0.9-1.6); ALBUMIN 4.2 g/dL (3.4-5.0); BILIRUBIN TOTAL 0.6 mg/dL (0.2-1.0); CALCIUM 9.4 mg/dL (8.5-10.1); CARBON DIOXIDE,CO2 24.6 mmol/L (21.0-32.0); CREATININE 0.7 mg/dL (0.6-1.0); EST CRCL DRUG DOSING (CG) 48.4 mL/min; POTASSIUM,K 4.3 mmol/L (3.5-5.1); PROTEIN TOTAL,TP 7.5 g/dL (6.4-8.2)
== END 2024-06-13 03:52 | disposition home or self-care (01) ==
LOC: MW.ED 02:14
DX: G25.81 Restless legs syndrome (principal); I10 Essential (primary) hypertension; E78.00 Pure hypercholesterolemia, unspecified; E11.9 Type 2 diabetes mellitus without complications; Z75.8 Other problems related to medical facilities and other health care; Z91.048 Other nonmedicinal substance allergy status; Z79.899 Other long term (current) drug therapy; Z79.84 Long term (current) use of oral hypoglycemic drugs; Z90.710 Acquired absence of both cervix and uterus
CPT/HCPCS: 36415; 80053; 85025; 96374; 96375; 99284; A9270; J1885; J2060; 99283

== ENCOUNTER 2024-06-19 10:24 | Emergency (ER) | payer MEDICARE, OTHER ==
[2024-06-19 10:51] LABS: BASOPHILS ABSOLUTE AUTO 0.08 K/uL (0.00-0.20); BASOPHILS PERCENT AUTO 0.5 % (0.0-1.0); EOSINOPHILS PERCENT AUTO 1.7 % (0.0-6.0); HEMATOCRIT 42.8 % (37.0-47.0); HEMOGLOBIN 14.9 g/dL (12.0-16.0); IMMATURE GRAN ABSOLUTE AUTO 0.08 K/uL (0.00-0.05); IMMATURE GRAN PERCENT AUTO 0.5 % (0.0-0.4); LYMPHOCYTES ABSOLUTE AUTO 1.88 K/uL (1.00-4.80); LYMPHOCYTES PERCENT AUTO 10.7 % (24.0-44.0); MEAN CORPUSCULAR HGB CONC 34.8 g/dL (32.0-36.0); MEAN CORPUSCULAR VOLUME 91.8 fL (83.0-99.0); MONOCYTES ABSOLUTE AUTO 0.97 K/uL (0.00-0.80); MONOCYTES PERCENT AUTO 5.5 % (0.0-8.0); NEUTROPHILS PERCENT AUTO 81.1 % (41.0-71.0); PLATELET COUNT,PLT 344 K/uL (150-400); RED BLOOD CELL COUNT 4.66 M/uL (4.10-5.30); WHITE BLOOD CELL COUNT,WBC 17.51 K/uL (3.9-11.3)
[2024-06-19] MEDS: Sodium Chloride 0.9% 1,000 ML IV ONE (10:54)
[2024-06-19] MEDS: Ondansetron 4 MG/2 ML SDV IVPUSH ONE (10:54)
[2024-06-19 11:21] LABS: A/G RATIO 1.2 (0.9-1.6); ALBUMIN 4.2 g/dL (3.4-5.0); BILIRUBIN TOTAL 0.6 mg/dL (0.2-1.0); CALCIUM 9.8 mg/dL (8.5-10.1); CARBON DIOXIDE,CO2 29.2 mmol/L (21.0-32.0); CREATININE 0.7 mg/dL (0.6-1.0); EST CRCL DRUG DOSING (CG) 50.17 mL/min; POTASSIUM,K 3.8 mmol/L (3.5-5.1); PROTEIN TOTAL,TP 7.8 g/dL (6.4-8.2)
[2024-06-19] MEDS: Morphine 2 MG/ML SYRINGE IVPUSH ONE (11:26)
[2024-06-19 13:19] LABS: APPEARANCE,URINE CLOUDY; BILIRUBIN,URINE NEGATIVE (NEGATIVE); COLOR,URINE YELLOW; GLUCOSE,URINE NEGATIVE (NEGATIVE); KETONES,URINE TRACE mg/dL (NEGATIVE); LEUKOCYTE ESTERASE,URINE NEGATIVE (NEGATIVE); NITRITE,URINE NEGATIVE (NEGATIVE); OCCULT BLOOD,URINE NEGATIVE (NEGATIVE); PROTEIN,URINE NEGATIVE (NEGATIVE); UROBILINOGEN,URINE 0.2 EU/dL (<2.0)
[2024-06-19] MEDS: Iopamidol 755 MG/ML 500 ML Multipack Bottle IVPUSH STA (13:30)
== END 2024-06-19 13:58 | disposition home or self-care (01) ==
LOC: MW.ED 10:24
DX: K57.30 Diverticulosis of large intestine without perforation or abscess without bleeding (principal); K29.70 Gastritis, unspecified, without bleeding; I10 Essential (primary) hypertension; E78.00 Pure hypercholesterolemia, unspecified; E11.9 Type 2 diabetes mellitus without complications; Z90.710 Acquired absence of both cervix and uterus; Z96.659 Presence of unspecified artificial knee joint; Z91.048 Other nonmedicinal substance allergy status; Z79.84 Long term (current) use of oral hypoglycemic drugs; Z79.899 Other long term (current) drug therapy; Z75.8 Other problems related to medical facilities and other health care
CPT/HCPCS: 36415; 71045; 74177; 80053; 81003; 83690; 85025; 87428; 93005; 96361; 96374; 96375; 99285; J2270; J2405; J7030; Q9967; 93010; 99283

== ENCOUNTER 2024-06-23 16:56 | Emergency (ER) | payer MEDICARE, OTHER ==
[2024-06-23 17:56] LABS: BASOPHILS ABSOLUTE AUTO 0.04 K/uL (0.00-0.20); BASOPHILS PERCENT AUTO 0.4 % (0.0-1.0); EOSINOPHILS ABSOLUTE AUTO 0.22 K/uL (0.00-0.45); EOSINOPHILS PERCENT AUTO 2.3 % (0.0-6.0); HEMATOCRIT 40.5 % (37.0-47.0); IMMATURE GRAN ABSOLUTE AUTO 0.04 K/uL (0.00-0.05); IMMATURE GRAN PERCENT AUTO 0.4 % (0.0-0.4); LYMPHOCYTES ABSOLUTE AUTO 3.18 K/uL (1.00-4.80); LYMPHOCYTES PERCENT AUTO 33.2 % (24.0-44.0); MEAN CORPUSCULAR HEMOGLOBIN 31.9 pg (28.0-32.0); MEAN CORPUSCULAR HGB CONC 34.6 g/dL (32.0-36.0); MEAN CORPUSCULAR VOLUME 92.3 fL (83.0-99.0); MEAN PLATELET VOLUME 9.1 fL (9.4-12.3); MONOCYTES ABSOLUTE AUTO 0.63 K/uL (0.00-0.80); MONOCYTES PERCENT AUTO 6.6 % (0.0-8.0); NEUTROPHILS ABSOLUTE AUTO 5.46 K/uL (1.80-7.70); NEUTROPHILS PERCENT AUTO 57.1 % (41.0-71.0); PLATELET COUNT,PLT 381 K/uL (150-400); RED BLOOD CELL COUNT 4.39 M/uL (4.10-5.30); WHITE BLOOD CELL COUNT,WBC 9.57 K/uL (3.9-11.3)
[2024-06-23 18:29] LABS: A/G RATIO 1.3 (0.9-1.6); ALANINE AMINOTRANSFERASE,ALT 25 IU/L (14-63); ALBUMIN 4.1 g/dL (3.4-5.0); ALKALINE PHOSPHATASE 108 U/L (46-116); ASPARTATE AMNIOTRANSFERASE,AST 34 IU/L (15-37); BILIRUBIN TOTAL 0.5 mg/dL (0.2-1.0); BLOOD UREA NITROGEN,BUN 21 mg/dL (7.0-18.0); CALCIUM 9.5 mg/dL (8.5-10.1); CARBON DIOXIDE,CO2 27.8 mmol/L (21.0-32.0); CHLORIDE,CL 102 mmol/L (98-107); GLUCOSE RANDOM 77 mg/dL (74-106); MAGNESIUM 1.9 mg/dL (1.8-2.4); PROTEIN TOTAL,TP 7.2 g/dL (6.4-8.2); SODIUM,NA 141 mmol/L (136-145)
[2024-06-23 18:37] LABS: ESTIMATED GFR 61 mL/min (>60)
[2024-06-23] MEDS: LORazepam 2 MG/ML SDV IM ONE (18:50)
[2024-06-23] MEDS: Ketorolac 30 MG/ML SDV IM ONE (18:51)
== END 2024-06-23 19:49 | disposition home or self-care (01) ==
LOC: MW.ED 16:56
DX: M62.838 Other muscle spasm (principal); I10 Essential (primary) hypertension; E78.00 Pure hypercholesterolemia, unspecified; E11.9 Type 2 diabetes mellitus without complications; Z90.710 Acquired absence of both cervix and uterus; Z91.048 Other nonmedicinal substance allergy status; Z79.84 Long term (current) use of oral hypoglycemic drugs; Z79.899 Other long term (current) drug therapy; Z75.8 Other problems related to medical facilities and other health care
CPT/HCPCS: 36415; 80053; 83735; 85025; 93005; 96372; 99283; J1885; J2060

== ENCOUNTER 2024-06-24 04:46 | Inpatient (IN) | payer MEDICARE, OTHER ==
[2024-06-24 05:35] LABS: BASOPHILS PERCENT AUTO 0.4 % (0.0-1.0); EOSINOPHILS ABSOLUTE AUTO 0.06 K/uL (0.00-0.45); EOSINOPHILS PERCENT AUTO 0.2 % (0.0-6.0); HEMATOCRIT 45.4 % (37.0-47.0); HEMOGLOBIN 15.9 g/dL (12.0-16.0); IMMATURE GRAN ABSOLUTE AUTO 0.09 K/uL (0.00-0.05); IMMATURE GRAN PERCENT AUTO 0.4 % (0.0-0.4); LYMPHOCYTES ABSOLUTE AUTO 1.49 K/uL (1.00-4.80); LYMPHOCYTES PERCENT AUTO 6.2 % (24.0-44.0); MEAN CORPUSCULAR HEMOGLOBIN 32.4 pg (28.0-32.0); MEAN CORPUSCULAR VOLUME 92.5 fL (83.0-99.0); MEAN PLATELET VOLUME 9.2 fL (9.4-12.3); MONOCYTES ABSOLUTE AUTO 1.12 K/uL (0.00-0.80); MONOCYTES PERCENT AUTO 4.6 % (0.0-8.0); NEUTROPHILS PERCENT AUTO 88.2 % (41.0-71.0); PLATELET COUNT,PLT 367 K/uL (150-400); RED BLOOD CELL COUNT 4.91 M/uL (4.10-5.30); WHITE BLOOD CELL COUNT,WBC 24.16 K/uL (3.9-11.3)
[2024-06-24 05:51] LABS: A/G RATIO 1.2 (0.9-1.6); ALANINE AMINOTRANSFERASE,ALT 14 IU/L (14-63); ALBUMIN 3.8 g/dL (3.4-5.0); ALKALINE PHOSPHATASE 145 U/L (46-116); ASPARTATE AMNIOTRANSFERASE,AST 26 IU/L (15-37); BILIRUBIN TOTAL 0.7 mg/dL (0.2-1.0); BLOOD UREA NITROGEN,BUN 32 mg/dL (7.0-18.0); CALCIUM 9.8 mg/dL (8.5-10.1); CARBON DIOXIDE,CO2 25.1 mmol/L (21.0-32.0); CHLORIDE,CL 101 mmol/L (98-107); CREATININE 1.8 mg/dL (0.6-1.0); ESTIMATED GFR 30 mL/min (>60); GLUCOSE RANDOM 204 mg/dL (74-106); LIPASE 15 U/L (16-77); POTASSIUM,K 5.1 mmol/L (3.5-5.1); SODIUM,NA 140 mmol/L (136-145)
[2024-06-24] MEDS: Sodium Chloride 0.9% 500 ML IV SCH ×2 (05:51→17:56)
[2024-06-24] MEDS: Polyethylene Glycol 3350 Powder 17 GM Packet PO ONE ×3 (05:51→17:55)
[2024-06-24] MEDS: Sodium Chloride 0.9% 1,000 ML IV ONE ×3 (09:16→16:51)
[2024-06-24] MEDS ORDERED: Midazolam Oral Soln 10 MG/5 ML UD Cup PO PRN (09:30)
[2024-06-24] MEDS: Midazolam 1 MG/ML 2 ML SDV IVPUSH ONE (10:05)
[2024-06-24] MEDS: Iopamidol 755 MG/ML 500 ML Multipack Bottle IVPUSH STA (10:48)
[2024-06-24] MEDS: Hydrocortisone 2.5% Crm 30 GM Tube TOP ONE (12:00)
[2024-06-24 12:28] LABS: APPEARANCE,URINE SLT CLOUDY; GLUCOSE,URINE NEGATIVE (NEGATIVE); KETONES,URINE 15 mg/dL (NEGATIVE); LEUKOCYTE ESTERASE,URINE NEGATIVE (NEGATIVE); NITRITE,URINE NEGATIVE (NEGATIVE); OCCULT BLOOD,URINE NEGATIVE (NEGATIVE); PROTEIN,URINE 30 mg/dL (NEGATIVE)
[2024-06-24 12:32] LABS: BILIRUBIN,URINE MODERATE (NEGATIVE); COLOR,URINE DARK YELLOW
[2024-06-24 12:38] LABS: AMPHETAMINES SCREEN, URINE PRESUMPTIVE POSITIVE (CUTOFF=500); BARBITURATE SCREEN,URINE NEGATIVE (CUTOFF=200); BENZODIAZEPINES SCREEN,URINE PRESUMPTIVE POSITIVE (CUTOFF=150); BUPRENORPHINE SCREEN,URINE NEGATIVE (CUTOFF=10); METHADONE SCREEN, URINE NEGATIVE (CUTOFF=200); METHAMPHETAMINES SCREEN, URINE NEGATIVE (CUTOFF=500); OXYCODONE SCREEN,URINE NEGATIVE (CUT0FF=100); PCP SCREEN,URINE NEGATIVE (CUTOFF=25); THC SCREEN,URINE 20 NG/ML PRESUMPTIVE POSITIVE (CUTOFF=50)
[2024-06-24 12:56] LABS: BACTERIA,URINE FEW (NEGATIVE); MUCUS,URINE MODERATE (NONE-MOD); SQUAMOUS EPITHELIAL CELLS,UR FEW; WBC,URINE 0-2 (0-5/HPF)
[2024-06-24] MEDS: cefTRIAXone 2 GM in Sodium Chloride 0.9% 50 ML IV ONE (13:47)
[2024-06-24] MEDS ORDERED: Acetaminophen 325 MG Tab PO PRN (16:46)
[2024-06-24] MEDS: Sodium Chloride 0.9% 1,000 ML IV SCH (17:07)
[2024-06-24] MEDS: Baclofen 10 MG Tab PO SCH (17:10)
[2024-06-24 17:27] LABS: LACTIC ACID 2.2 mmol/L (0.4-2.0)
[2024-06-24] MEDS ORDERED: Naloxone 0.4 MG/ML SDV IVPUSH PRN (20:25)
[2024-06-24] MEDS: HYDROmorphone 0.5 MG/0.5 ML Syringe IVPUSH ONE ×2 (20:32→23:18)
[2024-06-24] MEDS: Carbidopa/Levodopa 50-200 MG Tab.ER PO SCH (21:00)
[2024-06-24] MEDS: Polyethylene Glycol 3350 Powder 17 GM Packet PO SCH (21:00)
[2024-06-24] MEDS: Docusate Sodium 100 MG Cap PO SCH (21:00)
[2024-06-24] MEDS: atorvaSTATin 10 MG Tab PO SCH (21:00)
[2024-06-25] MEDS ORDERED: Carbidopa/Levodopa 50-200 MG Tab.ER PO SCH (08:00)
[2024-06-25] MEDS ORDERED: amLODIPine 5 MG Tab PO SCH (09:00)
[2024-06-25] MEDS ORDERED: buPROPion 150 MG Tab.ER PO SCH (09:00)
== END 2024-06-24 23:51 | DRG 394 ==
LOC: MW.ED 04:46 → MW.MS 11:28 → OBSVTOIN 12:37
PROVIDERS: ADMIT Internal Medicine; ATTEND Internal Medicine
DX: K62.3 Rectal prolapse (principal); N17.9 Acute kidney failure, unspecified; S06.9X9A Unspecified intracranial injury with loss of consciousness of unspecified duration, initial encounter; K59.00 Constipation, unspecified; E78.00 Pure hypercholesterolemia, unspecified; E86.0 Dehydration; M19.90 Unspecified osteoarthritis, unspecified site; F41.9 Anxiety disorder, unspecified; F32.A Depression, unspecified; Z96.659 Presence of unspecified artificial knee joint; G25.81 Restless legs syndrome; R29.6 Repeated falls; D72.829 Elevated white blood cell count, unspecified; J44.9 Chronic obstructive pulmonary disease, unspecified; I25.10 Atherosclerotic heart disease of native coronary artery without angina pectoris; M54.9 Dorsalgia, unspecified; G89.29 Other chronic pain; E11.42 Type 2 diabetes mellitus with diabetic polyneuropathy; F17.210 Nicotine dependence, cigarettes, uncomplicated; I10 Essential (primary) hypertension; W22.01XA Walked into wall, initial encounter; R74.02 Elevation of levels of lactic acid dehydrogenase [LDH]; R55 Syncope and collapse; E11.9 Type 2 diabetes mellitus without complications; I25.2 Old myocardial infarction; Z95.1 Presence of aortocoronary bypass graft; Z87.19 Personal history of other diseases of the digestive system; Z98.890 Other specified postprocedural states; Z99.3 Dependence on wheelchair; Z91.048 Other nonmedicinal substance allergy status; Z79.84 Long term (current) use of oral hypoglycemic drugs; Z79.899 Other long term (current) drug therapy; Z90.710 Acquired absence of both cervix and uterus; W01.198A Fall on same level from slipping, tripping and stumbling with subsequent striking against other object, initial encounter
CPT/HCPCS: 36415; 70450; 71045; 72125; 74177; 80048; 80076; 80305; 81001; 83605; 83690; 83880; 84484; 85025; 87040 ×2; 93005; 96361; 99285; A9270 ×2; J2250; J7030; J7040; Q9967; 82947; 93010; 96365; 96374; 96375; 96376; 99235; G0378; J0696; J3490

== ENCOUNTER 2024-07-09 18:48 | Emergency (ER) | payer OTHER ==
[2024-07-09] MEDS: Diazepam 5 MG Tab PO ONE (21:00)
== END 2024-07-09 21:04 | disposition home or self-care (01) ==
LOC: MW.ED 18:48
DX: G25.81 Restless legs syndrome (principal); M62.838 Other muscle spasm; I25.2 Old myocardial infarction; I10 Essential (primary) hypertension; J45.909 Unspecified asthma, uncomplicated; E11.42 Type 2 diabetes mellitus with diabetic polyneuropathy; Z90.710 Acquired absence of both cervix and uterus; Z91.048 Other nonmedicinal substance allergy status; Z79.84 Long term (current) use of oral hypoglycemic drugs; Z79.899 Other long term (current) drug therapy
CPT/HCPCS: 99283; A9270

== ENCOUNTER 2024-07-20 21:30 | Emergency (ER) | payer MEDICARE, OTHER ==
[2024-07-20] MEDS: LORazepam 1 MG Tab PO ONE (21:59)
[2024-07-20] MEDS: Midazolam 1 MG/ML 2 ML SDV IM ONE (22:08)
== END 2024-07-20 23:27 | disposition home or self-care (01) ==
LOC: MW.ED 21:30
DX: M62.838 Other muscle spasm (principal); I10 Essential (primary) hypertension; E11.40 Type 2 diabetes mellitus with diabetic neuropathy, unspecified; E78.00 Pure hypercholesterolemia, unspecified; I25.2 Old myocardial infarction; M19.90 Unspecified osteoarthritis, unspecified site; J45.909 Unspecified asthma, uncomplicated; Z91.048 Other nonmedicinal substance allergy status; Z79.899 Other long term (current) drug therapy; Z79.1 Long term (current) use of non-steroidal anti-inflammatories (NSAID); Z79.84 Long term (current) use of oral hypoglycemic drugs; Z79.891 Long term (current) use of opiate analgesic; Z90.710 Acquired absence of both cervix and uterus
CPT/HCPCS: 96372; 99283; A9270; J2250

== ENCOUNTER 2024-08-22 06:42 | Emergency (ER) | payer MEDICARE, OTHER ==
[2024-08-22] MEDS: LORazepam 0.5 MG Tab PO ONE ×2 (07:19→08:20)
== END 2024-08-22 08:47 | disposition home or self-care (01) ==
LOC: MW.ED 06:42
DX: M62.838 Other muscle spasm (principal); I10 Essential (primary) hypertension; I25.2 Old myocardial infarction; E11.40 Type 2 diabetes mellitus with diabetic neuropathy, unspecified; E78.00 Pure hypercholesterolemia, unspecified; Z91.048 Other nonmedicinal substance allergy status; Z79.84 Long term (current) use of oral hypoglycemic drugs; Z79.899 Other long term (current) drug therapy
CPT/HCPCS: 99284; A9270; 99282

== ENCOUNTER 2024-10-10 13:59 | Inpatient (IN) | payer MEDICARE, OTHER ==
[2024-10-10] MEDS ORDERED: Sodium Chloride 0.9% 20 ML SDV IV PRN (14:33)
[2024-10-10] MEDS ORDERED: Sodium Chloride 0.9% 10 ML Syringe FLUSH PRN (14:33)
[2024-10-10] MEDS ORDERED: Sodium Chloride 0.9% 2.5 ML Syringe FLUSH PRN (14:33)
[2024-10-10] MEDS ORDERED: Naloxone 0.4 MG/ML SDV IVPUSH PRN (14:37)
[2024-10-10] MEDS: Sodium Chloride 0.9% 1,000 ML IV SCH (15:01)
[2024-10-10] MEDS: Morphine 2 MG/ML SYRINGE IVPUSH ONE (15:01)
[2024-10-10] MEDS: Ondansetron 4 MG/2 ML SDV IVPUSH ONE (15:01)
[2024-10-10 15:12] LABS: BASOPHILS ABSOLUTE AUTO 0.03 K/uL (0.00-0.20); BASOPHILS PERCENT AUTO 0.2 % (0.0-1.0); EOSINOPHILS ABSOLUTE AUTO 0.01 K/uL (0.00-0.45); EOSINOPHILS PERCENT AUTO 0.1 % (0.0-6.0); HEMATOCRIT 41.6 % (37.0-47.0); HEMOGLOBIN 14.4 g/dL (12.0-16.0); IMMATURE GRAN ABSOLUTE AUTO 0.04 K/uL (0.00-0.05); IMMATURE GRAN PERCENT AUTO 0.3 % (0.0-0.4); LYMPHOCYTES ABSOLUTE AUTO 0.63 K/uL (1.00-4.80); LYMPHOCYTES PERCENT AUTO 4.8 % (24.0-44.0); MEAN CORPUSCULAR HEMOGLOBIN 29.9 pg (28.0-32.0); MEAN CORPUSCULAR HGB CONC 34.6 g/dL (32.0-36.0); MEAN CORPUSCULAR VOLUME 86.5 fL (83.0-99.0); MEAN PLATELET VOLUME 9.8 fL (9.4-12.3); MONOCYTES ABSOLUTE AUTO 1.09 K/uL (0.00-0.80); MONOCYTES PERCENT AUTO 8.2 % (0.0-8.0); NEUTROPHILS ABSOLUTE AUTO 11.43 K/uL (1.80-7.70); NEUTROPHILS PERCENT AUTO 86.4 % (41.0-71.0); PLATELET COUNT,PLT 280 K/uL (150-400); RED BLOOD CELL COUNT 4.81 M/uL (4.10-5.30); WHITE BLOOD CELL COUNT,WBC 13.23 K/uL (3.9-11.3)
[2024-10-10 15:48] LABS: A/G RATIO 0.8 (0.9-1.6); ALANINE AMINOTRANSFERASE,ALT 12 IU/L (14-63); ALBUMIN 3.7 g/dL (3.4-5.0); ALKALINE PHOSPHATASE 118 U/L (46-116); ASPARTATE AMNIOTRANSFERASE,AST 19 IU/L (15-37); BILIRUBIN TOTAL 0.7 mg/dL (0.2-1.0); BLOOD UREA NITROGEN,BUN 26 mg/dL (7.0-18.0); CALCIUM 9.4 mg/dL (8.5-10.1); CARBON DIOXIDE,CO2 24.8 mmol/L (21.0-32.0); CHLORIDE,CL 90 mmol/L (98-107); CREATININE 1.2 mg/dL (0.6-1.0); GLUCOSE RANDOM 224 mg/dL (74-106); LIPASE 18 U/L (16-77); POTASSIUM,K 3.7 mmol/L (3.5-5.1); PROTEIN TOTAL,TP 8.1 g/dL (6.4-8.2); SODIUM,NA 130 mmol/L (136-145)
[2024-10-10] MEDS: Magnesium Sulfate 2 GM/50 mL 2 GM in Premix Bag 1 BAG IV ONE (15:48)
[2024-10-10 15:56] LABS: ESTIMATED GFR 48 mL/min (>60)
[2024-10-10] MEDS: Magnesium Sulfate 4 GM/100 mL 4 GM in Premix Bag 1 BAG IV ONE (16:05)
[2024-10-10] MEDS: Iopamidol 755 MG/ML 500 ML Multipack Bottle IVPUSH STA (16:43)
[2024-10-10] MEDS: Sodium Chloride 0.9% 1,000 ML IV ONE (17:40)
[2024-10-10 18:10] LABS: BILIRUBIN,URINE NEGATIVE (NEGATIVE); COLOR,URINE YELLOW; GLUCOSE,URINE NEGATIVE (NEGATIVE); KETONES,URINE TRACE mg/dL (NEGATIVE); LEUKOCYTE ESTERASE,URINE NEGATIVE (NEGATIVE); NITRITE,URINE POSITIVE (NEGATIVE); OCCULT BLOOD,URINE MODERATE (NEGATIVE); PROTEIN,URINE 100 mg/dL (NEGATIVE); UROBILINOGEN,URINE 0.2 EU/dL (<2.0)
[2024-10-10 18:11] LABS: APPEARANCE,URINE SLT CLOUDY
[2024-10-10 18:20] LABS: BACTERIA,URINE 4+ (NEGATIVE); MUCUS,URINE LIGHT (NONE-MOD); SQUAMOUS EPITHELIAL CELLS,UR OCCASIONAL
[2024-10-10] MEDS: cefTRIAXone 1 GM in Water For Injection, Sterile 10 ML IVPUSH ONE (18:30)
[2024-10-10] MEDS: Morphine 4 MG/ML Syringe IVPUSH ONE (18:45)
[2024-10-10] MEDS: Ondansetron 4 MG Tab PO PRN (23:41)
[2024-10-11] MEDS ORDERED: Ondansetron 4 MG/2 ML SDV IVPUSH PRN (01:17)
[2024-10-11] MEDS ORDERED: Glucagon,Human Recombinant 1 MG Vial IM PRN (01:33)
[2024-10-11] MEDS ORDERED: 50% Dextrose in Water 50 ML Syringe IVPUSH PRN (01:33)
[2024-10-11] MEDS: Sodium Chloride 0.9% 1,000 ML IV SCH (01:51)
[2024-10-11] MEDS: traMADol 50 MG Tab PO PRN (05:39)
[2024-10-11 05:53] LABS: BASOPHILS ABSOLUTE AUTO 0.01 K/uL (0.00-0.20); BASOPHILS PERCENT AUTO 0.2 % (0.0-1.0); HEMATOCRIT 35.1 % (37.0-47.0); HEMOGLOBIN 12.1 g/dL (12.0-16.0); IMMATURE GRAN ABSOLUTE AUTO 0.02 K/uL (0.00-0.05); IMMATURE GRAN PERCENT AUTO 0.4 % (0.0-0.4); LYMPHOCYTES ABSOLUTE AUTO 0.28 K/uL (1.00-4.80); LYMPHOCYTES PERCENT AUTO 6.2 % (24.0-44.0); MEAN CORPUSCULAR HEMOGLOBIN 29.8 pg (28.0-32.0); MEAN CORPUSCULAR HGB CONC 34.5 g/dL (32.0-36.0); MEAN CORPUSCULAR VOLUME 86.5 fL (83.0-99.0); MEAN PLATELET VOLUME 10.1 fL (9.4-12.3); MONOCYTES ABSOLUTE AUTO 0.38 K/uL (0.00-0.80); MONOCYTES PERCENT AUTO 8.4 % (0.0-8.0); NEUTROPHILS ABSOLUTE AUTO 3.86 K/uL (1.80-7.70); NEUTROPHILS PERCENT AUTO 84.8 % (41.0-71.0); PLATELET COUNT,PLT 166 K/uL (150-400); RED BLOOD CELL COUNT 4.06 M/uL (4.10-5.30); WHITE BLOOD CELL COUNT,WBC 4.55 K/uL (3.9-11.3)
[2024-10-11 06:33] LABS: A/G RATIO 0.8 (0.9-1.6); ALBUMIN 2.8 g/dL (3.4-5.0); ALKALINE PHOSPHATASE 96 U/L (46-116); BILIRUBIN TOTAL 0.5 mg/dL (0.2-1.0); BLOOD UREA NITROGEN,BUN 20 mg/dL (7.0-18.0); CALCIUM 8.1 mg/dL (8.5-10.1); CHLORIDE,CL 98 mmol/L (98-107); CREATININE 0.8 mg/dL (0.6-1.0); GLUCOSE RANDOM 125 mg/dL (74-106); POTASSIUM,K 3.5 mmol/L (3.5-5.1); PROTEIN TOTAL,TP 6.4 g/dL (6.4-8.2); SODIUM,NA 134 mmol/L (136-145)
[2024-10-11 06:41] LABS: LACTIC ACID 2.6 mmol/L (0.4-2.0)
[2024-10-11 06:42] LABS: ESTIMATED GFR 79 mL/min (>60)
[2024-10-11 06:45] LABS: ALANINE AMINOTRANSFERASE,ALT 11 IU/L (14-63)
[2024-10-11 06:46] LABS: ASPARTATE AMNIOTRANSFERASE,AST 23 IU/L (15-37)
[2024-10-11] MEDS: Insulin Aspart 100 Units/ML 3 ML Pen SUBCUT SCH (07:48)
[2024-10-11] MEDS ORDERED: traMADol 50 MG Tab PO PRN (07:58)
[2024-10-11] MEDS: Carbidopa/Levodopa 25-100 MG Tab.ER PO SCH ×2 (08:28→20:19)
[2024-10-11] MEDS: Baclofen 10 MG Tab PO SCH (08:50)
[2024-10-11] MEDS: buPROPion 150 MG Tab.ER PO SCH (08:50)
[2024-10-11] MEDS: Metoclopramide 10 MG/2 ML SDV IVPUSH PRN (09:24)
[2024-10-11] MEDS: Pregabalin 50 MG Cap PO SCH (10:59)
[2024-10-11] MEDS: Lisinopril 10 MG Tab PO SCH (11:00)
[2024-10-11] MEDS: Propranolol 60 MG Cap.ER PO SCH (11:00)
[2024-10-11] MEDS ORDERED: Baclofen 10 MG Tab PO SCH (12:00)
[2024-10-11] MEDS ORDERED: Gabapentin 100 MG Cap PO SCH (14:00)
[2024-10-11 14:16] LABS: LACTIC ACID 1.3 mmol/L (0.4-2.0)
[2024-10-11] MEDS: cefTRIAXone 1 GM in Water For Injection, Sterile 10 ML IVPUSH SCH (17:28)
[2024-10-11] MEDS: atorvaSTATin 10 MG Tab PO SCH (20:20)
[2024-10-12 05:59] LABS: EOSINOPHILS ABSOLUTE AUTO 0.02 K/uL (0.00-0.45); EOSINOPHILS PERCENT AUTO 0.5 % (0.0-6.0); HEMATOCRIT 35.6 % (37.0-47.0); HEMOGLOBIN 11.9 g/dL (12.0-16.0); IMMATURE GRAN ABSOLUTE AUTO 0.02 K/uL (0.00-0.05); IMMATURE GRAN PERCENT AUTO 0.5 % (0.0-0.4); LYMPHOCYTES ABSOLUTE AUTO 0.35 K/uL (1.00-4.80); LYMPHOCYTES PERCENT AUTO 8.7 % (24.0-44.0); MEAN CORPUSCULAR HGB CONC 33.4 g/dL (32.0-36.0); MEAN CORPUSCULAR VOLUME 86.8 fL (83.0-99.0); MONOCYTES ABSOLUTE AUTO 0.38 K/uL (0.00-0.80); MONOCYTES PERCENT AUTO 9.5 % (0.0-8.0); NEUTROPHILS ABSOLUTE AUTO 3.25 K/uL (1.80-7.70); NEUTROPHILS PERCENT AUTO 80.8 % (41.0-71.0); PLATELET COUNT,PLT 158 K/uL (150-400); WHITE BLOOD CELL COUNT,WBC 4.02 K/uL (3.9-11.3)
[2024-10-12 06:20] LABS: A/G RATIO 0.7 (0.9-1.6); ALANINE AMINOTRANSFERASE,ALT 17 IU/L (14-63); ALBUMIN 2.4 g/dL (3.4-5.0); ALKALINE PHOSPHATASE 183 U/L (46-116); ASPARTATE AMNIOTRANSFERASE,AST 39 IU/L (15-37); BILIRUBIN TOTAL 0.4 mg/dL (0.2-1.0); BLOOD UREA NITROGEN,BUN 11 mg/dL (7.0-18.0); CALCIUM 7.8 mg/dL (8.5-10.1); CARBON DIOXIDE,CO2 30.1 mmol/L (21.0-32.0); CHLORIDE,CL 100 mmol/L (98-107); CREATININE 0.7 mg/dL (0.6-1.0); GLUCOSE RANDOM 73 mg/dL (74-106); POTASSIUM,K 2.9 mmol/L (3.5-5.1); PROTEIN TOTAL,TP 5.7 g/dL (6.4-8.2); SODIUM,NA 138 mmol/L (136-145)
[2024-10-12 06:21] LABS: ESTIMATED GFR 92 mL/min (>60)
[2024-10-12] MEDS: Magnesium Sulfate 4 GM/100 mL 4 GM in Premix Bag 1 BAG IV ONE (10:23)
[2024-10-12] MEDS: NS with KCl 40mEq 1,000 ML IV SCH (10:23)
[2024-10-12] MEDS: Magnesium Sulfate 2 GM/50 mL 2 GM in Premix Bag 1 BAG IV ONE (10:55)
[2024-10-12] MEDS: Lisinopril 10 MG Tab PO SCH (17:14)
[2024-10-12] MEDS: cloNIDine 0.1 MG Tab PO ONE (21:51)
[2024-10-13 05:39] LABS: BASOPHILS ABSOLUTE AUTO 0.01 K/uL (0.00-0.20); BASOPHILS PERCENT AUTO 0.2 % (0.0-1.0); EOSINOPHILS ABSOLUTE AUTO 0.02 K/uL (0.00-0.45); EOSINOPHILS PERCENT AUTO 0.4 % (0.0-6.0); HEMATOCRIT 34.6 % (37.0-47.0); HEMOGLOBIN 11.8 g/dL (12.0-16.0); IMMATURE GRAN ABSOLUTE AUTO 0.02 K/uL (0.00-0.05); IMMATURE GRAN PERCENT AUTO 0.4 % (0.0-0.4); LYMPHOCYTES ABSOLUTE AUTO 0.59 K/uL (1.00-4.80); LYMPHOCYTES PERCENT AUTO 13.1 % (24.0-44.0); MEAN CORPUSCULAR HEMOGLOBIN 29.4 pg (28.0-32.0); MEAN CORPUSCULAR HGB CONC 34.1 g/dL (32.0-36.0); MEAN CORPUSCULAR VOLUME 86.1 fL (83.0-99.0); MONOCYTES PERCENT AUTO 8.9 % (0.0-8.0); NEUTROPHILS ABSOLUTE AUTO 3.45 K/uL (1.80-7.70); PLATELET COUNT,PLT 191 K/uL (150-400); RED BLOOD CELL COUNT 4.02 M/uL (4.10-5.30); WHITE BLOOD CELL COUNT,WBC 4.49 K/uL (3.9-11.3)
[2024-10-13 06:01] LABS: A/G RATIO 0.7 (0.9-1.6); ALANINE AMINOTRANSFERASE,ALT 21 IU/L (14-63); ALBUMIN 2.4 g/dL (3.4-5.0); ALKALINE PHOSPHATASE 296 U/L (46-116); ASPARTATE AMNIOTRANSFERASE,AST 42 IU/L (15-37); BILIRUBIN TOTAL 0.3 mg/dL (0.2-1.0); BLOOD UREA NITROGEN,BUN 6 mg/dL (7.0-18.0); CALCIUM 8.1 mg/dL (8.5-10.1); CARBON DIOXIDE,CO2 30.5 mmol/L (21.0-32.0); CHLORIDE,CL 100 mmol/L (98-107); CREATININE 0.7 mg/dL (0.6-1.0); GLUCOSE RANDOM 96 mg/dL (74-106); MAGNESIUM 1.5 mg/dL (1.8-2.4); POTASSIUM,K 2.8 mmol/L (3.5-5.1); SODIUM,NA 137 mmol/L (136-145)
[2024-10-13 06:02] LABS: ESTIMATED GFR 92 mL/min (>60)
[2024-10-13] MEDS: Magnesium Sulfate 4 GM/100 mL 4 GM in Premix Bag 1 BAG IV ONE (08:24)
[2024-10-13] MEDS: Lisinopril 10 MG Tab PO ONE (09:12)
[2024-10-13] MEDS: Potassium Chloride 20 MEQ Tab.ER PO SCH (09:18)
[2024-10-13 14:19] LABS: BLOOD UREA NITROGEN,BUN 9 mg/dL (7.0-18.0); CALCIUM 8.1 mg/dL (8.5-10.1); CARBON DIOXIDE,CO2 28.2 mmol/L (21.0-32.0); CHLORIDE,CL 97 mmol/L (98-107); CREATININE 0.7 mg/dL (0.6-1.0); GLUCOSE RANDOM 147 mg/dL (74-106); POTASSIUM,K 4.4 mmol/L (3.5-5.1); SODIUM,NA 132 mmol/L (136-145)
[2024-10-13 14:22] LABS: ESTIMATED GFR 92 mL/min (>60)
[2024-10-13] MEDS: cloNIDine 0.1 MG Tab PO ONE (14:43)
[2024-10-13] MEDS ORDERED: cloNIDine 0.1 MG Tab PO SCH (21:00)
== END 2024-10-13 16:15 | disposition home or self-care (01) | DRG 690 ==
LOC: MW.ED 13:59 → MW.MS 20:26
PROVIDERS: ADMIT Internal Medicine; ATTEND Internal Medicine
PROC: 0T9B70Z Drainage of Bladder with Drainage Device, Via Natural or Artificial Opening (ICD-10-PCS; principal; 2024-10-10)
DX: N12 Tubulo-interstitial nephritis, not specified as acute or chronic (principal); N10 Acute pyelonephritis; I24.89 Other forms of acute ischemic heart disease; N17.9 Acute kidney failure, unspecified; E11.9 Type 2 diabetes mellitus without complications; Z88.8 Allergy status to other drugs, medicaments and biological substances; Z91.09 Other allergy status, other than to drugs and biological substances; I25.10 Atherosclerotic heart disease of native coronary artery without angina pectoris; E78.00 Pure hypercholesterolemia, unspecified; I10 Essential (primary) hypertension; J45.909 Unspecified asthma, uncomplicated; M19.90 Unspecified osteoarthritis, unspecified site; M54.9 Dorsalgia, unspecified; G89.29 Other chronic pain; E11.40 Type 2 diabetes mellitus with diabetic neuropathy, unspecified; F41.9 Anxiety disorder, unspecified; F32.A Depression, unspecified; Z96.659 Presence of unspecified artificial knee joint; G25.81 Restless legs syndrome; N31.9 Neuromuscular dysfunction of bladder, unspecified; F17.210 Nicotine dependence, cigarettes, uncomplicated; Z79.899 Other long term (current) drug therapy; Z79.84 Long term (current) use of oral hypoglycemic drugs; Z95.1 Presence of aortocoronary bypass graft; I25.2 Old myocardial infarction; Z87.19 Personal history of other diseases of the digestive system; Z90.710 Acquired absence of both cervix and uterus
CPT/HCPCS: 36415; 51702; 71045; 71275; 74174; 80053; 81001; 83605 ×2; 83690; 83735; 84484 ×2; 85025; 87086; 93005; 96361; 96365; 96366; 96375; 96376; 99285; J0696; J2270 ×2; J2405; J3475 ×2; J7030 ×2; Q9967; 80048; 82947; 87040; 87088; 87186; 93010; 99222; 99231; 99238; A9270-GY; J1815-GY; J2765; J3480